=== PATIENT | male | born 1955 | race Caucasian/White ===

== ENCOUNTER 2019-07-27 12:36 | Inpatient (IN) | payer OTHER ==
[2019-07-27 13:16] LABS: Absolute Lymphocytes (CBC) 1.5 K/uL (0.7-4.9); Basophils % 0.6 % (0-1.3); Hematocrit 42.9 % (39.6-49.0); Lymphocytes % 11.2 % (15.3-44.8); MPV 8.4 fL (7.6-11.3); RBC Red Blood Cell Count 4.68 M/uL (4.33-5.43)
[2019-07-27 13:23] LABS: Protime INR 0.95
[2019-07-27 13:42] LABS: ALT/SGPT 15 U/L (12-78); AST/SGOT 19 U/L (15-37); Albumin 2.9 g/dL (3.4-5.0); Alkaline Phosphatase 89 U/L (45-117); BUN Blood Urea Nitrogen 14 mg/dL (7-18); Bicarbonate 30 mmol/L (21-32); Bilirubin Direct 0.2 mg/dL (0-0.2); Bilirubin Total 0.5 mg/dL (0.2-1.0); Glucose Level 102 mg/dL (74-106); Magnesium 2.3 mg/dL (1.8-2.4); NT PRO-BNP 192 pg/mL (<125); Potassium 3.9 mmol/L (3.5-5.1); Protein, Total 8.1 g/dL (6.4-8.2); Sodium Level 138 mmol/L (136-145); Troponin (Emerg Dept Use Only) < 0.02 ng/mL (0.0-0.045)
[2019-07-27] MEDS ORDERED: ENOXAPARIN 100 MG/ML SYR SQ ONE (14:08)
--- NOTE | 2019-07-27 14:22 | RAD REPORT ---
EXAM DESCRIPTION: CT - Chest For Pe Angio - 07/27/2019 2:12 pm CLINICAL HISTORY: Chest pain. dvt COMPARISON: No comparisons TECHNIQUE: CT angiogram of the pulmonary arteries was performed with MIP. All CT scans are performed using dose optimization technique as appropriate and may include automated exposure control or mA/KV adjustment according to patient size. FINDINGS: Small filling defects are seen within the pulmonary arterial branch to the posterior left lower lobe and medial right lower lobe suspected represent small distal pulmonary emboli. No more pro ximal significant pulmonary embolism seen. No acute aortic finding demonstrated. The lungs are clear. No significant pericardial or pleural fluid. No concerning bony finding. IMPRESSION: Small, distal subsegmental branch pulmonary emboli suspected in both posterior lower lob es. No acute lung findings.
--- NOTE | 2019-07-27 15:11 | ER ---
Nurse's Notes [facility] Name: Madeleine Ordoñez Age: 64 yrs Sex: Male : 1955 Arrival Date: 07/27/2019 Time: 12:40 Bed 18 Private MD: Diagnosis: Pulmonary embolism without acute cor pulmonale Presentation: 07/27 12:47 Presenting complaint: Patient states: Dr. Vazquez sent me here for US and they found a tw2 clot in my LEFT leg, my LEFT has been swollen for 1 month. Transition of care: patient was not received from another setting of care. Onset of symptoms was July 27, 2019. Risk Assessment: Do you want to hurt yourself or someone else? Patient reports no desire to harm self or others. Initial Sepsis Screen: Does the patient meet any 2 criteria? No. Patient's initial sepsis screen is negative. Does the patient have a suspected source of infection? No. Patient's initial sepsis screen is negative. Care prior to arrival: US. 12:47 Method Of Arrival: Wheelchair tw2 12:47 Acuity: SARA 3 tw2 Triage Assessment: 12:48 General: Appears in no apparent distress. unkempt, Behavior is cooperative. Pain: tw2 Denies pain. Derm:. Musculoskeletal: Swelling present in left leg. Historical: - Allergies: 12:49 No Known Allergies; tw2 - Home Meds: 12:49 None [Active]; tw2 - PMHx: 12:49 None; tw2 - PSHx: 12:49 None; tw2 - Immunization history:: Adult Immunizations. - Social history:: Smoking status: Patient uses tobacco products, smokes one pack cigarettes per day. x30 yrs, Patient uses alcohol, "4 beers daily, every day of week". street drugs, marijuana, "couple times a week". - Ebola Screening: : Patient denies travel to an Ebola-affected area in the 21 days before illness onset. Screenin:36 Abuse screen: Denies threats or abuse. Denies injuries from another. Nutritional aj1 screening: No deficits noted. Tuberculosis screening: No symptoms or risk factors identified. 16:12 Fall Risk Secondary diagnosis (15 points) impaired mobility. tw2 Assessment: 13:00 General: Appears in no apparent distress. comfortable, Behavior is calm, cooperative, aj1 appropriate for age. Pain: Denies pain. Neuro: Level of Consciousness is awake, alert, obeys commands, Oriented to person, place, time, situation. Cardiovascular: Heart tones S1 S2 present Patient's skin is warm and dry. Cardiovascular: Edema is 3+ to left leg. Respiratory: Airway is patent Respiratory effort is even, unlabored, Respiratory pattern is regular, symmetrical, Breath sounds are clear bilaterally. GI: No signs and/or symptoms were reported involving the gastrointestinal system. : No signs and/or symptoms were reported regarding the genitourinary system. EENT: No signs and/or symptoms were reported regarding the EENT system. Derm: No signs and/or symptoms reported regarding the dermatologic system. Skin is pale. Musculoskeletal: No signs and/or symptoms reported regarding the musculoskeletal system. Circulation, motion, and sensation intact. 14:00 Reassessment: Patient appears in no apparent distress at this time. No changes from aj1 previously documented assessment. Patient and/or family updated on plan of care and expected duration. Pain level reassessed. Patient is alert, oriented x 3, equal unlabored respirations, skin warm/dry/pink. 15:00 Reassessment: Patient appears in no apparent distress at this time. No changes from aj1 previously documented assessment. Patient and/or family updated on plan of care and expected duration. Pain level reassessed. Patient is alert, oriented x 3, equal unlabored respirations, skin warm/dry/pink. 15:00 Reassessment: Patient and/or family updated on plan of care and expected duration. Pain aj1 level reassessed. General: Appears in no apparent distress. comfortable, Behavior is calm, cooperative, appropriate for age. Neuro: Level of Consciousness is awake, alert, obeys commands, Oriented to person, place, time, situation. Cardiovascular: Heart tones S1 S2 present Patient's skin is warm and dry. Rhythm is sinus tachycardia. Respiratory: Airway is patent Respiratory effort is even, unlabored, Respiratory pattern is regular, symmetrical. GI: No signs and/or symptoms were reported involving the gastrointestinal system. : No signs and/or symptoms were reported regarding the genitourinary system. EENT: No signs and/or symptoms were reported regarding the EENT system. Derm: No signs and/or symptoms reported regarding the dermatologic system. Skin is pink, warm \\T\\ dry. normal. Musculoskeletal: Circulation, motion, and sensation intact. 15:30 Reassessment: Dr. Correa at bedside. aj1 16:00 Reassessment: Patient appears in no apparent distress at this time. No changes from aj1 previously documented assessment. Patient and/or family updated on plan of care and expected duration. Pain level reassessed. Patient is alert, oriented x 3, equal unlabored respirations, skin warm/dry/pink. 17:00 Reassessment: Patient and/or family updated on plan of care and expected duration. Pain aj1 level reassessed. General: Appears in no apparent distress. comfortable, Behavior is calm, cooperative, appropriate for age. Pain: Denies pain. Neuro: Level of Consciousness is awake, alert, obeys commands, Oriented to person, place, time, situation. Cardiovascular: Heart tones S1 S2 present Patient's skin is warm and dry. Rhythm is sinus tachycardia. Respiratory: Airway is patent Respiratory effort is even, unlabored, Respiratory pattern is regular, symmetrical. GI: No signs and/or symptoms were reported involving the gastrointestinal system. Derm: No signs and/or symptoms reported regarding the dermatologic system. Skin is pink, warm \\T\\ dry. normal. Musculoskeletal: No signs and/or symptoms reported regarding the musculoskeletal system. Circulation, motion, and sensation intact. 18:00 Reassessment: Patient appears in no apparent distress at this time. No changes from aj1 previously documented assessment. Patient and/or family updated on plan of care and expected duration. Pain level reassessed. Patient is alert, oriented x 3, equal unlabored respirations, skin warm/dry/pink. 18:27 Reassessment: Attempted to call report to floor, room not assigned to nurse at this hb time. 19:30 Reassessment: Patient appears in no apparent distress at this time. No changes from previously documented assessment. Patient and/or family updated on plan of care and expected duration. Pain level reassessed. Patient is alert, oriented x 3, equal unlabored respirations, skin warm/dry/pink. Vital Signs: 12:48 BP 137 / 112; Pulse 118; Resp 18; Temp 98.2(TE); Pulse Ox 100% on R/A; Weight 104.33 kg tw2 (R); Height 5 ft. 11 in. (180.34 cm); Pain 0/10; 13:36 BP 135 / 95; Pulse 108; Resp 19; Pulse Ox 96% on R/A; aj1 14:30 BP 131 / 85; Pulse 106; Resp 20; Pulse Ox 97% on R/A; aj1 15:30 BP 143 / 95; Pulse 103; Resp 20; Pulse Ox 95% on R/A; aj1 16:30 BP 148 / 84; Pulse 100; Resp 14; Pulse Ox 97% on R/A; aj1 17:30 BP 128 / 85; Pulse 106; Resp 18; Pulse Ox 95% on R/A; aj1 18:26 BP 126 / 79; Pulse 101; Resp 23; Pulse Ox 94% on R/A; aj1 19:31 BP 138 / 85; Pulse 92; Resp 15; Pulse Ox 92% on R/A; wh 12:48 Body Mass Index 32.08 (104.33 kg, 180.34 cm) tw2 ED Course: 12:40 Patient arrived in ED. as 12:46 Arm band placed on. tw2 12:48 Triage completed. tw2 12:54 Kash Glass MD is Attending Physician. tw4 12:57 Radiology exam delayed due to lab results not completed at this time. (BUN/Creatinine). vm2 13:00 Isabel Urbano RN is Primary Nurse. aj1 13:05 EKG done, by electronic test technician. reviewed by Kash Glass MD. sm3 13:08 Initial lab(s) drawn, by il, sent to lab. Inserted saline lock: 22 gauge in right kj1 antecubital area, using aseptic technique. Blood collected. 13:26 Radiology exam delayed due to lab results not completed at this time. (BUN/Creatinine). vm2 13:36 Patient has correct armband on for positive identification. aj1 13:36 No provider procedures requiring assistance completed. aj1 14:12 CT Chest For PE Angio In Process Unspecified. EDMS 15:09 Carmen Correa MD is Hospitalizing Provider. tw4 18:28 Patient admitted, IV remains in place. aj1 18:48 Report given to JOHN Tee on 2nd floor. aj1 Administered Medications: 14:23 Drug: Lovenox 1 mg/kg Route: Sub-Q; Site: right lower abdomen; aj1 18:27 Follow up: Response: No adverse reaction aj1 Outcome: 15:10 Decision to Hospitalize by Provider. tw4 19:50 Admitted to Tele accompanied by tech, via wheelchair, with chart. aj1 19:50 Condition: stable 19:50 Discharge instructions given to patient, Instructed on the need for admit, Demonstrated understanding of instructions. 19:56 Patient left the ED. Signatures: Dispatcher [employer] EDMS Isabel Urbano RN RN aj1 Cande Dobson Heather, RN RN Liane Luna RN RN tw2 Abigail Lopez 2 Charissa Leon Kash Glass MD MD tw4 Sarah Ellsworth sm3 Jasmyn Alcocer kj1
--- NOTE | 2019-07-27 15:11 | EDPHYS ---
Physician Documentation [facility] Name: Madeleine Ordoñez Age: 64 yrs Sex: Male : 1955 Arrival Date: 07/27/2019 Time: 12:40 Bed 18 Private MD: ED Physician Kash Glass HPI: 07/27 15:57 This 64 yrs old Male presents to ER via Wheelchair with complaints of Leg tw4 Swelling - blood clot. 15:57 The patient presents with swelling. The complaints affect the left quadriceps, left tw4 knee and left lovett. Context: The problem was sustained at home, resulted from. Onset: The symptoms/episode began/occurred today. Modifying factors: The symptoms are alleviated by nothing. the symptoms are aggravated by nothing. Severity of symptoms: At their worst the symptoms were moderate, in the emergency department the symptoms are unchanged. Historical: - Allergies: 12:49 No Known Allergies; tw2 - Home Meds: 12:49 None [Active]; tw2 - PMHx: 12:49 None; tw2 - PSHx: 12:49 None; tw2 - Immunization history:: Adult Immunizations. - Social history:: Smoking status: Patient uses tobacco products, smokes one pack cigarettes per day. x30 yrs, Patient uses alcohol, "4 beers daily, every day of week". street drugs, marijuana, "couple times a week". - Ebola Screening: : Patient denies travel to an Ebola-affected area in the 21 days before illness onset. ROS: 15:57 Constitutional: Negative for fever, chills, and weight loss, Eyes: Negative for injury, tw4 pain, redness, and discharge, Cardiovascular: Negative for chest pain, palpitations, and edema, Respiratory: Negative for shortness of breath, cough, wheezing, and pleuritic chest pain, Abdomen/GI: Negative for abdominal pain, nausea, vomiting, diarrhea, and constipation. 15:57 Skin: Negative for injury, rash, and discoloration, Neuro: Negative for headache, weakness, numbness, tingling, and seizure. 15:57 MS/extremity: Positive for swelling, tenderness. Exam: 15:57 Constitutional: This is a well developed, well nourished patient who is awake, alert, tw4 and in no acute distress. Head/Face: Normocephalic, atraumatic. Chest/axilla: Normal chest wall appearance and motion. Nontender with no deformity. No lesions are appreciated. Cardiovascular: Regular rate and rhythm with a normal S1 and S2. No gallops, murmurs, or rubs. Normal PMI, no JVD. No pulse deficits. Respiratory: Lungs have equal breath sounds bilaterally, clear to auscultation and percussion. No rales, rhonchi or wheezes noted. No increased work of breathing, no retractions or nasal flaring. Abdomen/GI: Soft, non-tender, with normal bowel sounds. No distension or tympany. No guarding or rebound. No evidence of tenderness throughout. Back: No spinal tenderness. No costovertebral tenderness. Full range of motion. 15:57 Neuro: Awake and alert, GCS 15, oriented to person, place, time, and situation. Cranial nerves II-XII grossly intact. Motor strength 5/5 in all extremities. Sensory grossly intact. Cerebellar exam normal. Normal gait. 15:57 Musculoskeletal/extremity: Extremities: noted in the left quadriceps, left knee and left lovett: swelling. Vital Signs: 12:48 BP 137 / 112; Pulse 118; Resp 18; Temp 98.2(TE); Pulse Ox 100% on R/A; Weight 104.33 kg tw2 (R); Height 5 ft. 11 in. (180.34 cm); Pain 0/10; 13:36 BP 135 / 95; Pulse 108; Resp 19; Pulse Ox 96% on R/A; aj1 14:30 BP 131 / 85; Pulse 106; Resp 20; Pulse Ox 97% on R/A; aj1 15:30 BP 143 / 95; Pulse 103; Resp 20; Pulse Ox 95% on R/A; aj1 16:30 BP 148 / 84; Pulse 100; Resp 14; Pulse Ox 97% on R/A; aj1 17:30 BP 128 / 85; Pulse 106; Resp 18; Pulse Ox 95% on R/A; aj1 18:26 BP 126 / 79; Pulse 101; Resp 23; Pulse Ox 94% on R/A; aj1 19:31 BP 138 / 85; Pulse 92; Resp 15; Pulse Ox 92% on R/A; wh 12:48 Body Mass Index 32.08 (104.33 kg, 180.34 cm) tw2 MDM: 12:54 Patient medically screened. tw4 15:57 Data reviewed: vital signs, nurses notes. Counseling: I had a detailed discussion with tw4 the patient and/or guardian regarding: the historical points, exam findings, and any diagnostic results supporting the discharge/admit diagnosis. Special discussion: I discussed with the patient/guardian in detail that at this point there is no indication for admission to the hospital. It is understood, however, that if the symptoms persist or worsen the patient needs to return immediately for re-evaluation. 16:00 Differential diagnosis: dislocation, open fracture, closed fracture, contusion, tw4 abrasion. Data interpreted: Pulse oximetry: Interpretation: normal. Physician consultation: Carmen Correa MD regarding admission, to the telemetry unit. and will see patient in ED. 07/27 12:55 Order name: Basic Metabolic Panel; Complete Time: 13:53 [facility] 07/27 13:53 Interpretation: Normal except: GFR 75. 07/27 12:55 Order name: CBC with Diff; Complete Time: 13:53 [facility] 07/27 13:53 Interpretation: Normal except: WBC 13.8; MAUREEN% 81.7; LYM% 11.2; NEUT A 11.3. 07/27 12:55 Order name: LFT's; Complete Time: 13:53 [facility] 07/27 13:53 Interpretation: Normal except: ALB 2.9; GLOB 5.2; A/G 0.6. 07/27 12:55 Order name: Magnesium; Complete Time: 13:53 [facility] 07/27 13:53 Interpretation: Within normal limits: MG 2.3. 07/27 12:55 Order name: NT PRO-BNP; Complete Time: 13:53 07/27 13:53 Interpretation: Normal except: NT PRO-BNP 192. 07/27 12:55 Order name: PT-INR; Complete Time: 13:53 07/27 13:54 Interpretation: Within normal limits: PT 11.2. 07/27 12:55 Order name: Troponin (emerg Dept Use Only); Complete Time: 13:53 07/27 13:54 Interpretation: Within normal limits: TROPED < 0.02. 07/27 12:55 Order name: EKG; Complete Time: 12:56 tw4 07/27 12:55 Order name: Cardiac monitoring; Complete Time: 13:04 4 07/27 12:55 Order name: EKG - Nurse/Tech; Complete Time: 13:04 4 07/27 12:55 Order name: CT Chest For PE Angio; Complete Time: 14:26 4 07/27 14:28 Interpretation: Abnormal. 07/27 15:07 Order name: Diet Regular; Complete Time: 15:08 kj1 07/27 12:55 Order name: IV Saline Lock; Complete Time: 13:16 4 07/27 12:55 Order name: Labs collected and sent; Complete Time: 13:16 4 07/27 12:55 Order name: O2 Per Protocol; Complete Time: 13:04 4 07/27 12:55 Order name: O2 Sat Monitoring; Complete Time: 13:04 4 Administered Medications: 14:23 Drug: Lovenox 1 mg/kg Route: Sub-Q; Site: right lower abdomen; aj1 18:27 Follow up: Response: No adverse reaction aj Disposition: 07/27/19 15:10 Hospitalization ordered by Carmen Correa for Inpatient Admission. Preliminary diagnosis is Pulmonary embolism without acute cor pulmonale. - Bed requested for Telemetry/MedSurg (Inpatient). - Status is Inpatient Admission. - Condition is Stable. - Problem is new. - Symptoms have improved. UTI on Admission? No Signatures: Dispatcher [employer] EDPA Darshana Kauffman Isabel Urbano RN RN aj1 Ananya Hanson RN RN dw Liane Luna RN RN tw2 Charissa Leon Kash Glass MD MD tw4 Corrections: (The following items were deleted from the chart) 13:24 12:56 Chest Single View+RAD.RAD.BRZ ordered. [facility] EDPA 16:21 15:10 Hospitalization Ordered by Carmen Correa MD for Inpatient Admission. Preliminary diagnosis is Pulmonary embolism without acute cor pulmonale. Bed requested for Telemetry/MedSurg (Inpatient). Status is Inpatient Admission. Condition is Stable. Problem is new. Symptoms have improved. UTI on Admission? No. tw4 17:49 16:21 07/27/2019 15:10 Hospitalization Ordered by Carmen Correa MD for Inpatient bd Admission. Preliminary diagnosis is Pulmonary embolism without acute cor pulmonale. Bed requested for Telemetry/MedSurg (Inpatient). Status is Inpatient Admission. Condition is Stable. Problem is new. Symptoms have improved. UTI on Admission? No. dw 19:56 17:49 07/27/2019 15:10 Hospitalization Ordered by Carmen Correa MD for Inpatient Admission. Preliminary diagnosis is Pulmonary embolism without acute cor pulmonale. Bed requested for Telemetry/MedSurg (Inpatient). Status is Inpatient Admission. Condition is Stable. Problem is new. Symptoms have improved. UTI on Admission? No. bd
--- NOTE | 2019-07-27 15:51 | EKG ---
Test Date: 2019-07-27 Test Time: 12:58:44 Forecast Analyst: CHIDI MEASUREMENT RESULTS: Intervals: Rate: 108 NM: 210 QRSD: 102 QT: 332 QTc: 444 [place]: P: 32 NM: 210 QRS: 12 T: 37 INTERPRETIVE STATEMENTS: Sinus tachycardia with 1st degree AV block with premature supraventricular complexes Possible Inferior infarct, age undetermined Cannot rule out Anteroseptal infarct, age undetermined Abnormal ECG No previous ECG available for comparison Electronically Signed On 07-27-19 15:50:58 CDT by Chung Bal
[2019-07-27] MEDS ORDERED: HYDROCODONE/APAP 7.5/325 MG TAB PO PRN (19:26)
[2019-07-27] MEDS ORDERED: LORazepam 2 MG/ML VIAL IV PRN (19:26)
[2019-07-27] MEDS ORDERED: FLUMAZENIL 0.1 MG/ML (5 mL VIAL) IV PRN (19:26)
[2019-07-27] MEDS ORDERED: ACETAMINOPHEN 500 MG TAB PO PRN (19:26)
[2019-07-27] MEDS ORDERED: ONDANSETRON 4 MG/2 ML VIAL IV PRN (19:26)
[2019-07-27] MEDS: IPRATROPIUM BROM 0.5MG/2.5ML NEB SCH (20:21)
[2019-07-27] MEDS: ALBUTEROL 2.5 MG/3 ML NEB SOL NEB SCH (20:21)
[2019-07-28] MEDS: ALBUTEROL 2.5 MG/3 ML NEB SOL NEB SCH ×4 (01:24→20:00)
[2019-07-28] MEDS: IPRATROPIUM BROM 0.5MG/2.5ML NEB SCH ×4 (01:24→20:00)
[2019-07-28] MEDS ORDERED: ENOXAPARIN 100 MG/ML SYR SQ SCH (02:00)
--- NOTE | 2019-07-28 02:36 | HP ---
Date of Admission: 07/27/2019 Primary Care Physician: Dony Vazquez MD. Consultants: Dr. Bob with Pulmonology. Code Status: Full. Chief Complaint: Left lower extremity swelling. History Of Present Illness: The patient is a 64-year-old male with no significant past medical histo ry other than undiagnosed COPD, who drinks alcohol on almost daily basis and smokes 3 packs of cigare ttes for over 30 years, has not seen a physician for a long period of time, saw Dr. Vazquez today, was f ound to have lower extremity swelling, had a Doppler venous study done as an outpatient basis, which was positive for left lower extremity DVT. Patient was transferred directly to the ER from the [facility] department. Patient states that he has been having swelling of his legs for the past several d ays his largely immobile at home. Lives with his sister and other brother. CT scan was also done, w hich showed bilateral PE. Patient was not found to be hypoxic. His symptoms are constant, moderate, progressively worsening. His workup revealed a white count of 13,000. Electrolytes were within nor mal limits. Troponin was negative. Patient was then referred for admission. When seen in the ER, salud bartlett was awake, alert, oriented x3, in some mild distress. The patient received a dose of Lovenox x1. Past Medical History: Patient has not been to a physician in a very long period of time, however, is a daily smoker for the past 30 years likely has undiagnosed COPD, certainly has a symptoms. Patient also has apparent history of essential tremors. Past Surgical History: None. Allergies: NO KNOWN DRUG ALLERGIES. Medications: The patient does not take any medications at home. Social History: Patient smokes approximately 1-1/2 to 3 packs per day for over 30 years. Drinks abo ut 4 beers daily and does use marijuana couple of times a week. No IV drug use. Patient lives at [facility] with his sister and brother, largely immobile, and leads a sedentary lifestyle. Family History: Both mother and brother had history of blood clots. Mother also had emphysema and l lindsay cancer, status post resection. Review of Systems: Ten-point system reviewed, negative except as per HPI. Physical Examination: Vital Signs: Blood pressure 137/112, pulse 118, respirations 18, temperature 98.2, O2 100% on room a ir. General: Awake, alert, oriented x3, obese male, ill-appearing, appears older than stated age. HEENT: Normocephalic, atraumatic. PERRLA. EOMI. Moist mucous membranes. Poor oral dentition. Co njunctivae anicteric. Neck: Supple. No JVD. Trachea midline. CV: S1 and S2. Sinus tachycardia. Peripheral pulses weak. RESPIRATORY: Clear to auscultation bilaterally. No wheezing or stridor. No use of accessory muscle s. Gastrointestinal: Abdomen is soft, nontender, nondistended. Positive bowel sounds. No guarding or rigidity. Extremities: No clubbing or cyanosis. Patient has significant edema of the left lower extremity ext ending all the way up to the thigh with calf tenderness. NEURO: Cranial nerves 2 through 12 intact grossly. No focal neurological deficit. Speech is normal . No focal neurological deficit. Skin: Left lower extremity erythema with streaking from the leg all the way up to the anterior media l thigh. Warm to touch. Minimal tenderness to palpation. PSYCH: Mood is okay. Affect is flat. Insight and judgment are fair. Laboratory Data: Sodium 138, potassium 3.9, chloride 103, CO2 of 30, BUN 14, creatinine 1, glucose 1 02, calcium 8.8, magnesium 2.3. Troponin less than 0.02. Albumin 2.9. INR 0.95. WBC 13.8, H and H 14.6 and 42.9, platelets 337, neutrophils 81%. Imaging Studies: CT scan for PE protocol shows small distal subsegmental branch pulmonary emboli alo pected in both posterior lower lobes. No acute lung findings. Extremity venous with compression of bilateral shows positive for left lower extremity DVT from the level of the common femoral vein to th e popliteal vein. No right lower extremity DVT seen. EKG shows sinus tachycardia with first-degree AV block with premature supraventricular complexes, possible inferior infarct, age undetermined. No previous EKG for comparison. Assessment And Plan: A 64-year-old male with: 1.Acute bilateral pulmonary embolism. Patient is not hypoxic. Patient will need to be on blood thi nners. We will start on Lovenox 1 mg/kg q.12 hours and transition to oral blood thinners. This is l ikely provoked due to immobility and sedentary lifestyle. May have genetic component due to family h istory of blood clots. We will likely benefit from hypercoagulable workup as an outpatient. We will consult Pulmonology. Obtain echocardiogram to rule out right ventricular strain. 2.Acute deep venous thrombosis of the common femoral vein all the way to the popliteal vein of the l eft lower extremity initial encounter. We will continue on Lovenox, likely provoked as mentioned abo ve. 3.Alcohol dependence. Patient is a chronic alcoholic with daily drinking. We will start on banana bag with multivitamins, IV fluids. We will place on Ativan p.r.n. We will need to monitor using CIW A protocol for withdrawal. 4.Likely chronic obstructive pulmonary disease. Patient has never been officially diagnosed; felipe lipscomb, has been smoker for over 30 years. Does report some shortness of breath with exertion. We will p lace on nebulizer treatments and no wheezing at this time. We will avoid steroids. 5.Essential tremor. 6.First-degree AV block. 7.Deep venous thrombosis prophylaxis addressed with Lovenox. Plan: Admit the patient to Med-Surg, place as inpatient. Length of stay, greater than 2 midnights. BETHANY Voice ID: [id number]
[2019-07-28 06:04] LABS: Absolute Lymphocytes (CBC) 2.5 K/uL (0.7-4.9); Basophils % 0.9 % (0-1.3); Hematocrit 36.8 % (39.6-49.0); Lymphocytes % 28.7 % (15.3-44.8); MPV 8.5 fL (7.6-11.3); RBC Red Blood Cell Count 4.03 M/uL (4.33-5.43)
[2019-07-28 06:20] LABS: ALT/SGPT 11 U/L (12-78); AST/SGOT 16 U/L (15-37); Albumin 2.4 g/dL (3.4-5.0); Alkaline Phosphatase 75 U/L (45-117); BUN Blood Urea Nitrogen 16 mg/dL (7-18); Bicarbonate 32 mmol/L (21-32); Bilirubin Total 0.4 mg/dL (0.2-1.0); Glucose Level 87 mg/dL (74-106); Magnesium 2.3 mg/dL (1.8-2.4); Phosphorus 3.3 mg/dL (2.5-4.9); Potassium 3.7 mmol/L (3.5-5.1); Protein, Total 6.7 g/dL (6.4-8.2); Sodium Level 140 mmol/L (136-145)
[2019-07-28] MEDS ORDERED: PNEUMOCOCCAL VACCINE 0.5 ML IMVAC ONE (08:00)
[2019-07-28] MEDS ORDERED: INFLUENZA VACCINE (for 3y+) 0.5 ML DOSE IMVAC ONE (08:00)
--- NOTE | 2019-07-28 08:36 | P.CNS ---
Date of Consult: 07/28/19 Reason for Consult: Massive DVT Chief Complaint: Swelling of her lower extremity for the past month History of Present Illness: Patient is 64 years of age admitted with progressive lower extremity edema for the past month he had a massive DVT in he involving his entire left leg denies any pain patient can ambulate no prior history of thromboembolic disease he does not have any medical problems does not take any other medications or anticoagulants no prior history of DVT no recent surgeries Allergies No Known Allergies Allergy (Verified 07/27/19 20:03) Home Medications: NK [No Home Meds] 07/27/19 - Past Medical/Surgical History Diabetic: No Past Medical History: Patient denies medical history Past Surgical History: Patient denies surgical history - Family History Father Medical History: Hypertension, Cancer Mother Medical History: Hypertension - Social History Smoking Status: Current every day smoker Alcohol use: Yes Caffeine use: Yes Place of Residence: Home Review of Systems 10-point ROS is otherwise unremarkable Cardiovascular: Edema (Edema of his left leg) Physical Examination Temp Pulse Resp BP Pulse Ox 98.2 F 94 H 18 132/82 98 07/28/19 04:00 07/28/19 04:00 07/28/19 04:00 07/28/19 04:00 07/28/19 04:00 General: Alert, In no apparent distress, Oriented x3 Neck: Supple Respiratory: Clear to auscultation bilaterally Cardiovascular: Edema (Massive edema of the left leg) Capillary refill: <2 Seconds Gastrointestinal: Normal bowel sounds, Soft and benign Laboratory Data (last 24 hrs) 07/27/19 13:08: PT 11.2, INR 0.95 07/27/19 13:08: WBC 13.8 H, Hgb 14.6, Hct 42.9, Plt Count 337 07/27/19 13:08: Sodium 138, Potassium 3.9, BUN 14, Creatinine 1.00, Glucose 102 , Magnesium 2.3, Total Bilirubin 0.5, AST 19, ALT 15, Alkaline Phosphatase 89 - Problems (1) DVT (deep venous thrombosis) Current Visit: Yes Status: Acute Plan: Patient is 64 years of age admitted with progressive edema of the left leg his left leg is significantly larger than the right leg he denies any pain patient is ambulating this has been progressive over the past month no prior history of thromboembolism no prior history of any medical problems he does not take any blood thinners including nonsteroidals or aspirin at home. No recent surgery. He does not take any of the medication the of the extent of his thrombosis will plan to administer thrombolytics therapy 100 mg over 2 hr of discuss with the patient in the presence of his son regarding the risks which include bleeding GI intracranial debriding the risk is less than 5% and increased to IV treatment versus transferring to [place] for him back to ri or catheter directed thrombolysis his hemodynamically stable as a small PE vital signs are stable patient receive Lovenox at 2:00 a.m. will proceed to giving him thrombolytics therapy 100 mg over 2 hr at around 2:00 p.m. transferred him to the ICU laboratory data all reviewed including radiology scans Qualifiers: DVT location: lower extremity Affected thrombotic vein of extremity: other lower extremity vein
[2019-07-28] MEDS ORDERED: POTASSIUM CL SA 10 MEQ TAB PO ONE (09:00)
[2019-07-28] MEDS ORDERED: FOLIC ACID 1 MG, MULTIVITAMINS INJ 10 ML, THIAMINE HCL 100 MG in NA CHLORIDE 0.9% 1,000 ML IV SCH (09:00)
[2019-07-28] MEDS: NICOTINE 21 MG/PAT TD SCH (09:00)
[2019-07-28 11:59] LABS: Protime INR 0.95
--- NOTE | 2019-07-28 12:42 | PN ---
Patient seen and examined. Chart reviewed and case discussed with RN and Dr. Bob. Patient mitchel es any significant pain. Continues to have significant swelling of his left lower extremity with hea vy clot burden. Medications: List reviewed. Physical Examination: Vital Signs: Temperature 98.2, heart rate 94, blood pressure 141/86, respirations 16, O2 at 99% on r oom air. General: Awake, alert, oriented x3. Some mild distress. Obese male, appears older than stated age. CV: S1, S2. Regular rate and rhythm. Peripheral pulses present. Respiratory: Moving air well bilaterally. No wheezing or stridor. No use of accessory muscles Jaki rointestinal: Abdomen is soft, nontender, nondistended. Positive bowel sounds. No guarding, no rig idity. Extremities: No clubbing or cyanosis. Patient has significant edema of the left lower extremity. Skin: Erythema, streaking of the left lower extremity with tenderness to palpation. Warm to touch. Neurologic: Nonfocal. Laboratory Data: Sodium 140, potassium 3.7, chloride 105, CO2 of 32, BUN 16, creatinine 0.81, glucos e 87, calcium 8.4, phosphorus 3.3, magnesium 2.3, albumin 2.4. WBC 8.8, H and H 12.6 and 36.8. Plat elets 325, neutrophils 59%. Assessment And Plan: 64-year-old male with: 1.Acute bilateral PE, stable. Continue with blood thinners. Patient is not hypoxic. Echocardiogra m is pending. Appreciate Pulmonology input. 2.Acute deep vein thrombosis of the left common femoral vein to the popliteal vein. Initial encount er, we will continue with Lovenox. However, patient will receive thrombolytics this afternoon due to heavy clot burden. Patient understands risks, wishes to proceed. He understands the alternatives w [facility] would be thrombectomy in [place], is agreeable to thrombolytics. We will transfer to ICU and gonzalez espinoza closely. 3.Alcohol dependence. We will continue with multivitamins and IV fluids. Ativan p.r.n. Watch for signs of withdrawal using CIWA protocol. 4.Chronic obstructive pulmonary disease. The patient has no official diagnosis however, has been a smoker for over 30 years. Continue with nebulizer treatments and supplemental oxygen as needed. 5.Essential tremor. 6.First-degree AV block. 7.Deep vein thrombosis prophylaxis. The patient is on Lovenox. Plan: Transfer to ICU. Thrombolytics this afternoon. Patient will need to be transitioned to oral anticoagulants before discharge, may benefit from hypercoagulable workup as outpatient once acute caryl atment has taken place. /SAMIA Voice ID: [id number] Report ID: [id number]
[2019-07-28] MEDS ORDERED: ALTEPLASE 100 ML IV ONE (14:00)
--- NOTE | 2019-07-28 14:13 | ECHO ---
HEIGHT: 5 ft 11 in WEIGHT: 230 lb 0 oz DATE OF STUDY: 07/28/[address]: Carmen Correa MD 2-DIMENSIONAL: YES M.MODE: YES DOPPLER: YES COLOR FLOW: YES TDS: YES PORTABLE: DEFINITY: BUBBLE STUDY: DIAGNOSIS: PULMONARY EMBOLISM, RULE OUT RIGHT VENTRICULAR STRAIN CARDIAC HISTORY: CATHERIZATION: NO SURGERY: NO PROSTHETIC VALVE: NO PACEMAKER: NO MEASUREMENTS (cm) DIASTOLIC (NORMALS) SYSTOLIC (NORMALS) IVSd 1.1 (0.6-1.2) LA Diam 3.5 (1.9-4.0) LVEF 55% LVIDd 4.6 (3.5-5.7) LVIDs 3.3 (2.0-3.5) %FS 29% LVPWd 1.1 (0.6-1.2) Ao Diam 3.1 (2.0-3.7) 2 DIMENSIONAL ASSESSMENT: RIGHT ATRIUM: NORMAL LEFT ATRIUM: NORMAL RIGHT VENTRICLE: NORMAL LEFT VENTRICLE: NORMAL TRICUSPID VALVE: NORMAL MITRAL VALVE: NORMAL PULMONIC VALVE: NORMAL AORTIC VALVE: NORMAL PERICARDIAL EFFUSION: NONE AORTIC ROOT: NORMAL LEFT VENTRICULAR WALL MOTION: NORMAL DOPPLER/COLOR FLOW: IMPAIRED LEFT VENTRICULAR RELAXATION. PHYSIOLOGIC TRICUSPID REGURGITATION. COMMENTS: NORMAL 2-DIMENSIONAL ECHOCARDIOGRAM. IMPAIRED LEFT VENTRICULAR RELAXATION. NORMAL RIGHT VENTRICULAR SYSTOLIC PRESSURE. NORMAL APPEARING RIGHT VENTRICLE. TECHNOLOGIST: LOREN CAMPOS
[2019-07-28] MEDS ORDERED: NA CHLORIDE 0.9% 50 ML ONE (15:00)
[2019-07-28 18:30] VITALS: BMI 32.2
[2019-07-28] MEDS: ENOXAPARIN 100 MG/ML SYR SQ SCH (23:32)
[2019-07-29] MEDS: IPRATROPIUM BROM 0.5MG/2.5ML NEB SCH ×2 (02:00→07:44)
[2019-07-29] MEDS: ALBUTEROL 2.5 MG/3 ML NEB SOL NEB SCH ×2 (02:00→07:44)
[2019-07-29 05:06] LABS: Absolute Lymphocytes (CBC) 1.9 K/uL (0.7-4.9); Basophils % 0.9 % (0-1.3); Hematocrit 35.9 % (39.6-49.0); Lymphocytes % 20.8 % (15.3-44.8); MPV 8.6 fL (7.6-11.3); RBC Red Blood Cell Count 3.93 M/uL (4.33-5.43)
[2019-07-29 05:24] LABS: ALT/SGPT 10 U/L (12-78); AST/SGOT 21 U/L (15-37); Albumin 2.3 g/dL (3.4-5.0); Alkaline Phosphatase 70 U/L (45-117); BUN Blood Urea Nitrogen 17 mg/dL (7-18); Bicarbonate 30 mmol/L (21-32); Bilirubin Total 0.4 mg/dL (0.2-1.0); Glucose Level 96 mg/dL (74-106); Potassium 3.6 mmol/L (3.5-5.1); Protein, Total 6.2 g/dL (6.4-8.2); Sodium Level 142 mmol/L (136-145)
[2019-07-29 06:46] LABS: Magnesium 2.1 mg/dL (1.8-2.4)
[2019-07-29] MEDS ORDERED: ALBUTEROL 2.5 MG/3 ML NEB SOL NEB PRN (08:01)
--- NOTE | 2019-07-29 08:03 | P.PN ---
Subjective Date of Service: 07/29/19 Chief Complaint: Massive DVT of the left leg Subjective: Improving (No change in patient's condition denies any pain in his left leg status post t-PA) Review of Systems Unremarkable Physical Examination - Vital Signs Temperature: 98.7 F Blood Pressure: 129/80 Pulse: 79 Respirations: 19 Pulse Ox (%): 99 - Physical Exam General: Alert, Oriented x3 Neck: Supple Respiratory: Clear to auscultation bilaterally Cardiovascular: Edema (Still has significant edema of the left leg. No cyanosis ) Assessment & Plan - Problems (Diagnosis) (1) DVT (deep venous thrombosis) Current Visit: Yes Status: Acute Plan: Patient is status post t-PA will monitor mid thigh a admit calf diameters resume Lovenox patient can ambulate vital signs satisfactory chemistries unremarkable patient can be transferred to the floor in this worsening of her edema are no change may consider a thrombectomy at a tertiary care hospital Qualifiers: DVT location: lower extremity Affected thrombotic vein of extremity: other lower extremity vein
[2019-07-29] MEDS: ENOXAPARIN 100 MG/ML SYR SQ SCH ×2 (08:57→20:49)
[2019-07-29] MEDS ORDERED: POTASSIUM 25 MEQ EFFERV TAB PO ONE (09:00)
[2019-07-29] MEDS: NICOTINE 21 MG/PAT TD SCH (09:00)
--- NOTE | 2019-07-29 12:24 | PN ---
Date of Progress Note: 07/29/2019 Subjective: Patient seen and examined. Chart reviewed and case discussed with RN and Dr. Bob. The patient was transferred to the ICU yesterday for tPA. He states he is doing better, tolerated the tPA well. Does not complain of any pain. Shortness of breath has improved. Medications: List reviewed. Physical Examination: Vital Signs: Temperature 98.7, heart rate 79, blood pressure 129/80, respirations 19, O2 99% on 2 L via nasal cannula. General: Awake, alert, oriented x3, obese male, in some mild distress, improving. CV: S1, S2. Regular rate and rhythm. Peripheral pulses present. Respiratory: Moving air well bilaterally. No wheezing or stridor. No use of accessory muscles. Gastrointestinal: Abdomen is soft, nontender, nondistended. Positive bowel sounds. No guarding or rigidity. Extremities: No clubbing or cyanosis. The patient has 3+ edema of the left lower extremity. Skin: Erythema of the left lower extremity. No rashes. Neuro: Cranial nerves 2 through 12 intact grossly. No focal neurological deficits. Sensation intact to light touch. Speech is normal. Laboratory Data: Sodium 142, potassium 3.6, chloride 109, CO2 30, BUN 17, creatinine 0.65, glucose 96, calcium 7.9, magnesium 2.1, albumin 2.3. WBC 9.1, H and H 12.3 and 35.9, platelets 282, neutrophils 67%. Assessment And Plan: This 64-year-old male with. 1. Acute bilateral PE. Patient is on room air, saturating well. We will continue with Lovenox. Echocardiogram revealed EF of 55%, impaired left ventricular relaxation, normal right ventricular systolic pressure, normal- appearing right ventricle. 2. Acute deep vein thrombosis of the left common femoral vein to the popliteal vein on initial encounter. The patient is status post tPA, now back on Lovenox. The patient has significant amount of swelling, slightly improved. We will continue to measure thigh and calf. May need thrombectomy if not improving. No signs of compartment syndrome at this time. 3. Alcohol dependence. Continue with multivitamins. Ativan p.r.n. We will continue to monitor for withdrawal symptoms using CIWA protocol. 4. Chronic obstructive pulmonary disease. Continue with nebulizer treatments and supplemental oxygen as needed. 5. Essential tremor. 6. First-degree AV block. 7. Deep venous thrombosis prophylaxis with Lovenox. Plan: Step down from ICU. We will continue Lovenox. Monitor for signs of improvement, likely discharge in the next 48 to 72 hours depending on clinical response. If worsening will need transfer for thrombectomy. Will ambulate, PT eval. SA/MODL Voice ID: [id number] Report ID: [id number] [facility]
[2019-07-29] MEDS ORDERED: ENOXAPARIN 100 MG/ML SYR SQ SCH (23:00)
[2019-07-30 05:07] LABS: ALT/SGPT 10 U/L (12-78); AST/SGOT 17 U/L (15-37); Albumin 2.4 g/dL (3.4-5.0); Alkaline Phosphatase 74 U/L (45-117); BUN Blood Urea Nitrogen 19 mg/dL (7-18); Bicarbonate 30 mmol/L (21-32); Bilirubin Total 0.3 mg/dL (0.2-1.0); Glucose Level 95 mg/dL (74-106); HDL Cholesterol 36 mg/dL (40-60); LDL Cholesterol, Calculated 124 (<130); Potassium 3.8 mmol/L (3.5-5.1); Protein, Total 6.5 g/dL (6.4-8.2); Sodium Level 142 mmol/L (136-145)
[2019-07-30] MEDS ORDERED: POTASSIUM 25 MEQ EFFERV TAB PO ONE (09:00)
[2019-07-30] MEDS: NICOTINE 21 MG/PAT TD SCH (09:00)
[2019-07-30] MEDS: ENOXAPARIN 100 MG/ML SYR SQ SCH (09:24)
--- NOTE | 2019-07-30 12:36 | P.PN ---
Subjective Date of Service: 07/30/19 Chief Complaint: Massive DVT of the left leg Subjective: Improving (Patient is improving he still complains of swelling in his leg up on measurements is thigh circumference is increased leg is still very swollen and warm patient still denies any pain) Review of Systems Unremarkable Physical Examination - Vital Signs Temperature: 98.0 F Blood Pressure: 138/80 Pulse: 95 Respirations: 16 Pulse Ox (%): 94 - Physical Exam General: Alert, In no apparent distress, Oriented x3 Respiratory: Clear to auscultation bilaterally Cardiovascular: Edema (Significant edema of the left leg ) Assessment & Plan - Problems (Diagnosis) (1) DVT (deep venous thrombosis) Current Visit: Yes Status: Acute Plan: Status post t-PA for extensive DVT involving the left leg no significant change this left leg is still very swollen patient denies any pain he is able to bear weight as left leg is swollen and warm recommend transfer to a tertiary care facility small pulmonary emboli denies any shortness of breath echocardiogram normal no evidence of right ventricular strain vital signs stable Qualifiers: DVT location: lower extremity Affected thrombotic vein of extremity: other lower extremity vein
[2019-07-30 13:09] VITALS: O2SAT 94
--- NOTE | 2019-07-30 15:06 | RAD REPORT ---
[facility] 2:59 pm CLINICAL HISTORY: Left leg swelling COMPARISON: leg ultrasound July 27, 2019 FINDINGS: Echogenic material consistent with acute thrombus is visualized within the left common naida ac and left external iliac veins. The IMPRESSION: Acute thrombus the left common iliac and left external iliac veins
[2019-07-30 17:55] VITALS: BP 136/81; TEMP 98.5
--- NOTE | 2019-07-30 18:26 | PN ---
Date of Progress Note: 07/30/2019 Subjective: Patient seen and examined. Chart reviewed and case discussed with RN and Dr. Bob. Patient still having significant amount of swelling. Family at the bedside. Treatment plan explained. All questions answered. Denies any significant pain. Medication List: Reviewed. Physical Examination: Vital Signs: Temperature 98, heart rate 95, blood pressure 138/80, respirations 16, O2 94% on room air. General: Awake, alert, oriented x3. Elderly male, appears older than his stated age, obese, not in any acute distress. CV: S1, S2. Regular rate and rhythm. Peripheral pulses present. RESPIRATORY: Moving air well bilaterally. No wheezing or stridor. No use of accessory muscles. Gastrointestinal: Abdomen is soft, nontender, nondistended. Positive bowel sounds. Extremities: No clubbing or cyanosis. Patient has 3+ edema of the left lower extremity. Skin: Significant erythema of the left lower extremity, slightly improved from previous. Warm to touch. Tender to palpation. Neuro: Cranial nerves intact. Nonfocal. Neurovascularly intact. Laboratory Data: Sodium 142, potassium 3.8, chloride 108, CO2 of 30, BUN 19, creatinine 0.7, glucose 95, calcium 7.7. Assessment: A 64-year-old male with. 1. Acute bilateral pulmonary embolism, improved. We will continue with Lovenox. Patient is on room air. Echo reviewed. 2. Acute deep vein thrombosis of the left common femoral vein to popliteal vein, status post tPA, now on Lovenox. Patient still has significant amount of swelling, erythema, and some pain. Patient will require thrombectomy. We will continue to measure thigh and calf daily. Patient has increased diameter of 1 cm from yesterday. 3. Alcohol dependence. We will continue multivitamin. Continue to monitor for signs of withdrawal using CIWA protocol. Patient has not required Ativan significantly. 4. Chronic obstructive pulmonary disease. Continue with nebulizer treatments. Patient not requiring oxygen at this time. 5. Essential tremor. 6. First-degree atrioventricular block. 7. Deep venous thrombosis prophylaxis, currently on Lovenox. Plan: Case discussed with Dr. Bob. He recommends transfer to higher level of care for thrombectomy. I agree with his assessment. Calf has not shown significant decrease in swelling, in fact measurements show 1 cm worsening from yesterday. We will initiate transfer process. Family updated. SA/MODL Voice ID: [id number] Report ID: [id number] MTDSarah
--- NOTE | 2019-07-31 06:06 | DS ---
Date of Discharge: 07/30/2019 Consultants: Dr. Bob with pulmonology. Procedures: TPA for excessive DVT. Admitting Diagnoses: 1.Acute bilateral pulmonary embolus. 2.Acute deep vein thrombosis of the common femoral vein to popliteal vein. 3.Alcohol dependence. 4.Chronic obstructive pulmonary disease. 5.Essential tremor. 6.First-degree atrioventricular block. 7.Nicotine dependence with cigarette smoking, continuous. Discharge Diagnoses: 1.Acute bilateral pulmonary embolus. 2.Acute deep vein thrombosis of the left iliac, femoral, and popliteal vein. 3.Alcohol dependence. 4.Chronic obstructive pulmonary disease, chronic bronchitis. 5.Essential tremor. 6.First-degree atrioventricular block. 7.Nicotine dependence with cigarette smoking, counseled. Hospital Course: Patient is a 64-year-old male who was transferred from the ultrasound department ge tting outpatient Doppler study to the ER for extensive DVT. Patient was found to have extensive clot burden on the left lower extremity. CT angio was done, which was positive for small bilateral PEs. Echocardiogram was also done to rule out right ventricular strain. EF was 50% to 55%. There was no right ventricular strain found. Patient was seen by Pulmonology. He was started on Lovenox. Patie nt did have elevated white count, which improved. Troponin was negative. He was able to be weaned o ff oxygen due to his heavy clot burden and significant swelling, which has been ongoing for 1 month. The patient was taken to the ICU for tPA. Patient did tolerate the procedure well, however, still h ad significant swelling, which was worsening. Ultrasound was then repeated at this time to visualize the iliac veins and clot was found in the left common iliac and left external iliac veins, therefore transfer was initiated to [facility] for thrombectomy procedure. I spoke with vascular tyler geon, Dr. Mayes, who agreed with transfer due to the extensive clot burden and the location of the cl ot. Patient was accepted by Dr. Rutherford, hospitalist and was transferred in a stable condition. Physical Examination: For physical exam findings, please see progress note dictated on the day of discharge. Total time spent discharging patient was 47 minutes. /SAMIA Voice ID: [id number] Report ID: [id number]
== END 2019-07-30 18:33 | disposition short-term general hospital (02) | DRG 176 ==
LOC: ER 12:36 → ERHOLD 15:47 → 2ND 18:48 → 3RD-ICU 07-28 12:11 → 2ND 07-29 12:50
PROVIDERS: ADMIT Family Medicine; ATTEND Family Medicine
DX: I26.99 Other pulmonary embolism without acute cor pulmonale (principal); I82.422 Acute embolism and thrombosis of left iliac vein; I82.412 Acute embolism and thrombosis of left femoral vein; I82.432 Acute embolism and thrombosis of left popliteal vein; F10.20 Alcohol dependence, uncomplicated; J44.9 Chronic obstructive pulmonary disease, unspecified; G25.0 Essential tremor; I44.0 Atrioventricular block, first degree; E66.9 Obesity, unspecified; Z68.32 Body mass index [BMI] 32.0-32.9, adult; Z23 Encounter for immunization; F17.210 Nicotine dependence, cigarettes, uncomplicated
CPT/HCPCS: 36415; 71046; 71275; 80048; 80053; 80061; 80076; 83735; 83880; 84100; 84484; 85025; 85610; 85730; 90471; 90670; 93005; 93306; 93970; 93971; 94640; 94760; 96372; 97116; 97161; 97530; 99285; J1650; J2997; J3411; J7030; Q2035; Q9967

== ENCOUNTER 2024-01-03 22:40 | Inpatient (IN) | payer OTHER ==
[2024-01-03] MEDS ORDERED: NA CHLORIDE 0.9% 1,000 ML ONE (23:00)
[2024-01-03 23:34] LABS: Absolute Basophils 0.1 K/uL (0-0.5); Absolute Monocytes 1.2 K/uL (0.1-1.3); Absolute Neutrophil 6.3 K/uL (1.8-8.0); Basophils % 0.9 % (0-1.3); Eosinophils % 0.4 % (0-4.4); Hematocrit 22.2 % (39.6-49.0); Hemoglobin 7.6 g/dL (13.6-17.9); Lymphocytes % 21.1 % (15.3-44.8); MCHC 34.3 g/dL (32.0-36.0); MCV 93.2 fL (80-100); MPV 8.7 fL (7.6-11.3); Neutrophils % 65.6 % (41.7-73.7); Nucleated Red Blood Cells % 0.1 % (0-0); Platelets 283 thou/uL (152-406); RBC Red Blood Cell Count 2.38 M/uL (4.33-5.43); Red Cell Distribution Width 14.7 % (12.1-15.2)
[2024-01-04 00:06] LABS: PT Prothrombin Time 239.1 SECONDS (9.5-12.5); PTT, Activated Partial Thromb 75.4 SECONDS (24.3-36.9)
[2024-01-04 00:09] LABS: Protime INR 23.84
[2024-01-04 00:10] LABS: Albumin 2.8 g/dL (3.4-5.0); Albumin/Globulin Ratio 0.7 (1.1-1.8); Anion Gap 16.3 mEq/L (5.0-15.0); Bilirubin Total 0.3 mg/dL (0.2-1.0); Potassium 5.3 mEq/L (3.5-5.1); Protein, Total 6.8 g/dL (6.4-8.2)
[2024-01-04 00:20] LABS: Troponin High Sensitivity 67.2 pg/mL (<58.9)
--- NOTE | 2024-01-04 00:55 | EDPHYS ---
Physician Documentation [facility] Name: Madeleine Ordoñez Age: 68 yrs Sex: Male : 1955 Arrival Date: 01/03/2024 Time: 22:40 Bed 3 Private MD: ED Physician Lio Castañeda HPI: 01/02 23:09 This 68 yrs old Male presents to ER via Unassigned with complaints of confusion. rt 23:09 Patient presents to the ED with reported confusion. He had finished a treatment for UTI rt with antibiotics. Reports being thirsty, but denies acute complaints at this time to include abdominal pain. The patient denies any other acute complaints. Patient's sister reported that the patient was "spacing out." States that he was confused. He denies this. Symptoms are moderate in severity, no other aggravating relieving factors.. Historical: - Allergies: 23:15 No Known Allergies; tm6 - PSHx: 23:15 Stented artery; tm6 - Immunization history:: Adult Immunizations up to date, Client reports having NOT received the Covid vaccine. Flu vaccine is not up to date. - Social history:: Smoking status: Patient reports the use of cigarette tobacco products, smokes one-half pack cigarettes per day. ROS: 23:09 Constitutional: Negative for fever, chills, and weight loss, Cardiovascular: Negative rt for chest pain, palpitations, and edema, Respiratory: Negative for shortness of breath, cough, wheezing, and pleuritic chest pain, Abdomen/GI: Negative for abdominal pain, nausea, vomiting, diarrhea, and constipation, Skin: Negative for injury, rash, and discoloration, Psych: Negative for depression, anxiety, suicide ideation, homicidal ideation, and hallucinations, 23:09 Neuro: Positive for altered mental status, Negative for speech changes, Exam: 23:09 Constitutional: This is a well developed, well nourished patient who is awake, alert, rt and in no acute distress. Head/Face: Normocephalic, atraumatic. Chest/axilla: Normal chest wall appearance and motion. Nontender with no deformity. No lesions are appreciated. Cardiovascular: Regular rate and rhythm with a normal S1 and S2. No gallops, murmurs, or rubs. Normal PMI, no JVD. No pulse deficits. Respiratory: Lungs have equal breath sounds bilaterally, clear to auscultation and percussion. No rales, rhonchi or wheezes noted. No increased work of breathing, no retractions or nasal flaring. Abdomen/GI: Soft, non-tender, with normal bowel sounds. No distension or tympany. No guarding or rebound. No evidence of tenderness throughout. Skin: Warm, dry with normal turgor. Normal color with no rashes, no lesions, and no evidence of cellulitis. MS/ Extremity: Pulses equal, no cyanosis. Neurovascular intact. Full, normal range of motion. Neuro: Awake and alert, GCS 15, oriented to person, place, time, and situation. Cranial nerves II-XII grossly intact. Motor strength 5/5 in all extremities. Sensory grossly intact. Cerebellar exam normal. Normal gait. 23:09 ENT: Dry mucous membranes. 23:09 ECG was reviewed by the Attending Physician. Vital Signs: 23:11 BP 112 / 63; Pulse 98; Resp 18; Temp 97.3(TE); Pulse Ox 99% on R/A; Weight 81.65 kg; tm6 Height 5 ft. 11 in. ; Pain 0/10; 01/03 00:26 BP 118 / 64; Pulse 92; Resp 14; Pulse Ox 100% on R/A; Pain 0/10; tm6 03:10 BP 132 / 79; Pulse 98; Resp 14; Pulse Ox 100% on R/A; Pain 0/10; tm6 01/02 23:11 Body Mass Index 25.10 (81.65 kg, 180.34 cm) 6 01/02 23:11 Pain Scale: Adult tm6 01/03 00:26 Pain Scale: Adult tm6 03:10 Pain Scale: Adult tm6 MDM: 01/02 22:42 Patient medically screened. rt 01/03 01:24 Differential Diagnosis Renal failure, intracranial hemorrhage, supratherapeutic. Data rt reviewed: vital signs, nurses notes. Consideration of Admission/Observation Patient was admitted/placed on observation. Management of patient was discussed with the following: Hospitalist: Agrees to admit. I considered the following discharge prescriptions or medication management in the emergency department Medications were administered in the Emergency Department. See MAR. Independent interpretation of the following test(s) in the Emergency Department CT Scan: My interpretation is No intracranial hemorrhage seen interpretation of CT scan images. Care significantly affected by the following chronic conditions: Anticoagulation for DVT, PE. Counseling: I had a detailed discussion with the patient and/or guardian regarding the historical points, exam findings, and any diagnostic results supporting the discharge/admit diagnosis, lab results, radiology results, the need for further work-up and treatment in the hospital. 01/02 22:44 Order name: Blood Culture Adult (2) rt 01/02 22:44 Order name: CBC with Diff rt 01/02 22:44 Order name: CMP; Complete Time: 00:22 rt 01/02 22:44 Order name: Lactate w/ 2H reflex if indic.; Complete Time: 00:22 rt 01/02 22:44 Order name: Protime (+inr); Complete Time: 00:22 rt 01/02 22:44 Order name: Ptt, Activated; Complete Time: 00:22 rt 01/02 22:44 Order name: Urinalysis w/ reflexes rt 01/02 22:44 Order name: Troponin HS; Complete Time: 00:22 rt 01/03 00:09 Order name: Manual Differential EDMS 01/03 00:48 Order name: CMP; Complete Time: 01:32 rt 01/03 00:48 Order name: CBC with Diff; Complete Time: 01:32 rt 01/03 00:48 Order name: PT-INR rt 01/03 00:48 Order name: Troponin High Sensitivity; Complete Time: 01:32 rt 01/03 01:32 Order name: Type And Screen rt 01/03 01:40 Order name: Fresh Frozen Plasma EDMS 01/03 01:40 Order name: Packed RBC Leukored EDMS 01/03 01:47 Order name: CBC with Automated Diff EDMS 01/03 01:47 Order name: CBC with Automated Diff EDMS 01/03 01:47 Order name: CBC with Automated Diff EDMS 01/03 01:47 Order name: Comprehensive Metabolic Panel EDMS 01/03 01:47 Order name: Comprehensive Metabolic Panel EDMS 01/03 01:47 Order name: Comprehensive Metabolic Panel EDMS 01/03 01:47 Order name: Magnesium EDMS 01/03 01:47 Order name: Magnesium EDMS 01/03 01:47 Order name: Phosphorus EDMS 01/03 01:47 Order name: Phosphorus EDMS 01/03 01:47 Order name: Protime (+INR) EDMS 01/03 01:47 Order name: Protime (+INR) EDMS 01/03 01:47 Order name: Protime (+INR) EDMS 01/03 01:47 Order name: Protime (+INR) EDMS 01/03 01:51 Order name: Hematocrit EDMS 01/03 01:51 Order name: Hematocrit EDMS 01/03 01:51 Order name: Hematocrit EDMS 01/03 01:51 Order name: Hematocrit EDMS 01/03 01:51 Order name: Hemoglobin EDMS 01/03 01:51 Order name: Hemoglobin EDMS 01/03 01:51 Order name: Hemoglobin EDMS 01/03 01:51 Order name: Hemoglobin EDMS 01/03 01:51 Order name: Hemoglobin EDSC 01/03 02:20 Order name: ABO/RH no charge EDSC 01/02 22:44 Order name: Chest Single View XRAY rt 01/02 22:44 Order name: CT Head Brain wo Cont rt 01/02 22:44 Order name: EKG; Complete Time: 22:44 rt 01/02 22:44 Order name: Accucheck; Complete Time: 23:23 rt 01/02 22:44 Order name: Cardiac monitoring; Complete Time: 23:10 rt 01/02 22:44 Order name: EKG - Nurse/Tech; Complete Time: 23:10 rt 01/02 22:44 Order name: IV Saline Lock - Large Bore; Complete Time: 23:22 rt 01/02 22:44 Order name: Labs collected and sent; Complete Time: 23:22 rt 01/02 22:44 Order name: O2 Per Protocol; Complete Time: 23:11 rt 01/02 22:44 Order name: O2 Sat Monitoring; Complete Time: 23:11 rt 01/02 22:44 Order name: Vital Signs; Complete Time: 23:11 rt 01/02 22:44 Order name: IV Saline Lock; Complete Time: 23:22 rt EC/23 23:09 Rate is 98 beats/min. Rhythm is regular, Normal Sinus Rhythm with No ectopy. QRS [place] rt is Normal. OR interval is normal. QRS interval is normal. QT interval is normal. No Q waves. Clinical impression: NSR w/ Non-specific ST/T Changes. Administered Medications: 23: Drug: NS 0.9% IV 1000 ml IV at 1 bolus Per protocol; 1000 mL bolus Route: IV; Rate: 1 tm6 bolus; Site: left antecubital; 01/03 03:54 Follow up: IV Status: Completed infusion; IV Intake: 1000ml km8 01:29 Drug: Phytonadione IM 10 mg IM once Route: IM; Site: left deltoid; tm6 03:54 Follow up: Response: No adverse reaction km8 Disposition Summary: 01/04/24 00:54 Hospitalization Ordered Notes: Hospitalization Status: Inpatient Admission rt Provider: Dinh Self rt Location: Telemetry/[facility] (Inpatient) rt Condition: Guarded rt Problem: new rt Symptoms: are unchanged rt Bed/Room Type: Standard rt Room Assignment: 409(01/04/24 01:48) rv1 Diagnosis - Supratherapeutic INR rt - Acute renal failure rt Forms: - Medication Reconciliation Form rt - SBAR form rt - Leadership Thank You Letter rt Critical care time excluding procedures: 01:24 Critical care time: Bedside Care: 30 minutes, Consultation: 10 minutes. Total time: 40 rt minutes Signatures: Dispatcher [employer] Lio Ibanez MD MD rt Marivel Wu rv1 Romulo Arce RN RN tm6 Marcella Redmond RN km8 Corrections: (The following items were deleted from the chart) 01:48 00:54 rt rv1
--- NOTE | 2024-01-04 00:55 | ER ---
Nurse's Notes [facility] Name: Madeleine Ordoñez Age: 68 yrs Sex: Male : 1955 Arrival Date: 01/03/2024 Time: 22:40 Bed 3 Private MD: Diagnosis: Supratherapeutic INR;Acute renal failure Presentation: 01/02 23:11 Chief complaint: EMS states: family called, stating patient was disoriented and having tm6 diarrhea. Has had a UTI since Friday. Patient A\T\Ox4 for EMS. Coronavirus screen: Vaccine status: Patient reports being unvaccinated. Ebola Screen: Patient negative for fever greater than or equal to 101.5 degrees Fahrenheit, and additional compatible Ebola Virus Disease symptoms Patient denies exposure to infectious person. Patient denies travel to an Ebola-affected area in the 21 days before illness onset. No symptoms or risks identified at this time. Initial Sepsis Screen: Does the patient meet any 2 criteria? HR > 90 bpm. Does the patient have a suspected source of infection? No. Patient's initial sepsis screen is negative. Risk Assessment: Do you want to hurt yourself or someone else? Patient reports no desire to harm self or others. Onset of symptoms was January 03, 2024. Care prior to arrival: Medication(s) given: Normal saline infusion, 1000 mL. 23:11 Method Of Arrival: EMS: [facility] tm6 23:11 Acuity: SARA 3 tm6 Triage Assessment: 23:15 General: Appears in no apparent distress. unkempt, Behavior is calm, cooperative. Pain: tm6 Denies pain. EENT: No signs and/or symptoms were reported regarding the EENT system. Neuro: Level of Consciousness is awake, alert, obeys commands, Oriented to person, place, time, situation. Cardiovascular: Capillary refill < 3 seconds Patient's skin is warm and dry. Respiratory: Airway is patent Respiratory effort is even, unlabored, Respiratory pattern is regular, symmetrical. GI: Abdomen is flat, non-distended, Bowel sounds present X 4 quads. Abd is soft and non tender Reports diarrhea. : No signs and/or symptoms were reported regarding the genitourinary system. : No signs and/or symptoms were reported regarding the genitourinary system. Reports recent UTI. Derm: No signs and/or symptoms reported regarding the dermatologic system. Musculoskeletal: No signs and/or symptoms reported regarding the musculoskeletal system. Historical: - Allergies: 23:15 No Known Allergies; tm6 - PSHx: 23:15 Stented artery; tm6 - Immunization history:: Adult Immunizations up to date, Client reports having NOT received the Covid vaccine. Flu vaccine is not up to date. - Social history:: Smoking status: Patient reports the use of cigarette tobacco products, smokes one-half pack cigarettes per day. Screenin:20 [facility] ED Fall Risk Assessment (Adult) History of falling in the last 3 months, tm6 including since admission No falls in past 3 months (0 pts) Confusion or Disorientation No (0 pts) Intoxicated or Sedated No (0 pts) Impaired Gait No (0 pts) Mobility Assist Device Used No (0 pt) Altered Elimination Yes (1 pt) Score/Fall Risk Level 0 - 2 = Low Risk Oriented to surroundings, Maintained a safe environment. Abuse screen: Denies threats or abuse. Denies injuries from another. Nutritional screening: No deficits noted. Tuberculosis screening: No symptoms or risk factors identified. Assessment: 23:20 Reassessment: see triage assessment. tm6 01/03 00:26 Reassessment: Patient and/or family updated on plan of care and expected duration. Pain tm6 level reassessed. Patient is alert, oriented x 3, equal unlabored respirations, skin warm/dry/pink. 01:02 Reassessment: Roz (sister) updated [phone]. tm6 03:11 Reassessment: Patient and/or family updated on plan of care and expected duration. Pain tm6 level reassessed. Patient is alert, oriented x 3, equal unlabored respirations, skin warm/dry/pink. 04:05 Reassessment: Patient and/or family updated on plan of care and expected duration. Pain tm6 level reassessed. Patient is alert, oriented x 3, equal unlabored respirations, skin warm/dry/pink. Vital Signs: 01/02 23:11 BP 112 / 63; Pulse 98; Resp 18; Temp 97.3(TE); Pulse Ox 99% on R/A; Weight 81.65 kg; tm6 Height 5 ft. 11 in. ; Pain 0/10; 01/03 00:26 BP 118 / 64; Pulse 92; Resp 14; Pulse Ox 100% on R/A; Pain 0/10; tm6 03:10 BP 132 / 79; Pulse 98; Resp 14; Pulse Ox 100% on R/A; Pain 0/10; tm6 01/02 23:11 Body Mass Index 25.10 (81.65 kg, 180.34 cm) tm6 01/02 23:11 Pain Scale: Adult tm6 01/03 00:26 Pain Scale: Adult tm6 03:10 Pain Scale: Adult tm6 Vitals: 01/02 23:20 Cardiac Rhythm Assessment Regular Sinus rhythm. tm6 ED Course: 22:42 Patient arrived in ED. lg3 22:42 Lio Castañeda MD is Attending Physician. rt 22:57 Romulo Arce, RN is Primary Nurse. tm6 23:11 EKG done, by ED staff, reviewed by Lio Castañeda MD. tm6 23:15 Triage completed. tm6 23:15 Arm band placed on right wrist. EKG completed in triage. Results shown to MD. EKG tm6 completed in triage. Results shown to MD. 23:20 Patient has correct armband on for positive identification. Placed in gown. Bed in low tm6 position. Call light in reach. Side rails up X2. Provided Education on: plan of care. Client placed on continuous cardiac and pulse oximetry monitoring. NIBP monitoring applied. front desk monitor on. Pulse ox on. NIBP on. 23:[address] via stretcher. tm6 23:21 Inserted saline lock: 24 gauge in left wrist, using aseptic technique. Blood collected. ty 23:22 Troponin HS Sent. tm6 23:22 Blood Culture Adult (2) Sent. tm6 23:22 CBC with Diff Sent. tm6 23:22 CMP Sent. tm6 23:22 Lactate w/ 2H reflex if indic. Sent. tm6 23:22 Protime (+inr) Sent. tm6 23:22 Ptt, Activated Sent. tm6 23:22 Urinalysis w/ reflexes Sent. tm6 23:22 Noise minimized. Warm blanket given. Repositioned patient. Cleaned of incontinence. tm6 23:29 Chest Single View XRAY In Process Unspecified. EDMS 23:31 CT Head Brain wo Cont In Process Unspecified. EDMS 01/03 00:54 Dinh Self is Hospitalizing Provider. rt 01:00 Troponin High Sensitivity Sent. tm6 01:00 PT-INR Sent. tm6 01:00 CBC with Diff Sent. tm6 01:00 CMP Sent. tm6 03:53 Patient admitted, IV remains in place. km8 03:53 No provider procedures requiring assistance completed. km8 Administered Medications: 01/02 23:22 Drug: NS 0.9% IV 1000 ml IV at 1 bolus Per protocol; 1000 mL bolus Route: IV; Rate: 1 tm6 bolus; Site: left antecubital; 01/03 03:54 Follow up: IV Status: Completed infusion; IV Intake: 1000ml km8 01:29 Drug: Phytonadione IM 10 mg IM once Route: IM; Site: left deltoid; tm6 03:54 Follow up: Response: No adverse reaction km8 Medication: 01/02 23:20 VIS not applicable for this client. tm6 Intake: 01/03 03:54 IV: 1000ml; Total: 1000ml. km8 Outcome: 00:54 Decision to Hospitalize by Provider. rt 04:05 Admitted to Med/surg accompanied by nurse, via stretcher, room 409, with chart, Report tm6 called to faxed report to Mannie LOPEZ 04:05 Condition: stable 04:05 Instructed on the need for admit, 04:06 Patient left the ED. tm6 Signatures: Dispatcher [employer] EDMS Sharita Zamudio, RN RN lg3 Lio Castañeda MD MD rt Marcella Redmond RN RN km8 Romulo Arce RN RN tm6 Glenroy Bernal
[2024-01-04 01:13] LABS: Absolute Basophils 0.1 K/uL (0-0.5); Absolute Monocytes 1.1 K/uL (0.1-1.3); Absolute Neutrophil 5.9 K/uL (1.8-8.0); Basophils % 0.8 % (0-1.3); Eosinophils % 0.5 % (0-4.4); Hematocrit 17.7 % (39.6-49.0); Hemoglobin 6.1 g/dL (13.6-17.9); Lymphocytes % 22.1 % (15.3-44.8); MCH 32.4 pg (27.0-35.0); MCHC 34.3 g/dL (32.0-36.0); MCV 94.4 fL (80-100); MPV 8.2 fL (7.6-11.3); Monocytes % 11.6 % (3.3-12.3); Nucleated Red Blood Cells % 0.1 % (0-0); Platelets 232 thou/uL (152-406); RBC Red Blood Cell Count 1.88 M/uL (4.33-5.43); Red Cell Distribution Width 14.7 % (12.1-15.2)
[2024-01-04] MEDS ORDERED: VITAMIN K (ADULT) 10 MG/ML ONE (01:23)
[2024-01-04 01:30] LABS: ALT/SGPT < 10 U/L (16-61); AST/SGOT 16 U/L (15-37); Albumin 2.1 g/dL (3.4-5.0); Albumin/Globulin Ratio 0.7 (1.1-1.8); Alkaline Phosphatase 65 U/L (45-117); Anion Gap 16.6 mEq/L (5.0-15.0); BUN Blood Urea Nitrogen 125 mg/dL (7-18); Bicarbonate 21 mEq/L (21-32); Bilirubin Total 0.2 mg/dL (0.2-1.0); Globulin 3.1 g/dL (2.3-3.5); Glomerular Filtration Rate 4 ml/min (=/>90); Glucose Level 100 mg/dL (74-106); PT Prothrombin Time 268.5 SECONDS (9.5-12.5); Potassium 4.6 mEq/L (3.5-5.1); Protein, Total 5.2 g/dL (6.4-8.2); Sodium Level 148 mEq/L (136-145); Troponin High Sensitivity 58.8 pg/mL (<58.9)
[2024-01-04] MEDS ORDERED: ONDANSETRON 4 MG/2 ML VIAL IV PRN (01:33)
[2024-01-04] MEDS ORDERED: ALBUTEROL 2.5 MG/3 ML NEB SOL NEB PRN (01:33)
[2024-01-04 01:34] LABS: Protime INR 26.86
[2024-01-04 01:41] LABS: Band Neutrophils 5 % (0-1); Differential Total Cells Count 100; Eosinophils 1 % (0-3); Lymphocytes 22 % (15-42); Metamyelocytes 1 % (0-0); Monocytes 3 % (0-10); Myelocytes 1 % (0-0); Reactive Lymphocytes 6 %; Segmented Neutrophils 60 % (40-80)
[2024-01-04 01:42] LABS: Blood Morphology Comment NOT SEEN (NOT SEEN); Platelet Estimate ADEQ
--- NOTE | 2024-01-04 02:00 | P.HP ---
Certification for Inpatient Patient admitted to: Inpatient With expected LOS: >2 Midnights Practitioner: I am a practitioner with admitting privileges, knowledge of patient current condition, hospital course, and medical plan of care. Services: Services provided to patient in accordance with Admission requirements found in Title 42 Section 412.3 of the Code of Federal Regulations Patient History Date of Service: 01/04/24 Reason for admission: Bloody stools History of Present Illness: 68-year-old gentleman was brought to the emergency department by EMS due to diarrhea with bloody stools. Family also reported patient has had poor oral intake, not eating or drinking much. Patient is on Coumadin anticoagulation for DVT ad endovascular stent. No reported hematemesis. Blood work done in the emergency department demonstrated severely elevated INR, and severely elevated BUN and creatinine. Patient had a bout of bloody bowel movements in the ER. Head CT shows no acute intracranial bleed. Patient is hospitalized for further management. Allergies No Known Allergies Allergy (Verified 07/27/19 20:03) Home Medications: NK [No Home Meds] 07/27/19 - Past Medical/Surgical History Diabetic: No -: Essential tremor -: Hypertension - Family History Father -: Hypertension, Cancer Mother -: Hypertension - Social History Alcohol use: Yes Caffeine use: Yes Review of Systems Other: Patient denies any nausea or vomiting. He endorsed decreased oral intake. He denied any fever. He denied any shortness of breath or chest pain. Except as documented, all other systems reviewed and negative. Physical Examination - Studies Laboratory Data (last 24 hrs) 01/04/24 01/04/24 01/04/24 00:57 00:57 00:57 WBC 9.10 Hgb 6.1 L D Hct 17.7 L Plt Count 232 PT 268.5 H INR 26.86 H* APTT Sodium 148 H D Potassium 4.6 D BUN 125 H Creatinine 13.30 H Glucose 100 Total Bilirubin 0.2 AST 16 ALT < 10 L Alkaline Phosphatase 65 D 01/03/24 01/03/24 01/03/24 23:16 23:16 23:16 WBC 9.60 Hgb 7.6 L Hct 22.2 L Plt Count 283 PT 239.1 H INR 23.84 H* APTT 75.4 H Sodium 140 Potassium 5.3 H BUN 142 H Creatinine 16.00 H Glucose 116 H Total Bilirubin 0.3 AST 21 ALT 11 L Alkaline Phosphatase 84 Assessment and Plan - Problems (Diagnosis) (1) GI bleed Current Visit: Yes Status: Acute (2) Acute blood loss anemia Current Visit: Yes Status: Acute (3) Coagulopathy Current Visit: Yes Status: Acute (4) History of DVT (deep vein thrombosis) Current Visit: Yes Status: Acute (5) KRISTAL (acute kidney injury) Current Visit: Yes Status: Acute - Plan GI bleed Acute blood loss anemia Raised INR GI bleed likely secondary to raiseed INR 2 unit PRBC and 2 units FFP transfusion ordered by ED provider. Recheck INR in 12 to 24 hours. Transfuse as needed for any ongoing GI bleed until INR is corrected. Vitamin K administered in the ED. Monitor H&H every 6 hours. KRISTAL hypernatremia Hyperkalemia Likely prerenal Hyperkalemia corrected with IV hydration. Aggressively hydrate with IV fluid Monitor renal function Nephrology consult. History of DVT Hold Coumadin, hold all antiplatelet. DVT prophylaxis: Patient has supratherapeutic INR. - Advance Directives Does patient have a Living Will: No Does patient have a Durable POA for Healthcare: No
[2024-01-04] MEDS ORDERED: D5 0.45 NS 1,000 ML IV ONE (02:18)
[2024-01-04] MEDS ORDERED: NA CHLORIDE 0.9% 100 ML ONE (02:18)
[2024-01-04] MEDS ORDERED: CEFTRIAXONE 1000 MG/VIAL ONE (02:18)
[2024-01-04] MEDS: CEFTRIAXONE 1,000 MG in NA CHLORIDE 0.9% 50 ML IVPB SCH (02:47)
[2024-01-04] MEDS: NA CHLORIDE 0.9% 250 ML ONE ×3 (03:48→14:07)
[2024-01-04] MEDS: D5 0.45 NS 1,000 ML IV SCH (04:03)
[2024-01-04 06:51] VITALS: BMI 25.1
[2024-01-04 06:55] LABS: Hematocrit 16.8 % (39.6-49.0)
[2024-01-04 06:57] LABS: Hemoglobin 5.7 g/dL (13.6-17.9)
[2024-01-04] MEDS: IPRATROPIUM BROM 0.5MG/2.5ML NEB SCH (07:46)
[2024-01-04 09:49] LABS: Albumin 2.6 g/dL (3.4-5.0); Albumin/Globulin Ratio 0.8 (1.1-1.8); Anion Gap 13.3 mEq/L (5.0-15.0); Bilirubin Total 0.2 mg/dL (0.2-1.0); Globulin 3.3 g/dL (2.3-3.5); Potassium 5.3 mEq/L (3.5-5.1); Protein, Total 5.9 g/dL (6.4-8.2)
[2024-01-04 09:54] LABS: Absolute Basophils 0.1 K/uL (0-0.5); Absolute Eosinophils 0.1 K/uL (0-0.5); Absolute Lymphocytes (CBC) 2.5 K/uL (0.7-4.9); Absolute Monocytes 0.9 K/uL (0.1-1.3); Absolute Neutrophil 5.6 K/uL (1.8-8.0); Basophils % 0.8 % (0-1.3); Lymphocytes % 27.7 % (15.3-44.8); MCH 31.9 pg (27.0-35.0); MCHC 33.7 g/dL (32.0-36.0); MCV 94.5 fL (80-100); MPV 9.1 fL (7.6-11.3); Monocytes % 9.8 % (3.3-12.3); Neutrophils % 60.7 % (41.7-73.7); Platelets 211 thou/uL (152-406); RBC Red Blood Cell Count 1.77 M/uL (4.33-5.43); Red Cell Distribution Width 14.5 % (12.1-15.2)
[2024-01-04] MEDS: INFLUENZA VACCINE (for 6+ mo) 0.5 ML DOSE IMVAC ONE (14:48)
[2024-01-04] MEDS: PNEUMOCOCCAL VACCINE 0.5 ML IMVAC ONE (14:49)
[2024-01-04 15:04] LABS: Absolute Basophils 0.1 K/uL (0-0.5); Absolute Eosinophils 0.1 K/uL (0-0.5); Absolute Monocytes 1.2 K/uL (0.1-1.3); Absolute Neutrophil 5.5 K/uL (1.8-8.0); Basophils % 0.9 % (0-1.3); Eosinophils % 0.9 % (0-4.4); Hematocrit 16.9 % (39.6-49.0); Lymphocytes % 22.5 % (15.3-44.8); MCH 32.4 pg (27.0-35.0); MCHC 34.4 g/dL (32.0-36.0); MCV 94.1 fL (80-100); MPV 8.7 fL (7.6-11.3); Monocytes % 13.2 % (3.3-12.3); Neutrophils % 62.5 % (41.7-73.7); Platelets 199 thou/uL (152-406); RBC Red Blood Cell Count 1.79 M/uL (4.33-5.43); Red Cell Distribution Width 14.5 % (12.1-15.2)
[2024-01-04 15:09] LABS: PT Prothrombin Time 55.8 SECONDS (9.5-12.5); Protime INR 5.33
[2024-01-04 15:11] LABS: Hemoglobin 5.8 g/dL (13.6-17.9)
[2024-01-04 15:19] LABS: Anion Gap 12.4 mEq/L (5.0-15.0); Potassium 5.4 mEq/L (3.5-5.1)
[2024-01-04 19:52] LABS: Hematocrit 18.5 % (39.6-49.0); Hemoglobin 6.3 g/dL (13.6-17.9)
[2024-01-05] MEDS: NA CHLORIDE 0.9% 250 ML ONE ×3 (04:24→17:59)
[2024-01-05 06:44] LABS: Absolute Basophils 0.1 K/uL (0-0.5); Absolute Eosinophils 0.2 K/uL (0-0.5); Absolute Lymphocytes (CBC) 2.6 K/uL (0.7-4.9); Absolute Neutrophil 5.1 K/uL (1.8-8.0); Basophils % 0.8 % (0-1.3); Eosinophils % 2.5 % (0-4.4); Hemoglobin 6.2 g/dL (13.6-17.9); Lymphocytes % 28.5 % (15.3-44.8); MCH 31.8 pg (27.0-35.0); MCHC 34.6 g/dL (32.0-36.0); MCV 91.9 fL (80-100); MPV 8.5 fL (7.6-11.3); Monocytes % 11.1 % (3.3-12.3); Neutrophils % 57.1 % (41.7-73.7); Nucleated Red Blood Cells % 0.2 % (0-0); Platelets 178 thou/uL (152-406); RBC Red Blood Cell Count 1.96 M/uL (4.33-5.43); Red Cell Distribution Width 14.8 % (12.1-15.2)
[2024-01-05 06:49] LABS: PT Prothrombin Time 51.5 SECONDS (9.5-12.5); Protime INR 4.9
[2024-01-05 07:24] LABS: ALT/SGPT < 10 U/L (16-61); AST/SGOT 17 U/L (15-37); Albumin 2.4 g/dL (3.4-5.0); Albumin/Globulin Ratio 0.8 (1.1-1.8); Alkaline Phosphatase 60 U/L (45-117); Anion Gap 15.9 mEq/L (5.0-15.0); BUN Blood Urea Nitrogen 154 mg/dL (7-18); Bicarbonate 23 mEq/L (21-32); Bilirubin Total 0.2 mg/dL (0.2-1.0); Globulin 3.2 g/dL (2.3-3.5); Glomerular Filtration Rate 3 ml/min (=/>90); Glucose Level 96 mg/dL (74-106); Magnesium 2.4 mg/dL (1.6-2.4); Phosphorus 5.2 mg/dL (2.5-4.9); Potassium 4.9 mEq/L (3.5-5.1); Protein, Total 5.6 g/dL (6.4-8.2); Sodium Level 139 mEq/L (136-145)
[2024-01-05 09:44] LABS: Hematocrit 18.6 % (39.6-49.0); Hemoglobin 6.4 g/dL (13.6-17.9)
--- NOTE | 2024-01-05 12:31 | RAD REPORT ---
EXAM DESCRIPTION: CT of the head without contrast CLINICAL HISTORY: Ams COMPARISON: None available TECHNIQUE: Axial CT of the head obtained from the skull apex to the skull base without contrast. Thi s exam was performed according to our departmental dose-optimization program, which includes automate d exposure control, adjustment of the mA and/or kV according to patient size and/or use of iterative reconstruction technique. FINDINGS: No acute intracranial hemorrhage identified. No mass, mass effect, shift of the midline, a bnormal extra-axial fluid collection or CT evidence of acute ischemic change identified. The ventricu lar system and sulcal spaces are mildly enlarged compatible with mild cerebral atrophy. Scattered a reas of hypodensity throughout the supratentorial white matter are nonspecific and may be related to chronic small vessel ischemic change. The visualized paranasal sinuses and the mastoids are clear. No skull fracture identified. Visualiz ed orbits and globes are unremarkable. Atherosclerotic calcification of the intracranial internal car otid arteries. IMPRESSION: 1. No acute intracranial abnormality by CT criteria. Electronically signed by: Wolf Stack DO 01/03/2024 11:55 PM CDT M Due to temporary technical issues with the PACS/Fluency reporting system, reports are being signed by the in house radiologist without review as a courtesy to ensure prompt reporting. The interpreting r adiologist is fully responsible for the content of the report.
--- NOTE | 2024-01-05 12:34 | RAD REPORT ---
EXAM DESCRIPTION: Chest Single View CLINICAL HISTORY: Ams COMPARISON: None. FINDINGS: Single frontal radiograph view of the chest. Cardiomediastinal silhouette: Atherosclerotic calcification of thoracic aorta. Heart is not enlarged. Lungs: No consolidation, pneumothorax, or pleural effusion. Leads overlie the chest. Bones: No acute osseous abnormality. Degenerative change of the spine and shoulders. Upper abdomen: No abnormality identified. IMPRESSION: 1. No acute pulmonary process identified. Electronically signed by: Wolf Stack DO 01/03/2024 11:53 PM CDT M Due to temporary technical issues with the PACS/Fluency reporting system, reports are being signed by the in house radiologist without review as a courtesy to ensure prompt reporting. The interpreting r adiologist is fully responsible for the content of the report.
--- NOTE | 2024-01-05 14:18 | EKG ---
Test Date: 2024-01-03 Test Time: 22:52:48 Supervisor Tubing: [employer] MEASUREMENT RESULTS: Intervals: Rate: 98 CA: 196 QRSD: 104 QT: 362 QTc: 462 [place]: P: 56 CA: 196 QRS: 52 T: 68 INTERPRETIVE STATEMENTS: Normal sinus rhythm Possible Lateral infarct, age undetermined Cannot rule out Inferior infarct, age undetermined Abnormal ECG Compared to ECG 07/27/2019 12:58:44 Sinus tachycardia no longer present Atrial premature complex(es) no longer present First degree AV block no longer present Myocardial infarct finding still present Electronically Signed On 01-05-24 14:14:25 CDT by Horacio Harden
--- NOTE | 2024-01-05 18:17 | P.CNS ---
Date of Consult: 01/05/24 Reason for Consult: KRISTAL Requesting Physician: Serge Guerrero Chief Complaint: Bloody stools History of Present Illness: 68-year-old gentleman was brought to the emergency department by EMS due to diarrhea with bloody stools. Family also reported patient has had poor oral intake, not eating or drinking much. Patient is on Coumadin anticoagulation for DVT ad endovascular stent. No reported hematemesis. Blood work done in the emergency department demonstrated severely elevated INR, and severely elevated BUN and creatinine. Patient had a bout of bloody bowel movements in the ER. Head CT shows no acute intracranial bleed. Patient is hospitalized for further management. [id number] 23:09 This 68 yrs old Male presents to ER via Unassigned with complaints of confusion. rt 23:09 Patient presents to the ED with reported confusion. He had finished a treatment for UTI rt with antibiotics. Reports being thirsty, but denies acute complaints at this time to include abdominal pain. The patient denies any other acute complaints. Patient's sister reported that the patient was "spacing out." States that he was confused. He denies this. Symptoms are moderate in severity, no other aggravating relieving factors. The patient denies CKD and NSAIDs. The case was reviewed with his sister Roz [phone] Allergies No Known Allergies Allergy (Verified 07/27/19 20:03) Home medications list reviewed: Yes Home Medications: Warfarin Sodium [Coumadin] 3 mg PO DAILY 01/05/24 Warfarin Sodium [Coumadin] 5 mg PO DAILY 01/05/24 - Past Medical/Surgical History Diabetic: No -: Essential tremor -: Hypertension - Family History Father Medical History: Hypertension, Cancer Mother Medical History: Hypertension - Social History Smoking Status: Current every day smoker Alcohol use: Yes CD- Drugs: No Caffeine use: Yes Place of Residence: Home Review of Systems 10-point ROS is otherwise unremarkable General: Weakness Physical Examination Temp Pulse Resp BP Pulse Ox 97.8 F 84 14 127/61 100 01/05/24 16:00 01/05/24 16:00 01/05/24 16:00 01/05/24 16:00 01/05/24 16:00 General: In no apparent distress, Cooperative HEENT: Atraumatic Neck: Supple Respiratory: Normal air movement Cardiovascular: No edema, Regular rate/rhythm Gastrointestinal: Soft and benign, Non-distended Musculoskeletal: No clubbing, No contractures Integumentary: No cyanosis Neurological: Normal speech Blood work reviewed in the chart. Imagings Data: [id number] EXAM DESCRIPTION: Chest Single View CLINICAL HISTORY: Ams COMPARISON: None. FINDINGS: Single frontal radiograph view of the chest. Cardiomediastinal silhouette: Atherosclerotic calcification of thoracic aorta. Heart is not enlarged. Lungs: No consolidation, pneumothorax, or pleural effusion. Leads overlie the chest. Bones: No acute osseous abnormality. Degenerative change of the spine and shoulders. Upper abdomen: No abnormality identified. IMPRESSION: 1. No acute pulmonary process identified. [id number] EXAM DESCRIPTION: CT of the head without contrast CLINICAL HISTORY: Ams COMPARISON: None available TECHNIQUE: Axial CT of the head obtained from the skull apex to the skull base without contrast. This exam was performed according to our departmental dose- optimization program, which includes automated exposure control, adjustment of the mA and/or kV according to patient size and/or use of iterative reconstruction technique. FINDINGS: No acute intracranial hemorrhage identified. No mass, mass effect, shift of the midline, abnormal extra-axial fluid collection or CT evidence of ac itz ischemic change identified. The ventricular system and sulcal spaces are mildly enlarged compatible with mild cerebral atrophy. Scattered areas of hypodensity throughout the supratentorial white matter are nonspecific and may be related to chronic small vessel ischemic change. The visualized paranasal sinuses and the mastoids are clear. No skull fracture identified. Visualized orbits and globes are unremarkable. Atherosclerotic calcification of the intracranial internal carotid arteries. IMPRESSION: 1. No acute intracranial abnormality by CT criteria. Conclusions/Impression: Stage III KRISTAL likely ATN Underlying CKD unclear -No NSAIDs -Continue IVF -Will contact surgery regarding a tempory HD CVC if no improvement in the kidney function -Check hepatitis panel -Renal and Bladder US ordered -Consider moses if urinary retention Hypernatremia, improved Hyperkalemia, improved Hyperphosphatemia -NPO at this time HTN -Hold antihypertensives Hypoalbuminemia -Consider protein supplementation Anemia due to blood loss in the setting of an elevated INR -Transfuse PRBC prn -Hold coumadin Cigarette Smoker -Recommend cessation Hospitalist and ER notes reviewed Case reviewed with sister Roz by phone [phone] Thank you kindly for the consultation
--- NOTE | 2024-01-05 21:04 | RAD REPORT ---
EXAM DESCRIPTION: US - Renal Ultrasound-Complete - 01/05/2024 8:50 pm CLINICAL HISTORY: Acute renal insufficiency COMPARISON: None FINDINGS: The right kidney measures 10 cm with a normal echotexture. A 3.2 centimeter right renal cyst The left kidney measures 13 cm with a normal echotexture. Hydronephrosis is not seen. IMPRESSION: 3.2 centimeter right renal cyst
--- NOTE | 2024-01-05 21:06 | RAD REPORT ---
EXAM DESCRIPTION: US - Urinary Bladder - 01/05/2024 8:50 pm CLINICAL HISTORY: Acute renal insufficiency FINDINGS: Bladder volume 252 cc. Bladder wall normal thickness. The prostate gland is mildly enlarged and indents the base of the blad herrera. A bladder mass is not seen No ascites IMPRESSION: Mild prostatic enlargement. No bladder abnormality noted
[2024-01-06 00:40] LABS: Hematocrit 23.8 % (39.6-49.0)
[2024-01-06 03:40] LABS: UR PROTEIN 220.6 mg/dL (<11.9); Urine Protein/Creatinine Ratio 3.24 ratio (<0.15)
--- NOTE | 2024-01-06 04:37 | P.PN ---
Subjective Date of Service: 01/05/24 Spoke with sister at bedside. Patient had DVT of the lower extremity for which patient was taking Coumadin. Patient had been taking Coumadin for the last month, but patient had blood levels checked about a week ago. Patient was not told of abnormal labs. Patient had been feeling weak and was going to the restroom and apparently have bowel movement with blood everywhere. Patient was not able to make it to the restroom. The sister found patient lethargic with blood everywhere around the bathroom. EMS was called and patient was brought into the emergency room. Patient has never had any kidney problems that she is aware of. Patient lives with his sister and his brother in a house together. He is able to do most of his own activities of daily living. Patient's creatinine has not really improved. Initial thought was the patient was volume depleted with large amount of blood loss which cause the renal failure. However there has been no significant improvement at this time. Continue monitoring renal function and appreciate Nephrology input. Review of Systems 10-point ROS is otherwise unremarkable Physical Examination - Vital Signs Temperature: 97.2 F Blood Pressure: 117/59 Pulse: 71 Respirations: 19 Pulse Ox (%): 98 - Physical Exam General: Alert, In no apparent distress, Oriented x1, Confused HEENT: Atraumatic, PERRLA, EOMI Neck: Supple, JVD not distended Respiratory: Clear to auscultation bilaterally, Normal air movement Cardiovascular: Regular rate/rhythm, Normal S1 S2, No murmurs Gastrointestinal: Normal bowel sounds, Soft and benign, Non-distended, No tenderness Musculoskeletal: No clubbing, No tenderness, Swelling (left leg>right leg) Integumentary: No rashes Neurological: Sensation intact, Cranial nerves 3-12 intact - Studies Medications List Reviewed: Yes Assessment & Plan - Problems (Diagnosis) (1) KRISTAL (acute kidney injury) Current Visit: Yes Status: Acute (2) Acute blood loss anemia Current Visit: Yes Status: Acute (3) Coagulopathy Current Visit: Yes Status: Acute (4) GI bleed Current Visit: Yes Status: Acute (5) History of DVT (deep vein thrombosis) Current Visit: Yes Status: Acute - Plan 1. Patient with coagulopathy secondary to Coumadin toxicity. This has been reversed. Patient with GI bleeding. Patient on Protonix. GI consulted. No signs of active bleeding at this time. Most likely related to significant coagulopathy. 2. GI bleeding; patient's hemoglobin dropped substantially. Patient given 3 units of packed red blood cells. Repeat hemoglobin pending. No active bleeding at this time per nursing staff. H&H has been fairly stable. GI has been cons ulted but at this time monitoring patient's labs closely 3. Acute renal insufficiency; felt to be related to volume depletion from GI bleeding. Patient may have acute tubular necrosis and his renal function may still recover. Continue monitoring renal function closely and appreciate nephrology consultation. 4. history of DVT; venous Doppler is pending. 5. history of hypertension; continue with antihypertensives. Discharge Plan: Home Plan to discharge in: Greater than 2 days - Advance Directives Does patient have a Living Will: No Does patient have a Durable POA for Healthcare: No - Code Status/Comfort Care Code Status Assessed: Yes Code Status: Full Code Critical Care: No Time Spent Managing PTS Care (In Minutes): 35
[2024-01-06 05:15] LABS: MA/CREAT RATIO 242.9 (< 30.0)
[2024-01-06 05:44] LABS: Specific Gravity 1.012 (1.005-1.030); Sqamous Epithelial <5 /HPF (None Seen); Urine Bacteria <20 /HPF (<20); Urine Bilirubin NEGATIVE (Negative); Urine Blood 2+ (Negative); Urine Clarity Clear (Clear); Urine Color Colorless (Yellow); Urine Culture Reflex Order NOT NEEDED; Urine Glucose NEGATIVE (Negative); Urine Ketones NEGATIVE (Negative); Urine Micro Reflex YN NO BILL MICROSCOPIC; Urine Mucus Slight /HPF (None Seen); Urine Nitrite NEGATIVE (Negative); Urine Protein 1+ (Negative); Urine RBC 21-50 /HPF (None Seen); Urine Urobilinogen Normal (Normal); Urine pH 6.5 (5.0-7.0)
[2024-01-06 06:44] LABS: Absolute Basophils 0.1 K/uL (0-0.5); Absolute Eosinophils 0.2 K/uL (0-0.5); Absolute Monocytes 0.9 K/uL (0.1-1.3); Absolute Neutrophil 5.4 K/uL (1.8-8.0); Basophils % 0.8 % (0-1.3); Eosinophils % 2.2 % (0-4.4); Hematocrit 22.1 % (39.6-49.0); Hemoglobin 7.4 g/dL (13.6-17.9); Lymphocytes % 23.1 % (15.3-44.8); MCH 30.2 pg (27.0-35.0); MCHC 33.7 g/dL (32.0-36.0); MCV 89.6 fL (80-100); MPV 8.8 fL (7.6-11.3); Monocytes % 10.1 % (3.3-12.3); Neutrophils % 63.8 % (41.7-73.7); Platelets 153 thou/uL (152-406); RBC Red Blood Cell Count 2.46 M/uL (4.33-5.43); Red Cell Distribution Width 16.5 % (12.1-15.2)
[2024-01-06 06:45] LABS: PT Prothrombin Time 33.6 SECONDS (9.5-12.5); Protime INR 3.16
[2024-01-06] MEDS ORDERED: MANNITOL 25% 12.5 GM/50 ML VIAL IV PRN (07:27)
[2024-01-06] MEDS ORDERED: NA CHLORIDE 0.9% 1,000 ML IV PRN (07:27)
[2024-01-06 07:28] LABS: Albumin 2.4 g/dL (3.4-5.0); Albumin/Globulin Ratio 0.8 (1.1-1.8); Anion Gap 15.4 mEq/L (5.0-15.0); Bilirubin Total 0.3 mg/dL (0.2-1.0); Globulin 3.2 g/dL (2.3-3.5); Potassium 4.4 mEq/L (3.5-5.1); Protein, Total 5.6 g/dL (6.4-8.2); Uric Acid 10.8 mg/dL (3.5-7.2)
[2024-01-06] MEDS ORDERED: ALBUMIN HUMAN 25% 50 ML IV SCH (08:00)
--- NOTE | 2024-01-06 08:15 | RAD REPORT ---
EXAM DESCRIPTION: USExtrem Venous W Compress Bil01/06/2024 5:20 am CLINICAL HISTORY: Leg pain COMPARISON: none FINDINGS: The right common femoral, superficial femoral, greater saphenous, popliteal and posterior tibial veins are compressible and demonstrate augmentation. Doppler demonstrates good flow. Left common femoral and left posterior tibial veins are patent. Echogenic material is present within the left superficial femoral and left popliteal veins. Diminishe d blood flow present. Veins are diminished in compressibility. Grayscale, color and spectral analysis performed on all vessels IMPRESSION: Acute thrombus left superficial femoral and left popliteal veins
[2024-01-06 08:47] LABS: Hepatitis B Core Ab, Total Nonreactive (Nonreactive); Hepatitis B surface AG Interp. Nonreactive (Nonreactive); Hepatitis C Virus Ab Nonreactive (Nonreactive)
[2024-01-06 08:49] LABS: Hepatitis B Surface Ab - Quant < 3.10 mIU/mL (<8.0)
[2024-01-06 08:50] LABS: HBsAG Nonreactive Report Report
[2024-01-06] MEDS: NS 0.9% VIAL 0 ML ONE (09:07)
[2024-01-06] MEDS: BUPIVACAINE 0.5% PF 10 ML VIAL ONE (09:08)
[2024-01-06] MEDS: HEPARIN 5000 UNIT/ML 1 ML VIAL ONE (09:08)
[2024-01-06] MEDS: NA CHLORIDE 0.9% 0 ML ONE (09:09)
--- NOTE | 2024-01-06 09:53 | P.PN ---
Date of Service: 01/06/24 Subjective: No acute events overnight Denies blood per rectum/signs of GI bleeding ROS: 10 point ROS as noted above, otherwise negative Physical exam GEN: Alert, oriented, NAD HEENT: Normal conjunctiva, sclera anicteric CV: Regular rate and rhythm, no edema Pulm: Nonlabored respirations on room air ABD: Soft, nontender, nondistended MSK: No joint tenderness Integumentary: No rashes Neuro: Normal speech, normal affect Vitals reviewed Problem List Acute kidney injury Acute blood loss anemia secondary to lower GI bleed Supratherapeutic INR 3.16 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 History of hypertension History of COPD Plan Acute kidney injury No significant proved in renal function Nephrology planning for renal replacement therapy General surgery has been consulted for temporary dialysis catheter placement INR still elevated but downtrending, await further recommendations from general surgery/nephrology Acute blood loss anemia secondary to lower GI bleed Supratherapeutic INR Bleeding seems to have resolved INR 3.6 on 01/05 On Protonix Has received 5 units PRBC and 2 unit FFP GI consulted Repeat H/H around noon 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 Patient with history of extensive left lower extremity DVT and PE in [address] [facility] for evaluation for thrombectomy Reports he does have a stent placed to that leg, likely had thrombectomy and stent placement Venous ultrasound performed here shows DVT of left superficial femoral and left popliteal veins History of hypertension History of COPD Continue home meds VTE: Supratherapeutic INR still hold anticoagulation Code: Full Dispo: Greater than 3 days Time Spent Managing Pts Care (In Minutes): 35 <Chuy Sidhu - Last Filed: 01/06/24 09:53> Patient seen and examined on rounds this morning with DUMPSTER DRIVER Thea. I performed a substantial part of the MDM during this patient's care today as noted above in the plan of care. I agree with plan of care as noted above with the following additions / corrections: improving reports only had 1 bloody BM; but does seem to have some slight confusion multiple ecchymosis noted in extremities INR improving s/p FFP and PRBcs / vitamin k no improvement of renal function Dr. Vasquez recommends to start dialysis Dr. Dobson consulted for temporary HD catheter insertion - will hold off until tomorrow / once INR better will check this evening, goal for INR closer to [address] Dobson may require further FFP repeat H/H later today NPO after midnight <Pollo Pena - Last Filed: 01/06/24 21:41>
[2024-01-06 12:09] LABS: Hematocrit 22.8 % (39.6-49.0); Hemoglobin 7.6 g/dL (13.6-17.9)
[2024-01-06] MEDS: D5 0.45 NS 1,000 ML IV SCH (14:31)
[2024-01-06] MEDS ORDERED: ALBUTEROL 2.5 MG/3 ML NEB SOL NEB PRN (14:35)
[2024-01-06 20:38] LABS: PT Prothrombin Time 28.4 SECONDS (9.5-12.5); Protime INR 2.66
--- NOTE | 2024-01-06 21:56 | P.PN ---
Date of Service: 01/06/24 Vital Signs Temp Pulse Resp BP Pulse Ox 97.8 F 74 20 135/66 98 01/06/24 20:00 01/06/24 20:00 01/06/24 20:00 01/06/24 20:00 01/06/24 20:00 Medications Albuterol Sulfate (Albuterol 2.5 Mg/3 Ml Neb Cris) 2.5 mg NEB [id number] PRN PRN Reason: SHORTNESS OF BREATH Epoetin Octavio (Epoetin Octavio 10,000 Unit/Ml Vial) 10,000 unit IV EVERY HD [facility] Heparin Sodium (Porcine) (Heparin 1,000 Unit/Ml Vial) 6,000 unit IV EVERY HD PRN PRN Reason: AFTER EACH Sodium Chloride (Ns 1000 Ml Ivbag) 1,000 mls @ 0 mls/hr IV .Q0M PRN; Protocol PRN Reason: Priming and BP support at HD Stop: 01/06/24 23:59 Albumin Human (Albumin 25%) 50 mls @ 100 mls/hr IV EVERY HD [facility] Dextrose/Sodium Chloride (Dextrose 5% 0.45% Saline) 1,000 mls @ 55 mls/hr IV .[id number] [facility] Last Admin: 01/06/24 14:31 Dose: Not Given Ipratropium Shields (Ipratropium Brom 0.5mg/2.5ml) 0.5 mg NEB [id number] [facility] Last Admin: 01/06/24 19:55 Dose: 0.5 mg Mannitol (Mannitol 25% 12.5 Gm/50 Ml Vial) 12.5 gm IV EVERY HD PRN PRN Reason: Titrate to SBP (MUST DEFINE) Ondansetron HCl (Ondansetron 4 Mg/2 Ml Vial) 4 mg IV Q6HP PRN PRN Reason: NAUSEA / VOMITING Lab Results (last 24 hrs) 01/03/24 22:44: Urine Color Cancelled, Urine Clarity Cancelled, Urine pH Cancelled, Ur Specific [place] Cancelled, Glucose (UA)(Auto) Cancelled, Urine Ketones Cancelled, Urine Blood Cancelled, Urine Nitrite Cancelled, Urine Bilirubin Cancelled, Urine Urobilinogen Cancelled, Ur Leukocyte Esterase Canc elled, Urine RBC Cancelled, Urine Red Cell Clumps Cancelled, Urine WBC Cancelled, Urine WBC Clumps Cancelled, Ur Squamous Epith Cells Cancelled, U Non- Squamous Epi Cells Cancelled, Ur Transition Epith Cell Cancelled, Ur Renal Epithelial Cell Cancelled, Calcium Carbonate Cryst Cancelled, Calcium Oxalate Crystal Cancelled, Leucine Crystals Cancelled, Cystine Crystals Cancelled, Uric Acid Crystals Cancelled, Triple Phos Crystals Cancelled, Tyrosine Crystals Cancelled, Unidentified Crystals Cancelled, Amorphous Crystals Cancelled, Urine Bacteria Cancelled, Hyaline Casts Cancelled, Granular Casts Cancelled, Waxy Casts Cancelled, RBC Casts Cancelled, WBC Casts Cancelled, Urine Mucus Cancelled, Urine Trichomonas Cancelled, Ur Yeast w Hyphae Cancelled, Urine Yeast (Budding) Cancelled, Urine Sperm Cancelled, Ur Oval Fat Bodies Cancelled, Ur Microscopic Review Cancelled, Urine Culture Reflexed Cancelled, Urine Total Protein Cancelled, Urine Ascorbic Acid Cancelled, Urine Fat Cancelled Microbiology Results 01/03/24 23:32 Blood - Blood Aerobic Blood Culture - Preliminary No growth in 24 hours. 01/03/24 23:32 Blood - Blood Anaerobic Blood Culture - Preliminary No growth in 24 hours. 01/03/24 23:16 Blood - Blood Aerobic Blood Culture - Preliminary No growth in 24 hours. 01/03/24 23:16 Blood - Blood Anaerobic Blood Culture - Preliminary No growth in 24 hours. Assessment/ Plan: Nephrology No dyspnea No chest pain No acute events overnight Vitals, medications, blood work and imaging reviewed in the chart General: In no apparent distress, Cooperative HEENT: Atraumatic Neck: Supple Respiratory: Normal air movement Cardiovascular: No edema, Regular rate/rhythm Gastrointestinal: Soft and benign, Non-distended Musculoskeletal: No clubbing, No contractures Integumentary: No cyanosis Neurological: Normal speech Blood work reviewed in the chart. Imagings Data: [id number] EXAM DESCRIPTION: Chest Single View CLINICAL HISTORY: Ams COMPARISON: None. FINDINGS: Single frontal radiograph view of the chest. Cardiomediastinal silhouette: Atherosclerotic calcification of thoracic aorta. Heart is not enlarged. Lungs: No consolidation, pneumothorax, or pleural effusion. Leads overlie the chest. Bones: No acute osseous abnormality. Degenerative change of the spine and shoulders. Upper abdomen: No abnormality identified. IMPRESSION: 1. No acute pulmonary process identified. [id number] EXAM DESCRIPTION: CT of the head without contrast CLINICAL HISTORY: Ams COMPARISON: None available TECHNIQUE: Axial CT of the head obtained from the skull apex to the skull base without contrast. This exam was performed according to our departmental dose- optimization program, which includes automated exposure control, adjustment of the mA and/or kV according to patient size and/or use of iterative reconstruction technique. FINDINGS: No acute intracranial hemorrhage identified. No mass, mass effect, shift of the midline, abnormal extra-axial fluid collection or CT evidence of acute ischemic change identified. The ventricular system and sulcal spaces are mildly enlarged compatible with mild cerebral atrophy. Scattered areas of hypodensity throughout the supratentorial white matter are nonspecific and may be related to chronic small vessel ischemic change. The visualized paranasal sinuses and the mastoids are clear. No skull fracture identified. Visualized orbits and globes are unremarkable. Atherosclerotic calcification of the intracranial internal carotid arteries. IMPRESSION: 1. No acute intracranial abnormality by CT criteria. Conclusions/Impression: Stage III KRISTAL likely ATN CKD (Stage unclear) with Proteinuria -No NSAIDs -Continue IVF -Dr. Dobson to placed temporary HD CVC; HD ordered -Hepatitis panel negative -Renal and Bladder US reviewed -Consider moses if urinary retention Hypernatremia, improved Hyperkalemia, improved Hyperphosphatemia -NPO at this time HTN -Hold antihypertensives Hypoalbuminemia -Consider protein supplementation Anemia due to blood loss in the setting of an elevated INR -Transfuse PRBC prn -Hold coumadin Cigarette Smoker -Recommend cessation Case reviewed with Dr. Pena and Dr. Dobson Sister Roz [phone]
[2024-01-06] MEDS: NA CHLORIDE 0.9% 250 ML ONE (23:12)
[2024-01-07 03:03] LABS: PT Prothrombin Time 21.6 SECONDS (9.5-12.5)
--- NOTE | 2024-01-07 04:57 | P.PN ---
Date of Service: 01/07/24 No new changes. Patient's INR is at 2.0. Will have 1 unit of FFP fiscal economist to the OR.
[2024-01-07 06:21] LABS: Hematocrit 22.7 % (39.6-49.0); Hemoglobin 7.7 g/dL (13.6-17.9); MCH 30.4 pg (27.0-35.0); MCHC 34.1 g/dL (32.0-36.0); MCV 89.3 fL (80-100); MPV 8.4 fL (7.6-11.3); Platelets 185 thou/uL (152-406); RBC Red Blood Cell Count 2.55 M/uL (4.33-5.43); Red Cell Distribution Width 16.6 % (12.1-15.2)
[2024-01-07 06:36] LABS: Albumin 2.6 g/dL (3.4-5.0); Anion Gap 14.3 mEq/L (5.0-15.0); Phosphorus 6.2 mg/dL (2.5-4.9); Potassium 4.3 mEq/L (3.5-5.1)
[2024-01-07] MEDS: NA CHLORIDE 0.9% 100 ML ONE (07:02)
[2024-01-07] MEDS: BUPIVACAINE 0.5% PF 10 ML VIAL ONE (07:02)
[2024-01-07] MEDS ORDERED: Phenylephrine HCl 10 MG/ML 1 ML VIAL ONE (07:04)
[2024-01-07] MEDS ORDERED: propofoL 200 MG/20 ML VIAL IV ONE ×2 (07:04→08:17)
[2024-01-07] MEDS ORDERED: NS 0.9% VIAL 10 ML ONE ×2 (07:04→07:41)
[2024-01-07] MEDS ORDERED: EPHEDRINE SULF 50 MG/ML VIAL ONE (07:04)
[2024-01-07] MEDS ORDERED: LIDOCAINE 2% MPF 5 ML VIAL ONE (07:04)
--- NOTE | 2024-01-07 07:05 | ECHO ---
HEIGHT: 5 ft 11 in WEIGHT: 190 lb 9.6 oz DATE OF STUDY: 01/06/[address]: Serge Guerrero MD 2-DIMENSIONAL: YES M.MODE: YES DOPPLER: YES COLOR FLOW: YES TDS: PORTABLE: YES DEFINITY: BUBBLE STUDY: DIAGNOSIS: HYPOKINESIS/ ACUTE KINDEY INJURY CARDIAC HISTORY: CATHERIZATION: NO SURGERY: NO PROSTHETIC VALVE: NO PACEMAKER: NO MEASUREMENTS (cm) DIASTOLIC (NORMALS) SYSTOLIC (NORMALS) IVSd 1.5 (0.6-1.2) LA Diam 2.8 (1.9-4.0) LVEF 57% LVIDd 4.2 (3.5-5.7) LVIDs 2.9 (2.0-3.5) %FS 30% LVPWd 1.4 (0.6-1.2) Ao Diam 3.2 (2.0-3.7) 2 DIMENSIONAL ASSESSMENT: RIGHT ATRIUM: NORMAL LEFT ATRIUM: NORMAL RIGHT VENTRICLE: NORMAL LEFT VENTRICLE: LEFT VENTRICULAR HYPERTROPHY TRICUSPID VALVE: NORMAL MITRAL VALVE: MILD MITRAL REGURGITATION PULMONIC VALVE: NORMAL AORTIC VALVE: THICKENED, NO AORTIC STENOSIS PERICARDIAL EFFUSION: NONE AORTIC ROOT: NORMAL LEFT VENTRICULAR WALL MOTION: NORMAL DOPPLER/COLOR FLOW: SEE BELOW COMMENTS: 1. NORMAL LEFT VENTRICULAR EJECTION FRACTION 60-65% WITH NORMAL WALL MOTION 2. MODERATE CONCENTRIC LEFT VENTRICULAR HYPERTROPHY 3. MILD MITRAL REGURGITATION TECHNOLOGIST: LOREN MUÑOZ
[2024-01-07] MEDS: NA CHLORIDE 0.9% 500 ML ONE (07:30)
[2024-01-07] MEDS: DEXMEDETOMIDINE HCL 200 MCG/2 ML VIAL ONE (07:35)
[2024-01-07] MEDS: CEFAZOLIN SODIUM 1 GM/VIAL ONE (07:38)
[2024-01-07] MEDS: HEPARIN 5000 UNIT/ML 1 ML VIAL ONE (08:29)
--- NOTE | 2024-01-07 08:34 | P.BOP ---
Preoperative diagnosis: REnal failure, coagulopathy Postoperative diagnosis: same Primary procedure: 1. Placement of hemosplit hemodialysis catheter Secondary procedure: 2. Interpretation of fluoroscopy Other procedure(s): 3. Right neck ultrasound Estimated blood loss: <2cc Specimen: none Findings: compressible IJV Anesthesia: MAC Complications: None Implants: hemosplit R IJV Transferred to: Recovery Room Condition: Good
--- NOTE | 2024-01-07 08:54 | RAD REPORT ---
EXAM DESCRIPTION: RAD - Fluoroscopy <1 Hour - 01/07/2024 8:36 am CLINICAL HISTORY: DIALYSIS CATH COMPARISON: None available. FINDINGS: Six Images were sent to PACS, documenting fluoroscopy use during dialysis catheter inserti on. No radiologist was available for the procedure, nor will any image interpretation he provided. Pl ease refer to the procedural report for additional details. Fluoroscopy time: 0.3 Minutes. IMPRESSION: Documentation of fluoroscopy utilization as above.
--- NOTE | 2024-01-07 09:15 | RAD REPORT ---
EXAM DESCRIPTION: RADChest Single View01/07/2024 8:58 am CLINICAL HISTORY: s/p hemosplit cath COMPARISON: Chest Single View dated 01/03/2024; Chest Pa And Lat (2 Views) dated 07/27/2019 TECHNIQUE: Portable AP view of the chest. FINDINGS: Staggered right IJ hemodialysis catheter has been placed, with catheter tip projecting at the mid to distal SVC. Mild diffuse interstitial prominence. No focal consolidation. No pneumothorax or effusion. The cardiomediastinal contours are unremarkable. IMPRESSION: Satisfactory positioning of the right IJ hemodialysis catheter. Mild diffuse interstitial prominence, may reflect mild central congestion.
--- NOTE | 2024-01-07 11:50 | CON ---
Date of Consultation: 01/06/2024 Reason For Service: Placement of hemodialysis catheter. History Of Present Illness: This is a case of a 68-year-old patient admitted to the hospital with GI bleed. He was found to be hypotensive from there as he is being few days of trying to correct not o nly the anemia, but also the INR of 14. Apparently, this patient is being on Coumadin as an outpatie nt, but obviously something is not right when the INR is supposed to be 2 and is 14. Now unfortunate ly, the reason he was taking Coumadin is because he has history of DVTs and also endovascular stents, which means that have to be continue, but added to that is the person is developing renal insufficie ncy and they want a hemodialysis catheter to put as soon as possible, today if possible. So, I saw t he patient right away. I discussed this case this morning with Dr. Vasquez, who kindly gave me a alex ne call to discuss with him the findings. I cannot get much information from the patient even though he is not combative, he is not cooperative. He is taking his mass off. He seems to follow my comma nds, but immediately forgets, so he just do whatever he wants to means. It is difficult to do a hard long catheter on the neck of somebody with that condition, so that triggers may have to have some ki nd of sedation, so we look at discharge completely and notified the OR. Allergies: NONE. Medications: Coumadin. Surgical History: Hypertension. Once again, DVTs on Coumadin, but that is part of the story is not clear to me at this moment I cannot get from the patient. Social History: Unknown. Review of Systems: Mostly unable to be obtained. Physical Examination: General: Patient is awake, alert. HEENT: Pupils are equal, reactive. Anicteric. Neck: Supple, large mora. Chest: Bilateral breath sounds. Abdomen: Soft and depressible. Extremities: Good capillary refill. No Homans signs. Bruises all everywhere. Neuro: As above. He follow commands partially, but then forget and start to remove things. He adri ot stay still for this procedure to be done at bedside. Laboratory Data: Blood work shows a hemoglobin come with 6.6, now is 7.4; platelets of 153. INR as high as 23.8, today still over 3. Chemistry shows potassium 4.4. His creatinine has been climbing u p in the last 3 days, it has been 16 creatinine with a BUN 148 to 150. Potassium is 4.4. Venous Dop pler interpreted by Dr. Montgomery 01/06/2024 that says earliest this morning shows acute thrombosis in the left superficial femoral and left popliteal veins. The right common femoral, right superficial f emoral are compressible. Assessment: A 68-year-old patient with multiple problems. He has a GI bleed, multiple ecchymosis, I NR of 14, is still over 3 today. He need to be anticoagulated, but at the same time, he need the cat heter. First of all at bedside it is almost impossible he can move. He does not follow a ll the commands and I believe it is unsafe, so we have to bring the patient then to gave him some sed ation and will be safer to be done in a controlled setting like the operating room. At that moment, we also have to deal with the patient to have to be anticoagulated for his DVTs. Apparently he has h istory of DVTs before, so I am not sure exactly how much of those that leg DVTs all new, but at the s mansoor time, a Abilio or Mahurkar catheter with an INR over 3 and sometimes 14 like we see before, may be not the best choice because at least a non-tunneled catheter may lead more into exsanguination and tunneled catheter since it is more flexible and you can accommodate that in the upper chest, even th ough I inserted in neck, so I discussed the HemoSplit versus Mahurkar and discussed that with the cortez al service either way we believe it could be safer may be better because of his anticoagul ation and because of his inability to to put a more flexible catheter in that region since we going to go under anesthesia anyway that is a possibility that opened. I need INR to be a little bit more control, so we have a plan with me and Dr. Pena morning how we going to trying to bring this INR down, but at the same time be able to reverse that as soon as we finished the proce dure because he has acute DVTs. today. He has a renal diet, but we asked him to be n.p.o . since the plan changed at this moment. So, we have this booked for 7:30 tomorrow morning and we abdullahi ve a plan about the next few hours how to do reverse of that INR slowly and we have some parameters t hat we believe we are , even though they are not normal and in that case, at least below 2 give us a better idea may be limited at this moment, although at least we have the right fe moral open, we are going to trying to see if we can go on the neck or the chest. Once again, INR is important in those case since pressure on those regions are little bit more limit. Understanding all this, we are going to proceed forward. The benefits, alternatives, and risks of HemoSplit hemodialy sis catheter fully explained, which include, but not limited to infection, bleeding, damage to adjace nt structures, anesthesia complication, hemothorax, pneumothorax, pericardiac tamponade, PE, DVTs, br eaking of the catheters, endocarditis, pericarditis, [place] even . HM/MODL Voice ID: [id number] Report ID: [id number]
--- NOTE | 2024-01-07 12:09 | P.PN ---
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 History of hypertension History of COPD Plan Acute kidney injury No significant proved in renal function Temporary dialysis catheter placed right IJ 01/06 Plan to initiate hemodialysis 01/06-nephrology planning 3 days back to back Avoid NSAIDs, IV contrast Monitor renal function daily Acute blood loss anemia secondary to lower GI bleed Supratherapeutic INR Bleeding seems to have resolved INR 2.0 01/06 Has received 5 units PRBC and 2 unit FFP GI consulted Monitor H&H Patient with DVT-will need to initiate anticoagulation Plan on starting heparin drip tonight 01/06 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
[2024-01-07] MEDS: EPOETIN ALFA 10,000 UNIT/ML VIAL IV SCH (15:00)
[2024-01-07] MEDS: HEPARIN/D5W 25,000 UNIT/500 ML BAG IV SCH (20:52)
--- NOTE | 2024-01-07 21:55 | P.PN ---
Date of Service: 01/07/24 Vital Signs Temp Pulse Resp BP Pulse Ox 98.3 F 97 H 19 150/69 H 96 01/07/24 20:00 01/07/24 20:00 01/07/24 20:00 01/07/24 20:00 01/07/24 20:00 Medications Albuterol Sulfate (Albuterol 2.5 Mg/3 Ml Neb Cris) 2.5 mg NEB [id number] PRN PRN Reason: SHORTNESS OF BREATH Epoetin Octavio (Epoetin Octavio 10,000 Unit/Ml Vial) 10,000 unit IV EVERY HD [facility], [facility] Last Admin: 01/07/24 15:00 Dose: 10,000 unit Heparin Sodium (Porcine) (Heparin 1,000 Unit/Ml Vial) 6,000 unit IV EVERY HD PRN PRN Reason: AFTER EACH Last Admin: 01/07/24 15:46 Dose: 6,000 unit Heparin Sodium (Porcine) (Heparin 1,000 Unit/Ml Vial) 0 unit IV PRN PRN PRN Reason: Heparin Re-Bolus Per Protocol Albumin Human (Albumin 25%) 50 mls @ 100 mls/hr IV EVERY HD CHIQUIS Dextrose/Sodium Chloride (Dextrose 5% 0.45% Saline) 1,000 mls @ 55 mls/hr IV .[id number] [facility] Last Admin: 01/07/24 00:02 Dose: 1,000 mls Heparin Sodium/Dextrose (Heparin Drip 25,000 Units/5oo Ml Premix) 25,000 unit in 500 mls @ 0 mls/hr IV UD [facility]; Protocol Last Admin: 01/07/24 20:52 Dose: 500 mls Ipratropium [place] (Ipratropium Brom 0.5mg/2.5ml) 0.5 mg NEB [id number] [facility] Last Admin: 01/07/24 20:50 Dose: 0.5 mg Mannitol (Mannitol 25% 12.5 Gm/50 Ml Vial) 12.5 gm IV EVERY HD PRN PRN Reason: Titrate to SBP (MUST DEFINE) Ondansetron HCl (Ondansetron 4 Mg/2 Ml Vial) 4 mg IV Q6HP PRN PRN Reason: NAUSEA / VOMITING Microbiology Results 01/03/24 23:32 Blood - Blood Aerobic Blood Culture - Preliminary No growth in 24 hours. 01/03/24 23:32 Blood - Blood Anaerobic Blood Culture - Preliminary No growth in 24 hours. 01/03/24 23:16 Blood - Blood Aerobic Blood Culture - Preliminary No growth in 24 hours. 01/03/24 23:16 Blood - Blood Anaerobic Blood Culture - Preliminary No growth in 24 hours. Assessment/ Plan: Nephrology No dyspnea No chest pain No acute events overnight Sister Roz [phone] Vitals, medications, blood work and imaging reviewed in the chart General: In no apparent distress, Cooperative HEENT: Atraumatic Neck: Supple Respiratory: Normal air movement Cardiovascular: No edema, Regular rate/rhythm Gastrointestinal: Soft and benign, Non-distended Musculoskeletal: No clubbing, No contractures Integumentary: No cyanosis. Multiple ecchymoses Neurological: Normal speech Blood work reviewed in the chart. Imagings Data: [id number] EXAM DESCRIPTION: Chest Single View CLINICAL HISTORY: Ams COMPARISON: None. FINDINGS: Single frontal radiograph view of the chest. Cardiomediastinal silhouette: Atherosclerotic calcification of thoracic aorta. Heart is not enlarged. Lungs: No consolidation, pneumothorax, or pleural effusion. Leads overlie the chest. Bones: No acute osseous abnormality. Degenerative change of the spine and shoulders. Upper abdomen: No abnormality identified. IMPRESSION: 1. No acute pulmonary process identified. [id number] EXAM DESCRIPTION: CT of the head without contrast CLINICAL HISTORY: Ams COMPARISON: None available TECHNIQUE: Axial CT of the head obtained from the skull apex to the skull base without contrast. This exam was performed according to our departmental dose- optimization program, which includes automated exposure control, adjustment of t he mA and/or kV according to patient size and/or use of iterative reconstruction technique. FINDINGS: No acute intracranial hemorrhage identified. No mass, mass effect, shift of the midline, abnormal extra-axial fluid collection or CT evidence of acute ischemic change identified. The ventricular system and sulcal spaces are mildly enlarged compatible with mild cerebral atrophy. Scattered areas of hypodensity throughout the supratentorial white matter are nonspecific and may be related to chronic small vessel ischemic change. The visualized paranasal sinuses and the mastoids are clear. No skull fracture identified. Visualized orbits and globes are unremarkable. Atherosclerotic calcification of the intracranial internal carotid arteries. IMPRESSION: 1. No acute intracranial abnormality by CT criteria. Conclusions/Impression: Stage III KRISTAL likely ATN CKD (Stage unclear) with Proteinuria -No NSAIDs -Continue IVF -Dr. Dobson placed temporary HD CVC; HD daily -Hepatitis panel negative -Renal and Bladder US reviewed -Consider moses if urinary retention Hypernatremia, improved Hyperkalemia, improved Hyperphosphatemia -NPO at this time HTN -Hold antihypertensives Hypoalbuminemia -Consider protein supplementation Anemia due to blood loss in the setting of an elevated INR -Transfuse PRBC prn -Retacrit qHD Cigarette Smoker -Recommend cessation Case reviewed with Dr. Pena
--- NOTE | 2024-01-08 03:06 | OP ---
Date of Procedure: 01/07/2024 Surgeon: Tyrone Dobson MD Preoperative Diagnosis: Renal failure, coagulopathy. Postoperative Diagnosis: Renal failure, coagulopathy. Procedures: 1.Placement of a HemoSplit hemodialysis catheter. 2.Interpretation of fluoroscopy. 3.Right neck ultrasound. Estimated Blood Loss: Less than 2 mL. Specimens: None. Findings: Compressible internal jugular vein. Anesthesia: MAC plus local. Implant: HemoSplit tunneled hemodialysis catheter. Indication: This is the case of a 68-year-old patient, who came with multiple problems. As part of the process, I discussed the case with Dr. Vasquez we have to give dialysis, so they asked me for a c atheter. We discussed the tunnel versus non-tunnel pros and cons. At the end, we decided that a Hem oSplit tunneled hemodialysis catheter was the best for his condition with benefits, alternatives, and risks fully explained to the patient and the family, which include, but not limited to infection, bl eeding, damage to adjacent structures, anesthesia complication, DVTs, PEs, endocarditis, pericardiac tamponade, TN and even . He also understands this may not relieve symptoms, he might need more than one surgical intervention. He also understands this is a temporary catheter, as soon as it is n ot in use we should remove it and if he is going to continue a hemodialysis in the future, he should be sent to [place] for placement of a peripheral access and then remove the catheter, which was place d in. He understood also the chance of pneumothorax. He signed a consent. With particular attentio n, this patient who was on Coumadin comes with an INR of 14, we were able to bring that INR to 2, but at the same time he has acute DVT on the left side, so we did the case with anticoagulation, althoug h not as severe as 14, just to make sure that we also keep him protected from his DVTs. As an altern ative, we have fresh-frozen plasma in case this morning we could not bring the INR down, but we did n ot have to use it. Description Of Procedure: The patient was brought to the operating room, placed in supine position. Anesthesia was without complication. Right neck and chest was prepped and draped in usual sterile f ashion. A time-out was called. After that, we did a right neck ultrasound, we identified internal j ugular vein that looked compressible and with the help of Trendelenburg position and an 18-gauge need le, we cannulate the right internal jugular vein at the first attempt and passed a guidewire through it and guided into the superior vena cava using fluoroscopy. Needle was removed. Catheter was intro duced through the right upper chest, a tunnel underneath the skin to meet that new incision in the [facility] neck region. Serial dilators were placed under the help of fluoroscopy including an introducer s heet. Then, the guidewire was removed. Catheter was placed through the introducer sheath and the in troducer sheath was peeled off. This was done under fluoroscopy. Excellent backflow and inflow. 3- 0 chromic was used to close the subcutaneous tissue and the 3-0 nylon to fix the catheter to the skin . No bleeding. No hematomas. The patient was brought back to normal position from Trendelenburg, c overed with sterile dressings. The patient was sent to the recovery in stable condition and chest x- ray, which will be ordered STAT, and he will be going back to the floor. FAY/SAMIA Voice ID: [id number] Report ID: [id number]
[2024-01-08 05:09] LABS: Hematocrit 21.4 % (39.6-49.0); Hemoglobin 7.4 g/dL (13.6-17.9); MCH 30.7 pg (27.0-35.0); MCHC 34.6 g/dL (32.0-36.0); MCV 88.9 fL (80-100); MPV 8.4 fL (7.6-11.3); Platelets 197 thou/uL (152-406); RBC Red Blood Cell Count 2.41 M/uL (4.33-5.43); Red Cell Distribution Width 16.4 % (12.1-15.2)
[2024-01-08 05:14] LABS: PT Prothrombin Time 18.5 SECONDS (9.5-12.5); Protime INR 1.71
[2024-01-08 05:35] LABS: Albumin 2.6 g/dL (3.4-5.0); Anion Gap 11.1 mEq/L (5.0-15.0); Phosphorus 4.8 mg/dL (2.5-4.9); Potassium 4.1 mEq/L (3.5-5.1)
--- NOTE | 2024-01-08 13:06 | P.PN ---
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 History of hypertension History of COPD Plan Acute kidney injury No significant proved in renal function Temporary dialysis catheter placed right IJ 01/06 Had first session of dialysis 01/06-plan for 3 total consecutive days of dialysis Avoid NSAIDs, IV contrast Monitor renal function daily PT consulted Acute blood loss anemia secondary to lower GI bleed Supratherapeutic INR Bleeding seems to have resolved Has received 5 units PRBC and 2 unit FFP GI consulted Monitor H&H Was started on heparin drip 01/06 which is ongoing Discussed with GI, likely will transition to oral anticoagulant in the next day or so 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 Patient with history of extensive left lower extremity DVT and PE in 2018 Was transferred to [facility] for evaluation for thrombectomy Reports he does have a stent placed to that leg, likely had thrombectomy and stent placement Venous ultrasound performed here shows DVT of left superficial femoral and left popliteal veins Heparin drip started 01/06 evening History of hypertension History of COPD Continue home meds VTE: Heparin drip Code: Full Dispo: Greater than 3 days Time Spent Managing Pts Care (In Minutes): 35
--- NOTE | 2024-01-08 17:21 | PN ---
Date of Progress Note: 01/08/2024 Diagnosis: Status post hemodialysis catheter. Subjective: Patient is doing well. No complaint. Objective: Neck: Supple. Intact catheter. No active bleeding. Chest: Bilateral breath sounds. Plan: Follow up p.r.n., when ready to remove the catheter. FAY/SAMIA Voice ID: [id number] Report ID: [id number]
--- NOTE | 2024-01-08 21:02 | P.PN ---
Date of Service: 01/08/24 Vital Signs Temp Pulse Resp BP Pulse Ox 97.8 F 99 H 20 131/68 97 01/08/24 16:00 01/08/24 16:00 01/08/24 16:00 01/08/24 16:00 01/08/24 16:00 Medications Albuterol Sulfate (Albuterol 2.5 Mg/3 Ml Neb Cris) 2.5 mg NEB [id number] PRN PRN Reason: SHORTNESS OF BREATH Epoetin Octavio (Epoetin Octavio 10,000 Unit/Ml Vial) 10,000 unit IV EVERY HD [facility] Last Admin: 01/08/24 13:00 Dose: 10,000 unit Heparin Sodium (Porcine) (Heparin 1,000 Unit/Ml Vial) 6,000 unit IV EVERY HD PRN PRN Reason: AFTER EACH Last Admin: 01/08/24 13:17 Dose: 6,000 unit Heparin Sodium (Porcine) (Heparin 1,000 Unit/Ml Vial) 0 unit IV PRN PRN PRN Reason: Heparin Re-Bolus Per Protocol Albumin Human (Albumin 25%) 50 mls @ 100 mls/hr IV EVERY HD CHIQUIS Dextrose/Sodium Chloride (Dextrose 5% 0.45% Saline) 1,000 mls @ 55 mls/hr IV .[id number] [facility] Last Admin: 01/08/24 07:59 Dose: 1,000 mls Heparin Sodium/Dextrose (Heparin Drip 25,000 Units/5oo Ml Premix) 25,000 unit in 500 mls @ 0 mls/hr IV UD [facility]; Protocol Last Admin: 01/08/24 13:45 Dose: 500 mls Ipratropium [place] (Ipratropium Brom 0.5mg/2.5ml) 0.5 mg NEB [id number] [facility] Last Admin: 01/08/24 20:36 Dose: 0.5 mg Mannitol (Mannitol 25% 12.5 Gm/50 Ml Vial) 12.5 gm IV EVERY HD PRN PRN Reason: Titrate to SBP (MUST DEFINE) Ondansetron HCl (Ondansetron 4 Mg/2 Ml Vial) 4 mg IV Q6HP PRN PRN Reason: NAUSEA / VOMITING Microbiology Results 01/03/24 23:32 Blood - Blood Aerobic Blood Culture - Preliminary No growth in 24 hours. 01/03/24 23:32 Blood - Blood Anaerobic Blood Culture - Preliminary No growth in 24 hours. 01/03/24 23:16 Blood - Blood Aerobic Blood Culture - Preliminary No growth in 24 hours. 01/03/24 23:16 Blood - Blood Anaerobic Blood Culture - Preliminary No growth in 24 hours. Assessment/ Plan: Nephrology No dyspnea No chest pain Feeling better No acute events overnight Sister Roz [phone] Vitals, medications, blood work and imaging reviewed in the chart General: In no apparent distress, Cooperative HEENT: Atraumatic Neck: Supple Respiratory: Normal air movement Cardiovascular: No edema, Regular rate/rhythm Gastrointestinal: Soft and benign, Non-distended Musculoskeletal: No clubbing, No contractures Integumentary: No cyanosis. Multiple ecchymoses Neurological: Normal speech Blood work reviewed in the chart. Imagings Data: EXAM DESCRIPTION: Chest Single View CLINICAL HISTORY: Ams COMPARISON: None. FINDINGS: Single frontal radiograph view of the chest. Cardiomediastinal silhouette: Atherosclerotic calcification of thoracic aorta. Heart is not enlarged. Lungs: No consolidation, pneumothorax, or pleural effusion. Leads overlie the chest. Bones: No acute osseous abnormality. Degenerative change of the spine and shoulders. Upper abdomen: No abnormality identified. IMPRESSION: 1. No acute pulmonary process identified. EXAM DESCRIPTION: CT of the head without contrast CLINICAL HISTORY: Ams COMPARISON: None available TECHNIQUE: Axial CT of the head obtained from the skull apex to the skull base without contrast. This exam was performed according to our departmental dose- optimization program, which includes automated exposure control, adjustment of the mA and/or kV according to patient size and/or use of iterative reconstruction technique. FINDINGS: No acute intracranial hemorrhage identified. No mass, mass effect, shift of the midline, abnormal extra-axial fluid collection or CT evidence of acute ischemic change identified. The ventricular system and sulcal spaces are mildly enlarged compatible with mild cerebral atrophy. Scattered areas of hypodensity throughout the supratentorial white matter are nonspecific and may be related to chronic small vessel ischemic change. The visualized paranasal sinuses and the mastoids are clear. No skull fracture identified. Visualized orbits and globes are unremarkable. Atherosclerotic calcification of the intracranial internal carotid arteries. IMPRESSION: 1. No acute intracranial abnormality by CT criteria. Conclusions/Impression: Stage III KRISTAL likely ATN CKD (Stage unclear) with Proteinuria -No NSAIDs -Continue IVF -Dr. Dobson placed temporary HD CVC; Daily HD initiated 01-07-24 -Hepatitis panel negative -Renal and Bladder US reviewed -Consider moses if urinary retention -Consult social work for possible HD placement Hypernatremia, improved Hyperkalemia, improved Hyperphosphatemia, improved HTN Tachycardia -Start Metoprolol BID Hypoalbuminemia -Consider protein supplementation Anemia due to blood loss in the setting of an elevated INR -Transfuse PRBC prn -Retacrit qHD Cigarette Smoker -Recommend cessation Case reviewed with Dr. Pena
[2024-01-08] MEDS: METOPROLOL TAR 25 MG TAB PO SCH (22:09)
[2024-01-09 06:39] LABS: Hematocrit 19.1 % (39.6-49.0); Hemoglobin 6.6 g/dL (13.6-17.9); MCH 30.7 pg (27.0-35.0); MCHC 34.4 g/dL (32.0-36.0); MCV 89.4 fL (80-100); MPV 8.8 fL (7.6-11.3); Platelets 182 thou/uL (152-406); RBC Red Blood Cell Count 2.14 M/uL (4.33-5.43); Red Cell Distribution Width 16.3 % (12.1-15.2)
[2024-01-09 06:42] LABS: PT Prothrombin Time 13.7 SECONDS (9.5-12.5); PTT, Activated Partial Thromb 54.8 SECONDS (24.3-36.9); Protime INR 1.25
[2024-01-09 06:56] LABS: Albumin 2.4 g/dL (3.4-5.0); Phosphorus 3.8 mg/dL (2.5-4.9)
[2024-01-09] MEDS ORDERED: NA CHLORIDE 0.9% 250 ML IV SCH (08:00)
--- NOTE | 2024-01-09 11:00 | P.PN ---
Nephrology (S) Pt seen lying in bed, remains on IVF and heparin drip. No acute complaints, eating, no N/V. Tolerated HD sessions. Making some urine Vitals, medications, blood work and imaging reviewed in the chart General: In no apparent distress, Cooperative HEENT: Atraumatic, sclera anicteric Neck: Rt sided hemosplit dialysis catheter Respiratory: Normal air movement, non tachypnec, no rales Cardiovascular: Mild distal edema, Regular rate/rhythm mostly Gastrointestinal: Soft and benign, Non-distended Musculoskeletal: No clubbing, No contractures Integumentary: No cyanosis. Multiple ecchymoses Neurological: Normal speech Blood work reviewed in the chart. Conclusions/Impression: Sub-acute Stage III renal failure most likely 2nd to ATN (with relative hypotension and severe anemia noted on admission). Renal function tests normal in 2019. -S/p placement of a hemosplit dialysis catheter. Daily HD initiated 01-07-24 -Renal and Bladder US reviewed, no obstructive uropathy -Non anuric -Severe azotemia slowly improving -Repeat HD today for metab clearance -Will likely need to cont iHD as OP while monitoring for signs of renal recovery over the next few weeks HTN, underlying -BP no longer low, taking in PO intake. D/c maintenance IVF. Cautious UF on dialysis given positive fluid balance Anemia multifactorial but with post hemorrhagic loss in the setting of suprathrapeutic INR -Transfuse additional 1 unit PRBC on HD today for drop in H/H. -Anticoagulation management per primary team
--- NOTE | 2024-01-09 13:07 | P.PN ---
Date of Service: 01/09/24 Subjective: Doing well today has been ambulating with PT HGB 6.6 this morning ROS: 10 point ROS as noted above, otherwise negative Physical exam GEN: Alert, oriented, NAD HEENT: Normal conjunctiva, sclera anicteric CV: Regular rate and rhythm, no edema, Right IJ central line in place-oozing some blood Pulm: Nonlabored respirations on room air ABD: Soft, nontender, nondistended MSK: No joint tenderness Integumentary: No rashes Neuro: Normal speech, normal affect Vitals reviewed Problem List Acute kidney injury Acute blood loss anemia secondary to lower GI bleed Supratherapeutic INR-resolved 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 History of hypertension History of COPD Plan Acute kidney injury No significant proved in renal function Temporary dialysis catheter placed right IJ 01/06 Had first session of dialysis 01/06-plan for 3 total consecutive days of dialysis Avoid NSAIDs, IV contrast Monitor renal function daily PT consulted working on setting up outpatient dialysis Acute blood loss anemia secondary to lower GI bleed Supratherapeutic INR-resolved Bleeding seems to have resolved Has received 6 units PRBC and 2 unit FFP GI consulted Monitor H&H-6.6 01/08 am, will give one unit with dialysis Was started on heparin drip 01/06 which is ongoing Likely transition to [facility] monitor for sings of GI bleeding, reports soft brown stools 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
[2024-01-09] MEDS: LORazepam 2 MG/ML VIAL IV ONE (14:17)
[2024-01-09 20:12] LABS: Hematocrit 25.7 % (39.6-49.0); Hemoglobin 8.8 g/dL (13.6-17.9)
[2024-01-10 03:53] LABS: PTT, Activated Partial Thromb 48.3 SECONDS (24.3-36.9); Protime INR 1.09
[2024-01-10 04:02] LABS: Albumin 2.3 g/dL (3.4-5.0); Anion Gap 9.9 mEq/L (5.0-15.0); Potassium 3.9 mEq/L (3.5-5.1)
[2024-01-10 04:09] LABS: Hemoglobin 7.8 g/dL (13.6-17.9)
[2024-01-10 04:13] LABS: Absolute Basophils 0.1 K/uL (0-0.5); Absolute Eosinophils 0.3 K/uL (0-0.5); Absolute Monocytes 1.3 K/uL (0.1-1.3); Basophils % 0.9 % (0-1.3); Eosinophils % 2.5 % (0-4.4); Hematocrit 22.5 % (39.6-49.0); Lymphocytes % 18.5 % (15.3-44.8); MCH 30.8 pg (27.0-35.0); MCHC 34.9 g/dL (32.0-36.0); MCV 88.2 fL (80-100); MPV 8.8 fL (7.6-11.3); Monocytes % 11.9 % (3.3-12.3); Neutrophils % 66.2 % (41.7-73.7); Nucleated Red Blood Cells % 0.3 % (0-0); Platelets 196 thou/uL (152-406); RBC Red Blood Cell Count 2.55 M/uL (4.33-5.43); Red Cell Distribution Width 16.2 % (12.1-15.2)
--- NOTE | 2024-01-10 10:38 | CON ---
Date of Consultation: 01/10/2024 Reason For Consultation: Consideration for IVC filter. Patient's chief complaint was bloody stool. History Of Present Illness: A 68-year-old male presented with bloody stool. He has history of DVT, on Coumadin. Upon arrival, INR was 22. He was found to be in full-blown acute renal failure, has be en having diarrhea for a few days prior. At the present time, there is no active bleed. Past Medical History: DVT, hypertension. Medications: Refer reconciliation sheet for detailed list. Allergies: NO KNOWN DRUG ALLERGIES. Family History: No premature coronary disease or cancer. Social History: Does not smoke or drink. Does not use any drugs. Review of Systems: All systems reviewed, and they were negative except mentioned in HPI. Physical Examination: Vital Signs: Reviewed. Head and Neck: Pupils are equal, reactive to light. Intact eye movements. No JVD. No cervical lym phadenopathy. Neck is supple. Thyroid is not enlarged. Lungs: Clear to auscultation bilaterally. No rhonchi, rales, or crackles. No accessory muscle use. Heart: Regular. No extra sounds. Abdomen: Soft, nontender. Bowel sounds positive. No organomegaly. No masses or hernia. No rigidi ty or rebound. Extremities: No edema, clubbing, cyanosis. Intact pulses. Skin: No rash. Neurologic: Alert, awake. No acute focal deficits appreciated. Investigations: BUN 37, creatinine 7.56 down from 16.3. Hemoglobin 7.8. Assessment/recommendation: 1.Deep venous thrombosis with massive gastrointestinal bleed, on Coumadin. At this point, IVC filte r probably indicated, but I still recommended to challenge him with a low dose of Eliquis and to stop the Coumadin as regulating has been a challenge where he was admitted with INR of 22. We will plan for IVC filter placement on Friday, but I still will challenge him with a low dose of Eliquis 2.5 mg twice a day. 2.Acute renal failure, probably acute tubular necrosis, on dialysis and being followed by Nephrology . 3.Supratherapeutic INR, resolved with vitamin K and FFPs. He is on heparin drip now for the DVT. Curt bartlett will plan for IVC filter implantation early next week. /MODL Voice ID: [id number] Report ID: [id number]
[2024-01-10 10:54] LABS: Complement C3 100 mg/dL (82-185)
--- NOTE | 2024-01-10 11:25 | P.PN ---
Date of Service: 01/10/24 Subjective: Doing well today has been ambulating with PT ROS: 10 point ROS as noted above, otherwise negative Physical exam GEN: Alert, oriented, NAD HEENT: Normal conjunctiva, sclera anicteric CV: Regular rate and rhythm, no edema, Right IJ central line in place-oozing some blood Pulm: Nonlabored respirations on room air ABD: Soft, nontender, nondistended MSK: No joint tenderness Integumentary: No rashes Neuro: Normal speech, normal affect Vitals reviewed Problem List Acute kidney injury Acute blood loss anemia secondary to lower GI bleed Supratherapeutic INR-resolved 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 History of hypertension History of COPD Plan Acute kidney injury No significant improvement in renal function Temporary dialysis catheter placed right IJ 01/06 Had first session of dialysis 01/06 continue HD per nephrology Avoid NSAIDs, IV contrast Monitor renal function daily PT consulted working on setting up outpatient dialysis Acute blood loss anemia secondary to lower GI bleed Supratherapeutic INR-resolved Bleeding seems to have resolved Has received 6 units PRBC and 2 unit FFP GI consulted Monitor H&H Was started on heparin drip 01/06 which is ongoing Likely transition to eliquis monitor for sings of GI bleeding, reports soft brown stools Plan for possible IVC filter placement, transition to NOAC and potential GI evaluation with endoscopy 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 Patient with history of extensive left lower extremity DVT and PE in 2019 Was transferred to [facility] for evaluation for thrombectomy Reports he does have a stent placed to that leg, likely had thrombectomy and stent placement Venous ultrasound performed here shows DVT of left superficial femoral and left popliteal veins Heparin drip started 01/06 evening History of hypertension History of COPD Continue home meds VTE: Heparin drip Code: Full Dispo: Greater than 3 days Time Spent Managing Pts Care (In Minutes): 35
[2024-01-10 11:34] LABS: C-ANCA Anti-Proteinase 3 <1.0 AI (<1.0); P-ANCA Anti-Myeloperoxidase Ab <1.0 AI (<1.0)
--- NOTE | 2024-01-10 13:53 | PN ---
Date of Progress Note: 01/10/2024 Subjective: The patient was seen and examined at bedside. He is doing okay. Denies any complaints. Objective: Vital signs have been reviewed and are stable. Laboratory Data: Has been reviewed as well. Impression: 1.Acute renal failure, started on dialysis. The patient had 3 dialysis sessions in a row and his la bs seem stable at this time. We will continue to monitor and follow up. 2.Severe azotemia, improving. 3.Hypertension, stable at this time. 4.Anemia secondary to chronic kidney disease. The patient has received some transfusion. We will g o ahead and order some Retacrit with Epogen. Epogen has been ordered with dialysis. We will continu e to monitor. Plan: Overall the patient is clinically stable. Has been started on dialysis for acute kidney injur y. His serologies are still pending at this time. We will continue to follow up. VV/MODL Voice ID: [id number] Report ID: [id number]
[2024-01-11 04:42] LABS: Hemoglobin 8.4 g/dL (13.6-17.9); MCHC 33.6 g/dL (32.0-36.0); MCV 89.3 fL (80-100); MPV 8.6 fL (7.6-11.3); Platelets 251 thou/uL (152-406); Red Cell Distribution Width 16.3 % (12.1-15.2)
[2024-01-11 04:51] LABS: PT Prothrombin Time 10.8 SECONDS (9.5-12.5); PTT, Activated Partial Thromb 52.8 SECONDS (24.3-36.9); Protime INR 0.98
[2024-01-11 05:03] LABS: AST/SGOT 17 U/L (15-37); Albumin 2.5 g/dL (3.4-5.0); Albumin/Globulin Ratio 0.6 (1.1-1.8); Alkaline Phosphatase 79 U/L (45-117); Anion Gap 10.9 mEq/L (5.0-15.0); BUN Blood Urea Nitrogen 40 mg/dL (7-18); Bicarbonate 28 mEq/L (21-32); Bilirubin Total 0.3 mg/dL (0.2-1.0); Globulin 4.2 g/dL (2.3-3.5); Glomerular Filtration Rate 5 ml/min (=/>90); Glucose Level 108 mg/dL (74-106); Potassium 3.9 mEq/L (3.5-5.1); Protein, Total 6.7 g/dL (6.4-8.2); Sodium Level 136 mEq/L (136-145)
[2024-01-11 05:06] LABS: ALT/SGPT < 10 U/L (16-61)
--- NOTE | 2024-01-11 05:40 | P.PN ---
Date of Service: 01/11/24 Patient apparently had a couple of melanotic stools. This was on 2 different occasions. According to the nursing staff patient had a episode yesterday and 1 this morning around 445. Started on Protonix and will repeat H&H. Hemoglobin has improved. Continue monitoring H&H. Consider stopping heparin but will repeat H&H at this time. Hemodynamically stable.
[2024-01-11] MEDS: PANTOPRAZOLE INJ 80 MG in NA CHLORIDE 0.9% 250 ML IV SCH (06:00)
[2024-01-11 12:06] LABS: Abnormal Protein Band 1 0.5 g/dL; Alpha-1-Globulins 0.3 g/dL (0.2-0.3); Alpha-2-Globulins 0.8 g/dL (0.5-0.9); Beta 1 Globulin 0.2 g/dL (0.4-0.6); Gamma Globulins 0.9 g/dL (0.8-1.7); INTERPRETATION REPORT; Total Protein 5.5 g/dL (6.1-8.1)
--- NOTE | 2024-01-11 12:09 | P.PN ---
Date of Service: 01/11/24 Subjective: had 2 episodes of melena overnight H/H stable No complaints today ROS: 10 point ROS as noted above, otherwise negative Physical exam GEN: Alert, oriented, NAD HEENT: Normal conjunctiva, sclera anicteric CV: Regular rate and rhythm, no edema, Right IJ central line in place-no longer oozing blood Pulm: Nonlabored respirations on room air ABD: Soft, nontender, nondistended MSK: No joint tenderness Integumentary: No rashes Neuro: Normal speech, normal affect Vitals reviewed Problem List Acute kidney injury Acute blood loss anemia secondary to lower GI bleed Supratherapeutic INR-resolved 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 History of hypertension History of COPD Plan Acute kidney injury No significant improvement in renal function Temporary dialysis catheter placed right IJ 01/06 Had first session of dialysis 01/06 continue HD per nephrology Avoid NSAIDs, IV contrast Monitor renal function daily PT consulted working on setting up outpatient dialysis Acute blood loss anemia secondary to lower GI bleed Supratherapeutic INR-resolved 2 episodes of melena evening 01/09 Has received 6 units PRBC and 2 unit FFP GI consulted Monitor H&H Was started on heparin drip 01/06 which is ongoing Likely transition to eliquis Plan for possible IVC filter placement 01/11 After IVC filter GI plans on possible scope After scope/once cleared by GI transition heparin drip to NOAC 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 Patient with history of extensive left lower extremity DVT and PE in [address] [facility] for evaluation for thrombectomy Reports he does have a stent placed to that leg, likely had thrombectomy and stent placement Venous ultrasound performed here shows DVT of left superficial femoral and left popliteal veins Heparin drip started 01/06 evening Plan for possible IVC filter placement 01/11 After IVC filter GI plans on possible scope After scope/once cleared by GI transition heparin drip to NOAC History of hypertension History of COPD Continue home meds VTE: Heparin drip Code: Full Dispo: Greater than 3 days Time Spent Managing Pts Care (In Minutes): 35
[2024-01-11 12:10] LABS: Absolute Basophils 0.1 K/uL (0-0.5); Absolute Eosinophils 0.3 K/uL (0-0.5); Absolute Monocytes 1.3 K/uL (0.1-1.3); Absolute Neutrophil 6.9 K/uL (1.8-8.0); Basophils % 1.2 % (0-1.3); Eosinophils % 2.4 % (0-4.4); Hematocrit 22.5 % (39.6-49.0); Hemoglobin 7.5 g/dL (13.6-17.9); Lymphocytes % 18.8 % (15.3-44.8); MCH 29.8 pg (27.0-35.0); MCHC 33.3 g/dL (32.0-36.0); MCV 89.5 fL (80-100); MPV 8.5 fL (7.6-11.3); Monocytes % 12.1 % (3.3-12.3); Neutrophils % 65.5 % (41.7-73.7); Nucleated RBC Absolute Count 0.4 (0-0); Percent Reticulocyte Count 1.87 % (0.4-2.05); Platelets 248 thou/uL (152-406); RBC Red Blood Cell Count 2.51 M/uL (4.33-5.43); Red Cell Distribution Width 15.9 % (12.1-15.2)
[2024-01-11 13:18] LABS: Band Neutrophils 8 % (0-1); Differential Total Cells Count 100; Eosinophils 2 % (0-3); Lymphocytes 17 % (15-42); Metamyelocytes 1 % (0-0); Monocytes 10 % (0-10); Segmented Neutrophils 61 % (40-80)
[2024-01-11 13:19] LABS: Anisocytosis 1+; Blood Morphology Comment NOTED (NOT SEEN); Myelocytes 1 % (0-0); Nucleated Red Blood Cells 7 /100WBC; Platelet Estimate ADEQ; Polychromasia 1+
--- NOTE | 2024-01-11 16:04 | P.PN ---
Subjective Date of Service: 01/11/24 Chief Complaint: Bloody stools, anemia, hgb 6.6, HD catheter site bleeding as well, INR 27 Subjective: New changes (2 melanotic stools reported overnight by RNs, on PPI therapy. IVC filter placement tomorrow planned.), Other (INR 27 on admission, now 0.98) Review of Systems 10-point ROS is otherwise unremarkable General: Weakness (Improved.) Neurological: Confusion (Mild) Physical Examination - Vital Signs Temperature: 97.5 F Blood Pressure: 115/61 Pulse: 80 Respirations: 17 Pulse Ox (%): 98 - Physical Exam General: Alert, In no apparent distress, Cooperative HEENT: Atraumatic, Normocephalic, PERRLA, EOMI Neck: Supple Respiratory: Normal air movement Cardiovascular: Normal pulses Gastrointestinal: Soft and benign, No tenderness, No rebound, No guarding Neurological: Normal speech, Normal strength at 5/5 x4 extr - Studies Medications List Reviewed: Yes Assessment And Plan - Current Problems (Diagnosis) (1) Hematochezia Current Visit: Yes Status: Acute (2) Melena Current Visit: Yes Status: Acute (3) KRISTAL (acute kidney injury) Current Visit: Yes Status: Acute (4) Acute blood loss anemia Current Visit: Yes Status: Acute (5) Coagulopathy Current Visit: Yes Status: Acute - Plan REC: 1) Agree with IVC filter placement 2) probable EGD / colonoscopy on Friday 3) serial H&Hs and transfuse prn 4) continue PPI therapy 5) U/S abdomen
--- NOTE | 2024-01-11 16:33 | PN ---
Date of Progress Note: 01/11/2024 Subjective: The patient was seen and examined at bedside. No issues were noted. Physical Examination: Vital Signs: Reviewed and are stable. General: He appears cachectic, malnourished. HEENT: Atraumatic head. Lungs: Clear to auscultation. Abdomen: Soft and nontender. Extremities: Showed no evidence of edema. 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 Impression: 1.End-stage renal disease, on dialysis. We will plan for next dialysis tomorrow. 2.Anemia secondary to chronic kidney disease. Continue Retacrit with dialysis. 3.History of deep vein thrombosis, pulmonary embolism in the left common iliac and left external vei ns. The patient is currently on heparin. Plan: Overall, patient is clinically stable. Plan for dialysis tomorrow. We will plan to convert t o tunneled dialysis catheter and monitor labs and placement at chronic dialysis facility. VV/MODL Voice ID: [id number] Report ID: [id number]
--- NOTE | 2024-01-11 20:57 | CON ---
Date of Consultation: 01/09/2024 Reason For Consultation: Anemia, GI bleed. Hemoglobin is down to 6.6. History Of Present Illness: The patient is a 68-year-old white male with history of hypertension, es sential tremor, prior alcohol abuse, and DVT. On this admission, acute renal failure. Patient prese nted to the hospital with bloody diarrhea. The patient is somewhat confused, though he states that h e has not had any more bleeding since admission. The patient was found to have a DVT on this admissi on, started on IV heparin. DVT was in the left superficial femoral and left popliteal veins. The kriss rene was also found to have acute renal failure, needing hemodialysis on admission as well. The cedrick iemigdalia is recovering, however, he had not had any further bleeding as per his report. No melena, hemat ochezia, hematemesis, hematuria, or other according to his report. On admission, he did have red sto ols and had INR elevated at 26.86, which has traveled down to approximately 1 now with therapy. Hemo globin 6.6 at the lowest level. Past Medical History: Significant for hypertension, essential tremor, prior alcohol abuse. It appea rs in the chart review, he is unclear whether he has really quit alcohol, but none recently. Positiv e for tobacco, looks like he may live alone. It is not really clear. Patient is unable to answer qu estions appropriately and states no hemodialysis currently. Family History: Father from cancer of unknown type. Also, hypertension. Mother of cancer of unknown type with hypertension. Review of Systems: Patient had melena, bloody stools. Nurses said it could be red, maybe a little black, but mainly red when they saw him on admission. appears. No chest pain, shortness of breath, seizure, syncope, mus kale aches, joint aches, backaches. He stated he did have some black stools and bloody stools. No he matemesis, coffee-ground emesis, hematuria, dysuria, polydipsia, epistaxis, hemoptysis, lower extremi ty muscle and joint aches. The patient did have a DVT in his left superficial femoral and left popli teal veins with acute renal failure. Physical Examination: Vital Signs: The patient is 5 feet 11 inches, 189 pounds, BMI 26.4 kg/sq m. Temperature is 97.9 deg elicia Fahrenheit, pulse 97, respirations 18, blood pressure 122/68, O2 saturation 98%. General: He is a well-nourished, well-developed male, in bed, in no acute distress. Arousable to ph ysical and verbal stimuli. Answers some questions appropriately, others seems to look mildly confuse d. Drowsy. HEENT: Normocephalic, atraumatic. Anicteric. Pupils equal, round, and reactive to light. Extraocu lar movements are intact. Oropharynx clear. Oropharynx is clear. Neck: Supple. No masses. Respirations: Clear to auscultation bilaterally. Cardiac: Regular rate and rhythm. Gastrointestinal: Positive bowel sounds. Soft, nontender, nondistended. No hepatosplenomegaly. Extremities: No clubbing, cyanosis. Trace lower extremity edema. Neuro: Alert and oriented to person, place questionable time. He is somewhat disheveled as well wit h long strangled mora, unkempt hair. Laboratory Data: The patient has a white count of 10.2, down from 10.9 yesterday; hemoglobin 6.6; h ematocrit of 19.1, MCV of 89, platelet count of 182. PT of 13.7, INR of 1.25, PTT of 54.8. Of note, on admission, patient had INR of 23.84, increased next day to 26.86 with a PTT of 75.4 on admission. The patient has a sodium of 136; potassium 4.0; chloride 106; bicarb 25; BUN of 61; creatinine of 9 .96, down from 16.0 on admission. Calcium is 8.9. Phosphorus 3.8. Albumin 3.4, which is low. AST on the is 19, ALT 11, alkaline phosphatase 63, total protein 5.6, albumin 2.4, globulin 3.2. UA: 2+ blood, 21-50 red blood cells. Otherwise negative. Immunology is pending. Serologies: Hepatitis A, B, and C are negative, nonre active. Imaging: The patient's chest x-ray on January 06 revealed mild diffuse interstitial prominence. There is mild central congestion. Impression: 1.Anemia. Hemoglobin down to 3.6, possibly from IV catheter placement for hemodialysis, plus-minus gastrointestinal bleeding. The patient has not seen blood since the day of admission with bloody sto ol exam with an INR of 26.86 IV catheter placement for hemodialysis. He has had no bloody stools since admission. He reports no prior colonoscopy. He denies any bleeding currently. 2.Deep vein thrombosis in the left superficial femoral vein and also in the left popliteal vein on I V heparin. Increased risk for further procedure at this time. 3.Acute renal failure, on hemodialysis with a creatinine of 16.0. Also, history of hyper tension; alcohol abuse previously, and essential tremors, could be alcohol withdrawal. Recommendations: 1.Agree with packed RBCs with serial H and H and transfuse p.r.n. 2.PPI therapy prophylaxis. 3.If clinical GI bleeding recurrence is seen, we will consider high risk colonoscopy. 4.Consider IVC filter placement in this patient prior to GI procedures to protect cardiopulmonary or jennifer from acute DVT from left femoral-popliteal blood clots. 5.Check ammonia level and for the liver testing to assure no cirrhosis. MAREK/SAMIA Voice ID: [id number] Report ID: [id number]
[2024-01-11 21:48] LABS: Hematocrit 22.5 % (39.6-49.0); Hemoglobin 7.7 g/dL (13.6-17.9)
[2024-01-12 06:26] LABS: Hematocrit 21.5 % (39.6-49.0); Hemoglobin 7.4 g/dL (13.6-17.9); MCHC 34.6 g/dL (32.0-36.0); MCV 89.6 fL (80-100); MPV 8.3 fL (7.6-11.3); Platelets 274 thou/uL (152-406); Red Cell Distribution Width 16.3 % (12.1-15.2)
[2024-01-12 06:48] LABS: ALT/SGPT < 10 U/L (16-61); AST/SGOT 15 U/L (15-37); Albumin 2.3 g/dL (3.4-5.0); Albumin/Globulin Ratio 0.6 (1.1-1.8); Alkaline Phosphatase 71 U/L (45-117); Anion Gap 9.6 mEq/L (5.0-15.0); BUN Blood Urea Nitrogen 45 mg/dL (7-18); Bicarbonate 27 mEq/L (21-32); Bilirubin Total 0.4 mg/dL (0.2-1.0); Globulin 3.9 g/dL (2.3-3.5); Glomerular Filtration Rate 4 ml/min (=/>90); Glucose Level 106 mg/dL (74-106); Potassium 3.6 mEq/L (3.5-5.1); Protein, Total 6.2 g/dL (6.4-8.2); Sodium Level 137 mEq/L (136-145)
[2024-01-12 06:53] LABS: PT Prothrombin Time 10.5 SECONDS (9.5-12.5); Protime INR 0.95
--- NOTE | 2024-01-12 09:18 | RAD REPORT ---
EXAM DESCRIPTION: US - Abdomen Exam Complete - 01/12/2024 8:40 am CLINICAL HISTORY: possible cirrhosis COMPARISON: Renal Ultrasound-Complete dated 01/05/2024 FINDINGS: No aortic aneurysm. Coarsened echotexture of the liver suggesting cirrhosis. No focal mass identified. The portal vein is patent. The IVC at the level of the liver is unremarkable. Trace perihepatic ascites. The gallbladder is unremarkable. No pericholecystic fluid, wall thickening, or gallstones identified. No biliary ductal dilatation. Gallbladder is contracted. The pancreas was grossly unremarkable. The right kidney measures 14.9 cm normal echotexture. No hydronephrosis. No suspicious masses. The left kidney measures 13.2 cm with a normal echotexture. No hydronephrosis. No suspicious masses. The spleen is unremarkable. IMPRESSION: Coarsened liver echotexture suggesting cirrhosis. No focal mass appreciated. Trace perihepatic ascites.
--- NOTE | 2024-01-12 11:22 | P.PN ---
Date of Service: 01/12/24 Subjective: Going for IVC filter today No acute events overnight ROS: 10 point ROS as noted above, otherwise negative Physical exam GEN: Alert, oriented, NAD HEENT: Normal conjunctiva, sclera anicteric CV: Regular rate and rhythm, no edema, Right IJ central line in place-no longer oozing blood Pulm: Nonlabored respirations on room air ABD: Soft, nontender, nondistended MSK: No joint tenderness Integumentary: No rashes Neuro: Normal speech, normal affect Vitals reviewed Problem List Acute kidney injury Acute blood loss anemia secondary to lower GI bleed Supratherapeutic INR-resolved 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 History of hypertension History of COPD Plan Acute kidney injury No significant improvement in renal function Temporary dialysis catheter placed right IJ 01/06 Had first session of dialysis 01/06 continue HD per nephrology Avoid NSAIDs, IV contrast Monitor renal function daily PT consulted working on setting up outpatient dialysis Acute blood loss anemia secondary to lower GI bleed Supratherapeutic INR-resolved 2 episodes of melena evening 01/09 Has received 6 units PRBC and 2 unit FFP GI consulted Monitor H&H Was started on heparin drip 01/06 which is ongoing Likely transition to eliquis after EGD/GI eval IVC filter today After IVC filter GI plans on possible scope-likely 01/13 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 Patient with history of extensive left lower extremity DVT and PE in 2018 Was transferred to [facility] for evaluation for thrombectomy Reports he does have a stent placed to that leg, likely had thrombectomy and stent placement Venous ultrasound performed here shows DVT of left superficial femoral and left popliteal veins Heparin drip started 01/06 evening Plan for possible IVC filter placement 01/11 After scope/once cleared by GI transition heparin drip to NOAC History of hypertension History of COPD Continue home meds VTE: Heparin drip Code: Full Dispo: Greater than 3 days Time Spent Managing Pts Care (In Minutes): 35
[2024-01-12] MEDS: CYANOCOBALAMIN 1000MCG/ML INJ SQ SCH (12:34)
[2024-01-12] MEDS: NA CHLORIDE 0.9% 500 ML ONE (13:58)
[2024-01-12] MEDS ORDERED: HEPA 1000U/500MLS 2,000 UNIT/1,000 ML BAG IV ONE (14:11)
[2024-01-12] MEDS ORDERED: LIDOCAINE 1% 20 ML MDV ONE (14:11)
[2024-01-12] MEDS ORDERED: FENTANYL CITR 100 MCG/2 ML ONE (14:11)
[2024-01-12] MEDS ORDERED: HEPARIN 10,000 UNIT/10 ML VIAL IV ONE (14:12)
[2024-01-12] MEDS ORDERED: MIDAZOLAM HCL 2 MG/2 ML INJ ONE (14:12)
--- NOTE | 2024-01-12 14:34 | P.PN ---
Date of Service: 01/12/24 Vital Signs Temp Pulse Resp BP Pulse Ox 97.9 F 90 18 136/69 97 01/12/24 14:20 01/12/24 14:20 01/12/24 14:20 01/12/24 14:20 01/12/24 12:00 Medications Albuterol Sulfate (Albuterol 2.5 Mg/3 Ml Neb Cris) 2.5 mg NEB [id number] PRN PRN Reason: SHORTNESS OF BREATH Cyanocobalamin (Cyanocobalamin 1000mcg/Ml Inj) 1,000 mcg SQ DAILY [facility] Stop: 01/18/24 09:01 Last Admin: 01/12/24 12:34 Dose: 1,000 mcg Epoetin Octavio (Epoetin Octavio 10,000 Unit/Ml Vial) 10,000 unit IV EVERY HD [facility] Last Admin: 01/09/24 15:00 Dose: 10,000 unit Heparin Sodium (Porcine) (Heparin 1,000 Unit/Ml Vial) 6,000 unit IV EVERY HD PRN PRN Reason: AFTER EACH Last Admin: 01/09/24 16:17 Dose: 6,000 unit Heparin Sodium (Porcine) (Heparin 1,000 Unit/Ml Vial) 0 unit IV PRN PRN PRN Reason: Heparin Re-Bolus Per Protocol Last Admin: 01/12/24 08:33 Dose: 3,000 unit Albumin Human (Albumin 25%) 50 mls @ 100 mls/hr IV EVERY HD [facility] Heparin Sodium/Dextrose (Heparin Drip 25,000 Units/5oo Ml Premix) 25,000 unit in 500 mls @ 0 mls/hr IV UD [facility]; Protocol Last Admin: 01/12/24 02:03 Dose: 500 mls Sodium Chloride (Sodium Chloride) 250 mls @ 0 mls/hr IV .Q0M [facility] Pantoprazole Sodium 80 mg/ (Sodium Chloride) 250 mls @ 25 mls/hr IV Q10H [facility]; Protocol Last Admin: 01/12/24 12:34 Dose: 250 mls Ipratropium [place] (Ipratropium Brom 0.5mg/2.5ml) 0.5 mg NEB [id number] [facility] Last Admin: 01/12/24 12:45 Dose: 0.5 mg Metoprolol Tartrate (Metoprolol Tar 25 Mg Tab) 12.5 mg PO BID [id number] Last Admin: 01/12/24 08:05 Dose: Not Given Multivitamins/Minerals (Multivitamin Tab) 1 tab PO DAILY [facility] Ondansetron HCl (Ondansetron 4 Mg/2 Ml Vial) 4 mg IV Q6HP PRN PRN Reason: NAUSEA / VOMITING Microbiology Results 01/03/24 23:32 Blood - Blood Aerobic Blood Culture - Final No growth in 5 days. 01/03/24 23:32 Blood - Blood Anaerobic Blood Culture - Final No growth in 5 days. 01/03/24 23:16 Blood - Blood Aerobic Blood Culture - Final No growth in 5 days. 01/03/24 23:16 Blood - Blood Anaerobic Blood Culture - Final No growth in 5 days. Assessment/ Plan: Nephrology No dyspnea No chest pain Hungry No acute events overnight Sister Roz [phone] Vitals, medications, blood work and imaging reviewed in the chart General: In no apparent distress, Cooperative HEENT: Atraumatic Neck: Supple Respiratory: Normal air movement Cardiovascular: No edema, Regular rate/rhythm Gastrointestinal: Soft and benign, Non-distended Musculoskeletal: No clubbing, No contractures Integumentary: No cyanosis. Multiple ecchymoses Neurological: Normal speech Blood work reviewed in the chart. Imagings Data: EXAM DESCRIPTION: Chest Single View CLINICAL HISTORY: Ams COMPARISON: None. FINDINGS: Single frontal radiograph view of the chest. Cardiomediastinal silhouette: Atherosclerotic calcification of thoracic aorta. Heart is not enlarged. Lungs: No consolidation, pneumothorax, or pleural effusion. Leads overlie the chest. Bones: No acute osseous abnormality. Degenerative change of the spine and shoulders. Upper abdomen: No abnormality identified. IMPRESSION: 1. No acute pulmonary process identified. EXAM DESCRIPTION: CT of the head without contrast CLINICAL HISTORY: Ams COMPARISON: None available TECHNIQUE: Axial CT of the head obtained from the skull apex to the skull base without contrast. This exam was performed according to our departmental dose- optimization program, which includes automated exposure control, adjustment of the mA and/or kV according to patient size and/or use of iterative reconstruction technique. FINDINGS: No acute intracranial hemorrhage identified. No mass, mass effect, shift of the midline, abnormal extra-axial fluid collection or CT evidence of acute ischemic change identified. The ventricular system and sulcal spaces are mildly enlarged compatible with mild cerebral atrophy. Scattered areas of hypodensity throughout the supratentorial white matter are nonspecific and may be related to chronic small vessel ischemic change. The visualized paranasal sinuses and the mastoids are clear. No skull fracture identified. Visualized orbits and globes are unremarkable. Atherosclerotic calcification of the intracranial internal carotid arteries. IMPRESSION: 1. No acute intracranial abnormality by CT criteria. Conclusions/Impression: Stage III KRISTAL likely ATN CKD (Stage unclear) with Proteinuria -No NSAIDs -Dr. Dobson placed temporary HD CVC; Daily HD initiated 01-07-24 -Hepatitis panel negative -Renal and Bladder US reviewed -HD placement pending; will need a tunneled CVC prior to discharge HTN Tachycardia -Continue Metoprolol BID Hypoalbuminemia -Consider protein supplementation Anemia due to blood loss in the setting of an elevated INR Anemia in chronic illness/ CKD B12 Deficiency -Transfuse PRBC prn -Retacrit qHD -Start SC B12 -Start MVI MGUS -Serum and Urine DEN pending Cigarette Smoker -Recommend cessation Case reviewed with Dr. Pena
[2024-01-12 15:12] LABS: Ferritin 462.6 ng/mL (26-388)
--- NOTE | 2024-01-12 18:36 | PN ---
Date of Progress Note: 01/12/2024 Subjective: Seen at bedside. No new complaints. Review of Systems: No chest pain, shortness of breath, orthopnea, cough. No nausea, vomiting, diarrhea. All other syst ems reviewed are negative. Physical Examination: Vital Signs: Reviewed. Head and Neck: Pupils are equal, reactive to light. Intact eye movements. No JVD. No cervical lym phadenopathy. Neck is supple. Thyroid is not enlarged. Lungs: Clear to auscultation bilaterally. No rhonchi, rales, or crackles. No accessory muscle use. Heart: Regular rate and rhythm. No extra sounds. Abdomen: Soft, nontender. Bowel sounds positive. No organomegaly. No masses or hernia. No rigidi ty or rebound. Extremities: No edema, clubbing, cyanosis. Intact pulses. Skin: No rashes. Neurologic: Alert, awake, oriented x3. No acute focal deficits appreciated. Investigations: BUN 44, creatinine 11.3. Hemoglobin 7.4. Assessment/recommendation: 1.GI bleed. The patient is unable to take anticoagulant and he has history of DVT. We will plan fo r an IVC filter. See below. 2.DVT, unable to get anticoagulants due to the fact of massive GI blood loss and anemia due to blood loss. We will plan to place the IVC filter and probably switch him from Coumadin to Eliquis, low dose 2.5 mg twice a day and monitor his DVT very closely. 3.Anemia due to GI blood loss and it has been stable. SR/MODL Voice ID: [id number] Report ID: [id number]
--- NOTE | 2024-01-12 19:51 | OP ---
Date of Procedure: 01/12/2024 Surgeon: GERALD BOND Procedure Performed: IVC filter placement. Indication: Recurrent DVT with GI bleed and inability to take anticoagulant. Access: Right femoral vein, 7-Welsh, closed with manual pressure. Complications: None. Bleeding: None. Anesthesia: Total sedation time was about 30 minutes. Description Of Procedure: After risks, benefits, and alternatives were explained, patient agreed to procedure and signed informed consent. The [facility], prepped and draped in usual sterile fashion. Then, I accessed right femoral vein using a raisa ropuncture kit, ultrasound guidance, placed a 7-Welsh Repton sheath and then took a J-wire through the IVC and delivered the delivery system of the IVC filter into the IVC, right below the renal vein s and then venogram was performed with the help of the landmarks on the delivery catheter, device was deployed successfully and then postdeployment venogram showed successful positioning. I then remove d the delivery system and the sheath and manual pressure was used for closure with good hemostasis. Conclusion: Successful IVC filter deployment. /SAMIA Voice ID: [id number] Report ID: [id number]
[2024-01-13 06:56] LABS: Absolute Basophils 0.1 K/uL (0-0.5); Absolute Eosinophils 0.1 K/uL (0-0.5); Absolute Lymphocytes (CBC) 2.3 K/uL (0.7-4.9); Absolute Monocytes 1.7 K/uL (0.1-1.3); Absolute Neutrophil 6.1 K/uL (1.8-8.0); Basophils % 0.9 % (0-1.3); Eosinophils % 1.3 % (0-4.4); Hematocrit 21.9 % (39.6-49.0); Hemoglobin 7.3 g/dL (13.6-17.9); Lymphocytes % 22.8 % (15.3-44.8); MCHC 33.3 g/dL (32.0-36.0); MCV 89.8 fL (80-100); MPV 8.1 fL (7.6-11.3); Monocytes % 16.1 % (3.3-12.3); Neutrophils % 58.9 % (41.7-73.7); Nucleated RBC Absolute Count 0.3 (0-0); Nucleated Red Blood Cells % 3.2 % (0-0); Platelets 298 thou/uL (152-406); RBC Red Blood Cell Count 2.44 M/uL (4.33-5.43); Red Cell Distribution Width 16.6 % (12.1-15.2)
[2024-01-13 07:33] LABS: AST/SGOT 17 U/L (15-37); Albumin 2.3 g/dL (3.4-5.0); Albumin/Globulin Ratio 0.6 (1.1-1.8); Alkaline Phosphatase 71 U/L (45-117); Anion Gap 8.7 mEq/L (5.0-15.0); BUN Blood Urea Nitrogen 25 mg/dL (7-18); Bicarbonate 29 mEq/L (21-32); Bilirubin Total 0.3 mg/dL (0.2-1.0); Glomerular Filtration Rate 7 ml/min (=/>90); Glucose Level 97 mg/dL (74-106); Potassium 3.7 mEq/L (3.5-5.1); Protein, Total 6.3 g/dL (6.4-8.2); Sodium Level 138 mEq/L (136-145)
[2024-01-13 07:34] LABS: ALT/SGPT < 10 U/L (16-61)
[2024-01-13 08:02] LABS: Band Neutrophils 5 % (0-1); Differential Total Cells Count 100; Eosinophils 1 % (0-3); Lymphocytes 26 % (15-42); Metamyelocytes 1 % (0-0); Monocytes 6 % (0-10); Nucleated Red Blood Cells 2 /100WBC; Segmented Neutrophils 61 % (40-80)
[2024-01-13 08:03] LABS: Anisocytosis 1+; Blood Morphology Comment NOTED (NOT SEEN); Hypochromasia 1+; Platelet Estimate ADEQ; Polychromasia 1+
[2024-01-13] MEDS: MULTIVITAMIN TAB PO SCH (08:50)
[2024-01-13] MEDS: GOLYTELY 4000 ML PO SCH (14:06)
[2024-01-13] MEDS: MAGNESIUM CITRATE 300 ML BOT PO SCH (14:06)
--- NOTE | 2024-01-13 16:27 | PN ---
Date of Progress Note: 01/13/2024 Subjective: Seen by bedside, status post IVC filter placement yesterday. No complication. Review of Systems: No chest pain, shortness of breath, orthopnea, or cough. No nausea, vomiting, or diarrhea. All othe r systems were reviewed, they were negative. Objective: Vital Signs: Reviewed. Head and Neck: Pupils are equal, reactive to light. Intact eye movements. No JVD. No cervical lym phadenopathy. Neck is supple. Thyroid is not enlarged. Lungs: Clear to auscultation bilaterally. No rhonchi, wheezing, or crackles. No accessory muscle u se. Heart: Irregular. No extra sounds. Abdomen: Soft, nontender. Bowel sounds positive. No organomegaly. No masses or hernia. No rigidi ty or rebound. Extremities: No edema, clubbing, or cyanosis. Intact pulses. Skin: No rash. No nodule. Neurologic: Alert, awake, and no acute focal deficits appreciated. Investigations: Labs were reviewed. Assessment And Recommendations: 1.Recurrent DVT with massive GI bleed, status post IVC filter placement. I recommend low dose of El iquis if he can tolerate and if down the road within the next 3 months, he can tolerate Eliquis very well, then IVC filter can be retrieved. 2.GI bleed. GI workup is in progress. 3.Anemia due to GI blood loss, and hemoglobin stable. SR/MODL Voice ID: [id number] Report ID: [id number]
--- NOTE | 2024-01-13 18:51 | P.PN ---
Date of Service: 01/13/24 Subjective: Sleeping but arouses easily no new complaints ROS: 10 point ROS as noted above, otherwise negative Physical exam GEN: AAOx3, NAD, calm HEENT: Normal conjunctiva, sclera anicteric CV: RRR, no edema, Right IJ central line in place Pulm: Nonlabored respirations on room air ABD: Soft and benign on palpation, ND NT, normal active bowel sounds MSK: No joint tenderness Integumentary: No rashes Neuro: Normal speech, normal affect Vitals reviewed Problem List Acute kidney injury Acute blood loss anemia secondary to lower GI bleed Supratherapeutic INR-resolved 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 History of hypertension History of COPD Plan Acute kidney injury No significant improvement in renal function Temporary dialysis catheter placed right IJ 01/06 Had first session of dialysis 01/06 continue HD per nephrology Avoid NSAIDs, IV contrast Monitor renal function daily PT consulted working on setting up outpatient dialysis Acute blood loss anemia secondary to lower GI bleed Supratherapeutic INR-resolved 2 episodes of melena evening 01/09 Has received 6 units PRBC and 2 unit FFP Monitor H&H, 7.3/21.9 heparin drip started 01/06 -stop 01/13 at 0130 Likely transition to eliquis after EGD/GI eval IVC filter placed 01/11 GI plans for EGD 01/13 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 Patient with history of extensive left lower extremity DVT and PE in 2019 Was transferred to [facility] for evaluation for thrombectomy Reports he does have a stent placed to that leg, likely had thrombectomy and stent placement Venous ultrasound performed here shows DVT of left superficial femoral and left popliteal veins Heparin drip started 01/06- will stop 01/13 0130 Plan for possible IVC filter placement 01/11 After scope/once cleared by GI transition heparin drip to NOAC History of hypertension History of COPD Continue home meds VTE: Heparin drip- to stop 01/14/24 at 0130 for EGD procedure Code: Full Dispo: Greater than 3 days
[2024-01-13 19:57] LABS: Anti-Nuclear Antibody Screen Negative (Negative)
--- NOTE | 2024-01-13 21:04 | P.PN ---
Date of Service: 01/13/24 Vital Signs Temp Pulse Resp BP Pulse Ox 98.4 F 84 17 146/73 H 96 01/13/24 16:00 01/13/24 16:00 01/13/24 16:00 01/13/24 16:00 01/13/24 16:00 Medications Albuterol Sulfate (Albuterol 2.5 Mg/3 Ml Neb Cris) 2.5 mg NEB [id number] PRN PRN Reason: SHORTNESS OF BREATH Cyanocobalamin (Cyanocobalamin 1000mcg/Ml Inj) 1,000 mcg SQ DAILY [facility] Stop: 01/18/24 09:01 Last Admin: 01/13/24 08:50 Dose: 1,000 mcg Epoetin Octavio (Epoetin Octavio 10,000 Unit/Ml Vial) 10,000 unit IV EVERY HD [facility] Last Admin: 01/12/24 18:45 Dose: 10,000 unit Heparin Sodium (Porcine) (Heparin 1,000 Unit/Ml Vial) 6,000 unit IV EVERY HD PRN PRN Reason: AFTER EACH Last Admin: 01/12/24 20:03 Dose: 6,000 unit Heparin Sodium (Porcine) (Heparin 1,000 Unit/Ml Vial) 0 unit IV PRN PRN PRN Reason: Heparin Re-Bolus Per Protocol Last Admin: 01/12/24 08:33 Dose: 3,000 unit Albumin Human (Albumin 25%) 50 mls @ 100 mls/hr IV EVERY HD [facility] Heparin Sodium/Dextrose (Heparin Drip 25,000 Units/5oo Ml Premix) 25,000 unit in 500 mls @ 0 mls/hr IV UD [facility]; Protocol Stop: 01/14/24 01:30 Last Admin: 01/13/24 14:06 Dose: 500 mls Sodium Chloride (Sodium Chloride) 250 mls @ 0 mls/hr IV .Q0M [facility] Pantoprazole Sodium 80 mg/ (Sodium Chloride) 250 mls @ 25 mls/hr IV Q10H [facility]; Protocol Last Admin: 01/13/24 18:00 Dose: Not Given Ipratropium [place] (Ipratropium Brom 0.5mg/2.5ml) 0.5 mg NEB [id number] [facility] Last Admin: 01/13/24 19:34 Dose: 0.5 mg Metoprolol Tartrate (Metoprolol Tar 25 Mg Tab) 12.5 mg PO BID [facility] Last Admin: 01/13/24 08:50 Dose: 12.5 mg Multivitamins/Minerals (Multivitamin Tab) 1 tab PO DAILY [facility] Last Admin: 01/13/24 08:50 Dose: 1 tab Ondansetron HCl (Ondansetron 4 Mg/2 Ml Vial) 4 mg IV Q6HP PRN PRN Reason: NAUSEA / VOMITING Microbiology Results 01/03/24 23:32 Blood - Blood Aerobic Blood Culture - Final No growth in 5 days. 01/03/24 23:32 Blood - Blood Anaerobic Blood Culture - Final No growth in 5 days. 01/03/24 23:16 Blood - Blood Aerobic Blood Culture - Final No growth in 5 days. 01/03/24 23:16 Blood - Blood Anaerobic Blood Culture - Final No growth in 5 days. Assessment/ Plan: Nephrology No dyspnea No chest pain No acute events overnight Sister Roz [phone] Vitals, medications, blood work and imaging reviewed in the chart General: In no apparent distress, Cooperative HEENT: Atraumatic Neck: Supple Respiratory: Normal air movement Cardiovascular: No edema, Regular rate/rhythm Gastrointestinal: Soft and benign, Non-distended Musculoskeletal: No clubbing, No contractures Integumentary: No cyanosis. Multiple ecchymoses Neurological: Normal speech Blood work reviewed in the chart. Imagings Data: EXAM DESCRIPTION: Chest Single View CLINICAL HISTORY: Ams COMPARISON: None. FINDINGS: Single frontal radiograph view of the chest. Cardiomediastinal silhouette: Atherosclerotic calcification of thoracic aorta. Heart is not enlarged. Lungs: No consolidation, pneumothorax, or pleural effusion. Leads overlie the chest. Bones: No acute osseous abnormality. Degenerative change of the spine and shoulders. Upper abdomen: No abnormality identified. IMPRESSION: 1. No acute pulmonary process identified. EXAM DESCRIPTION: CT of the head without contrast CLINICAL HISTORY: Ams COMPARISON: None available TECHNIQUE: Axial CT of the head obtained from the skull apex to the skull base without contrast. This exam was performed according to our departmental dose- optimization program, which includes automated exposure control, adjustment of the mA and/or kV according to patient size and/or use of iterative reconstruction technique. FINDINGS: No acute intracranial hemorrhage identified. No mass, mass effect, shift of the midline, abnormal extra-axial fluid collection or CT evidence of acute ischemic change identified. The ventricular system and sulcal spaces are mildly enlarged compatible with mild cerebral atrophy. Scattered areas of hypodensity throughout the supratentorial white matter are nonspecific and may be related to chronic small vessel ischemic change. The visualized paranasal sinuses and the mastoids are clear. No skull fracture identified. Visualized orbits and globes are unremarkable. Atherosclerotic calcification of the intracranial internal carotid arteries. IMPRESSION: 1. No acute intracranial abnormality by CT criteria. Conclusions/Impression: Stage III KRISTAL likely ATN CKD (Stage unclear) with Proteinuria -No NSAIDs -Dr. Dobson placed tunneled HD CVC; Daily HD initiated 01-07-24 -Hepatitis panel negative -Renal and Bladder US reviewed -HD placement at [facility] HTN Tachycardia -Continue Metoprolol BID Hypoalbuminemia -Consider protein supplementation Anemia due to blood loss in the setting of an elevated INR Anemia in chronic illness/ CKD B12 Deficiency -Transfuse PRBC prn -Retacrit qHD -Continue SC B12 -Continue MVI MGUS -Serum and Urine DEN pending Cigarette Smoker -Recommend cessation Hospitalist note reviewed
[2024-01-14 05:29] LABS: Hematocrit 20.5 % (39.6-49.0); Hemoglobin 6.9 g/dL (13.6-17.9); MCH 30.1 pg (27.0-35.0); MCHC 33.5 g/dL (32.0-36.0); MCV 89.8 fL (80-100); MPV 7.7 fL (7.6-11.3); Platelets 272 thou/uL (152-406); RBC Red Blood Cell Count 2.29 M/uL (4.33-5.43); Red Cell Distribution Width 16.6 % (12.1-15.2)
[2024-01-14 05:56] LABS: AST/SGOT 17 U/L (15-37); Albumin 2.3 g/dL (3.4-5.0); Albumin/Globulin Ratio 0.6 (1.1-1.8); Alkaline Phosphatase 66 U/L (45-117); Anion Gap 10.8 mEq/L (5.0-15.0); BUN Blood Urea Nitrogen 30 mg/dL (7-18); Bicarbonate 28 mEq/L (21-32); Bilirubin Total 0.3 mg/dL (0.2-1.0); Globulin 3.7 g/dL (2.3-3.5); Glomerular Filtration Rate 6 ml/min (=/>90); Glucose Level 86 mg/dL (74-106); Potassium 3.8 mEq/L (3.5-5.1); Sodium Level 140 mEq/L (136-145)
[2024-01-14 06:00] LABS: ALT/SGPT < 10 U/L (16-61)
[2024-01-14] MEDS: EPINEPHRINE 1 MG/ML VIAL ONE (06:56)
[2024-01-14] MEDS ORDERED: propofoL 200 MG/20 ML VIAL IV ONE (07:06)
[2024-01-14] MEDS ORDERED: LIDOCAINE 1% MPF 5 ML VIAL ONE (07:06)
[2024-01-14] MEDS: NA CHLORIDE 0.9% 500 ML ONE (07:10)
[2024-01-14] MEDS: FUROSEMIDE 20 MG/ 2ML VIAL IV ONE ×2 (08:00→17:55)
[2024-01-14] MEDS ORDERED: NA CHLORIDE 0.9% 250 ML IV SCH (08:00)
--- NOTE | 2024-01-14 11:32 | P.PN ---
Date of Service: 01/14/24 Subjective: Went with GI for scopes this morning Transfused 1 unit packed red blood cells today Desats to low 80s while sleeping, started 1 L nasal cannula this afternoon ROS: 10 point ROS as noted above, otherwise negative Physical exam GEN: Awake alert and oriented x 3, NAD HEENT: Normal conjunctiva, sclera anicteric CV: Regular rate and rhythm, no murmur noted right IJ central line in place Pulm: Nonlabored respirations on room air ABD: Soft and benign on palpation, normal active bowel sounds, ND/NT MSK: No joint tenderness Integumentary: No rashes Neuro: Normal speech, normal affect Vitals reviewed Problem List Acute kidney injury Acute blood loss anemia secondary to lower GI bleed Supratherapeutic INR-resolved 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 History of hypertension History of COPD Plan Stage III Acute kidney injury No significant improvement in renal function Temporary dialysis catheter placed right IJ 01/06 Had first session of dialysis 01/06 continue HD per nephrology Avoid NSAIDs, IV contrast Monitor renal function daily PT consulted working on setting up outpatient dialysis Acute blood loss anemia secondary to lower GI bleed Supratherapeutic INR-resolved Vitamin B12 deficiency 2 episodes of melena evening 01/09 Has received 6 units PRBC and 2 unit FFP Monitor H&H,6.9/20.5- transfuse one unit PRBC today 01/13 heparin drip restarted today Likely transition to eliquis when appropriate IVC filter placed 01/11 GI - Colonoscopy 01/13- mass found-Dr. Dobson consulted Vit B12 150- cynacobalamin 1000mcg SQ daily x 7 total doses 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 Patient with history of extensive left lower extremity DVT and PE in 2018 Was transferred to [facility] for evaluation for thrombectomy Reports he does have a stent placed to that leg, likely had thrombectomy and stent placement Venous ultrasound performed here shows DVT of left superficial femoral and left popliteal veins Heparin drip started 01/06- restarted 01/13 s/p GI scope procedures IVC filter placement 01/11 After scope/once cleared by GI, transition heparin drip to NOAC History of hypertension History of COPD Continue home meds VTE: Heparin drip- restarted Code: Full Dispo: Greater than 3 days <Amaya Ramos - Last Filed: 01/14/24 18:15> Patient seen and examined, plan of care discussed with Ms. Ramos. Patient has a 4 cm ascending colon mass which could be the source of GI bleed Dr. Vickers recommend resection. 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 General surgery Dr. Dobson informed who will evaluate patient for surgery. Continue heparin drip for DVT/PE Transfuse 1 more unit PRBC given hemoglobin of 6.9 <maggie barrios - Last Filed: 01/14/24 19:00>
[2024-01-14] MEDS: HEPARIN/D5W 25,000 UNIT/500 ML BAG IV SCH (12:30)
[2024-01-14 19:29] LABS: Hematocrit 24.5 % (39.6-49.0); Hemoglobin 8.3 g/dL (13.6-17.9)
--- NOTE | 2024-01-14 21:35 | P.PN ---
Date of Service: 01/14/24 Vital Signs Temp Pulse Resp BP Pulse Ox 98.3 F 92 H 20 151/77 H 99 01/14/24 16:00 01/14/24 17:55 01/14/24 16:00 01/14/24 17:55 01/14/24 16:00 Medications Albuterol Sulfate (Albuterol 2.5 Mg/3 Ml Neb Cris) 2.5 mg NEB [id number] PRN PRN Reason: SHORTNESS OF BREATH Cyanocobalamin (Cyanocobalamin 1000mcg/Ml Inj) 1,000 mcg SQ DAILY [facility] Stop: 01/18/24 09:01 Last Admin: 01/14/24 07:29 Dose: Not Given Epoetin Octavio (Epoetin Octavio 10,000 Unit/Ml Vial) 10,000 unit IV EVERY HD [facility] Last Admin: 01/12/24 18:45 Dose: 10,000 unit Heparin Sodium (Porcine) (Heparin 1,000 Unit/Ml Vial) 6,000 unit IV EVERY HD PRN PRN Reason: AFTER EACH Last Admin: 01/12/24 20:03 Dose: 6,000 unit Heparin Sodium (Porcine) (Heparin 1,000 Unit/Ml Vial) 0 unit IV PRN PRN PRN Reason: Heparin Re-Bolus Per Protocol Last Admin: 01/12/24 08:33 Dose: 3,000 unit Heparin Sodium (Porcine) (Heparin 1,000 Unit/Ml Vial) 0 unit IV PRN PRN PRN Reason: Heparin Re-Bolus Per Protocol Albumin Human (Albumin 25%) 50 mls @ 100 mls/hr IV EVERY HD [facility] Sodium Chloride (Sodium Chloride) 250 mls @ 0 mls/hr IV .Q0M [facility] Pantoprazole Sodium 80 mg/ (Sodium Chloride) 250 mls @ 25 mls/hr IV Q10H [facility]; Protocol Last Admin: 01/14/24 18:02 Dose: 250 mls Sodium Chloride (Sodium Chloride) 250 mls @ 0 mls/hr IV .Q0M [facility] Heparin Sodium/Dextrose (Heparin Drip 25,000 Units/5oo Ml Premix) 25,000 unit in 500 mls @ 0 mls/hr IV UD [facility]; Protocol Last Admin: 01/14/24 12:30 Dose: 500 mls Ipratropium [place] (Ipratropium Brom 0.5mg/2.5ml) 0.5 mg NEB [id number] [facility] Last Admin: 01/14/24 13:25 Dose: 0.5 mg Metoprolol Tartrate (Metoprolol Tar 25 Mg Tab) 12.5 mg PO BID [facility] Last Admin: 01/14/24 07:29 Dose: Not Given Multivitamins/Minerals (Multivitamin Tab) 1 tab PO DAILY [facility] Last Admin: 01/14/24 07:29 Dose: Not Given Ondansetron HCl (Ondansetron 4 Mg/2 Ml Vial) 4 mg IV Q6HP PRN PRN Reason: NAUSEA / VOMITING Microbiology Results 01/03/24 23:32 Blood - Blood Aerobic Blood Culture - Final No growth in 5 days. 01/03/24 23:32 Blood - Blood Anaerobic Blood Culture - Final No growth in 5 days. 01/03/24 23:16 Blood - Blood Aerobic Blood Culture - Final No growth in 5 days. 01/03/24 23:16 Blood - Blood Anaerobic Blood Culture - Final No growth in 5 days. Assessment/ Plan: Nephrology No dyspnea No chest pain No acute events overnight Sister Roz [phone] Vitals, medications, blood work and imaging reviewed in the chart General: In no apparent distress, Cooperative HEENT: Atraumatic Neck: Supple Respiratory: Normal air movement Cardiovascular: No edema, Regular rate/rhythm Gastrointestinal: Soft and benign, Non-distended Musculoskeletal: No clubbing, No contractures Integumentary: No cyanosis. Multiple ecchymoses Neurological: Normal speech Blood work reviewed in the chart. Imagings Data: EXAM DESCRIPTION: Chest Single View CLINICAL HISTORY: Ams COMPARISON: None. FINDINGS: Single frontal radiograph view of the chest. Cardiomediastinal silhouette: Atherosclerotic calcification of thoracic aorta. Heart is not enlarged. Lungs: No consolidation, pneumothorax, or pleural effusion. Leads overlie the chest. Bones: No acute osseous abnormality. Degenerative change of the spine and shoulders. Upper abdomen: No abnormality identified. IMPRESSION: 1. No acute pulmonary process identified. EXAM DESCRIPTION: CT of the head without contrast CLINICAL HISTORY: Ams COMPARISON: None available TECHNIQUE: Axial CT of the head obtained from the skull apex to the skull base without contrast. This exam was performed according to our departmental dose- optimization program, which includes automated exposure control, adjustment of the mA and/or kV according to patient size and/or use of iterative reconstruction technique. FINDINGS: No acute intracranial hemorrhage identified. No mass, mass effect, shift of the midline, abnormal extra-axial fluid collection or CT evidence of acute ischemic change identified. The ventricular system and sulcal spaces are mildly enlarged compatible with mild cerebral atrophy. Scattered areas of hypodensity throughout the supratentorial white matter are nonspecific and may be related to chronic small vessel ischemic change. The visualized paranasal sinuses and the mastoids are clear. No skull fracture identified. Visualized orbits and globes are unremarkable. Atherosclerotic calcification of the intracranial internal carotid arteries. IMPRESSION: 1. No acute intracranial abnormality by CT criteria. Conclusions/Impression: Stage III KRISTAL likely ATN CKD (Stage unclear) with Proteinuria -No NSAIDs -Dr. Dobson placed tunneled HD CVC; Daily HD initiated 01-07-24 -Hepatitis panel negative -Renal and Bladder US reviewed -HD placement at [facility] Dialysis HTN Tachycardia -Continue Metoprolol BID Hypoalbuminemia -Consider protein supplementation Anemia due to blood loss in the setting of an elevated INR Anemia in chronic illness/ CKD B12 Deficiency -Transfuse PRBC prn -Retacrit qHD -Continue SC B12 -Continue MVI MGUS -Serum and Urine DEN pending 4cm Ascending Colon Mass Hx PE/ DVT -Surgery evaluation pending Cigarette Smoker -Recommend cessation Hospitalist note reviewed
[2024-01-14 22:20] LABS: KAPPA LIGHT CHAIN, FREE SERUM <0.6 mg/L (3.3-19.4); LAMBDA LIGHT CHAIN, FREE SERUM 17.1 mg/L (5.7-26.3)
[2024-01-15 08:29] LABS: Absolute Basophils 0.1 K/uL (0-0.5); Absolute Eosinophils 0.1 K/uL (0-0.5); Absolute Lymphocytes (CBC) 2.1 K/uL (0.7-4.9); Absolute Monocytes 1.9 K/uL (0.1-1.3); Absolute Neutrophil 5.5 K/uL (1.8-8.0); Eosinophils % 1.4 % (0-4.4); Hematocrit 23.3 % (39.6-49.0); Hemoglobin 7.7 g/dL (13.6-17.9); Lymphocytes % 21.7 % (15.3-44.8); MCH 29.5 pg (27.0-35.0); MCHC 33.1 g/dL (32.0-36.0); MCV 89.2 fL (80-100); MPV 7.6 fL (7.6-11.3); Monocytes % 19.6 % (3.3-12.3); Neutrophils % 56.3 % (41.7-73.7); Nucleated RBC Absolute Count 0.1 (0-0); Nucleated Red Blood Cells % 0.8 % (0-0); Platelets 270 thou/uL (152-406); RBC Red Blood Cell Count 2.61 M/uL (4.33-5.43); Red Cell Distribution Width 16.8 % (12.1-15.2)
[2024-01-15 08:44] LABS: Anion Gap 12.9 mEq/L (5.0-15.0); Magnesium 2.3 mg/dL (1.6-2.4); Phosphorus 6.9 mg/dL (2.5-4.9); Potassium 3.9 mEq/L (3.5-5.1)
--- NOTE | 2024-01-15 09:10 | P.PN ---
Date of Service: 01/15/24 Subjective: Arouses easily, sleeping comfortably, no complaints this morning No new complaints ROS: 10 point ROS as noted above, otherwise negative Physical exam GEN: No acute distress, AAO X3, calm and sleepy HEENT: Normal conjunctiva, sclera anicteric CV: RRR, no murmur noted, right IJ central line in place Pulm: Nonlabored respirations on room air, symmetrical chest wall movement, on room air ABD: Soft and benign on palpation, bowel sounds present, ND/NT MSK: No joint tenderness Integumentary: No rashes Neuro: Normal speech, normal affect Vitals reviewed Problem List Acute kidney injury Acute blood loss anemia secondary to lower GI bleed Supratherapeutic INR-resolved 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 History of hypertension History of COPD Plan Stage III Acute kidney injury No significant improvement in renal function Temporary dialysis catheter placed right IJ 01/06 Had first session of dialysis 01/06 continue HD per nephrology Avoid NSAIDs, IV contrast Monitor renal function daily, BUN/creatinine to 35/11.2, GFR 4, UOP 300ml on 01/14/24 PT consulted- participating working on setting up outpatient dialysis Dialysis today- 1.8 L removed Acute blood loss anemia secondary to lower GI bleed Supratherapeutic INR-resolved Vitamin B12 deficiency 2 episodes of melena evening 01/09 Has received 6 units PRBC and 2 unit FFP Monitor H&H,6.9/20.5- transfuse one unit PRBC 01/13, post transfusion H/H 8.3/24.5 H/H 7.7/23.2 01/14, recheck 8.0/23.7 Heparin drip Likely transition to eliquis when appropriate IVC filter placed 01/11 GI - Colonoscopy 01/13- mass found-Dr. Dobson consulted Vit B12 150- cynacobalamin 1000mcg SQ daily x 7 total doses 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 Patient with history of extensive left lower extremity DVT and PE in [address] [facility] for evaluation for thrombectomy Reports he does have a stent placed to that leg, likely had thrombectomy and s tent placement Venous ultrasound performed here shows DVT of left superficial femoral and left popliteal veins Heparin drip started 01/06- restarted 01/13 s/p GI scope procedures IVC filter placement 01/11 After scope/once cleared by GI, transition heparin drip to NOAC History of hypertension History of COPD Continue home meds VTE: Heparin drip Code: Full Dispo: Greater than 3 days
[2024-01-15 10:38] LABS: Band Neutrophils 7 % (0-1); Differential Total Cells Count 100; Lymphocytes 20 % (15-42); Metamyelocytes 3 % (0-0); Monocytes 8 % (0-10); Nucleated Red Blood Cells 2 /100WBC; Segmented Neutrophils 60 % (40-80)
[2024-01-15 10:39] LABS: Anisocytosis 2+; Blood Morphology Comment NOTED (NOT SEEN); Hypochromasia 2+; Platelet Estimate ADEQ
[2024-01-15 11:59] LABS: Hematocrit 23.7 % (39.6-49.0)
[2024-01-15 20:16] LABS: Immunoglobulin A 91 mg/dL (70-320); Immunoglobulin G 936 mg/dL (600-1540); Immunoglobulin M 12 mg/dL (50-300)
--- NOTE | 2024-01-15 21:21 | P.PN ---
Date of Service: 01/15/24 Vital Signs Temp Pulse Resp BP Pulse Ox 97.5 F 86 16 122/59 L 95 01/15/24 16:00 01/15/24 16:00 01/15/24 16:00 01/15/24 16:00 01/15/24 16:00 Medications Albuterol Sulfate (Albuterol 2.5 Mg/3 Ml Neb Cris) 2.5 mg NEB [id number] PRN PRN Reason: SHORTNESS OF BREATH Cyanocobalamin (Cyanocobalamin 1000mcg/Ml Inj) 1,000 mcg SQ DAILY [facility] Stop: 01/18/24 09:01 Last Admin: 01/15/24 08:30 Dose: 1,000 mcg Epoetin Octavio (Epoetin Octavio 10,000 Unit/Ml Vial) 10,000 unit IV EVERY HD [facility] Last Admin: 01/15/24 12:45 Dose: 10,000 unit Heparin Sodium (Porcine) (Heparin 1,000 Unit/Ml Vial) 6,000 unit IV EVERY HD PRN PRN Reason: AFTER EACH Last Admin: 01/15/24 14:03 Dose: 6,000 unit Heparin Sodium (Porcine) (Heparin 1,000 Unit/Ml Vial) 0 unit IV PRN PRN PRN Reason: Heparin Re-Bolus Per Protocol Last Admin: 01/12/24 08:33 Dose: 3,000 unit Heparin Sodium (Porcine) (Heparin 1,000 Unit/Ml Vial) 0 unit IV PRN PRN PRN Reason: Heparin Re-Bolus Per Protocol Albumin Human (Albumin 25%) 50 mls @ 100 mls/hr IV EVERY HD [facility] Sodium Chloride (Sodium Chloride) 250 mls @ 0 mls/hr IV .Q0M [facility] Pantoprazole Sodium 80 mg/ (Sodium Chloride) 250 mls @ 25 mls/hr IV Q10H [facility]; Protocol Last Admin: 01/15/24 15:25 Dose: 250 mls Sodium Chloride (Sodium Chloride) 250 mls @ 0 mls/hr IV .Q0M [facility] Heparin Sodium/Dextrose (Heparin Drip 25,000 Units/5oo Ml Premix) 25,000 unit in 500 mls @ 0 mls/hr IV UD [facility]; Protocol Last Admin: 01/15/24 08:26 Dose: 500 mls Ipratropium [place] (Ipratropium Brom 0.5mg/2.5ml) 0.5 mg NEB [id number] [facility] Last Admin: 01/15/24 21:10 Dose: 0.5 mg Metoprolol Tartrate (Metoprolol Tar 25 Mg Tab) 12.5 mg PO BID [facility] Last Admin: 01/15/24 08:28 Dose: 12.5 mg Multivitamins/Minerals (Multivitamin Tab) 1 tab PO DAILY [facility] Last Admin: 01/15/24 08:28 Dose: 1 tab Ondansetron HCl (Ondansetron 4 Mg/2 Ml Vial) 4 mg IV Q6HP PRN PRN Reason: NAUSEA / VOMITING Microbiology Results 01/03/24 23:32 Blood - Blood Aerobic Blood Culture - Final No growth in 5 days. 01/03/24 23:32 Blood - Blood Anaerobic Blood Culture - Final No growth in 5 days. 01/03/24 23:16 Blood - Blood Aerobic Blood Culture - Final No growth in 5 days. 01/03/24 23:16 Blood - Blood Anaerobic Blood Culture - Final No growth in 5 days. Assessment/ Plan: Nephrology No dyspnea No chest pain No acute events overnight Sister Roz [phone] Vitals, medications, blood work and imaging reviewed in the chart General: In no apparent distress, Cooperative HEENT: Atraumatic Neck: Supple Respiratory: Normal air movement Cardiovascular: No edema, Regular rate/rhythm Gastrointestinal: Soft and benign, Non-distended Musculoskeletal: No clubbing, No contractures Integumentary: No cyanosis. Multiple ecchymoses Neurological: Normal speech Blood work reviewed in the chart. Imagings Data: EXAM DESCRIPTION: Chest Single View CLINICAL HISTORY: Ams COMPARISON: None. FINDINGS: Single frontal radiograph view of the chest. Cardiomediastinal silhouette: Atherosclerotic calcification of thoracic aorta. Heart is not enlarged. Lungs: No consolidation, pneumothorax, or pleural effusion. Leads overlie the chest. Bones: No acute osseous abnormality. Degenerative change of the spine and shoulders. Upper abdomen: No abnormality identified. IMPRESSION: 1. No acute pulmonary process identified. EXAM DESCRIPTION: CT of the head without contrast CLINICAL HISTORY: Ams COMPARISON: None available TECHNIQUE: Axial CT of the head obtained from the skull apex to the skull base without contrast. This exam was performed according to our departmental dose- optimization program, which includes automated exposure control, adjustment of the mA and/or kV according to patient size and/or use of iterative reconstruction technique. FINDINGS: No acute intracranial hemorrhage identified. No mass, mass effect, shift of the midline, abnormal extra-axial fluid collection or CT evidence of acute ischemic change identified. The ventricular system and sulcal spaces are mildly enlarged compatible with mild cerebral atrophy. Scattered areas of hypodensity throughout the supratentorial white matter are nonspecific and may be related to chronic small vessel ischemic change. The visualized paranasal sinuses and the mastoids are clear. No skull fracture identified. Visualized orbits and globes are unremarkable. Atherosclerotic calcification of the intracranial internal carotid arteries. IMPRESSION: 1. No acute intracranial abnormality by CT criteria. Conclusions/Impression: Stage III KRISTAL likely ATN CKD (Stage unclear) with Proteinuria -No NSAIDs -Dr. Dobson placed tunneled HD CVC; Daily HD initiated 01-07-24 -Hepatitis panel negative -Renal and Bladder US reviewed -HD placement at [facility] Dialysis HTN Tachycardia -Continue Metoprolol BID Hypoalbuminemia -Consider protein supplementation Anemia due to blood loss in the setting of an elevated INR Anemia in chronic illness/ CKD B12 Deficiency -Transfuse PRBC prn -Retacrit qHD -Continue SC B12 -Continue MVI MGUS -Serum and Urine DEN pending 4cm Ascending Colon Mass Hx PE/ DVT -Surgery evaluation pending Cigarette Smoker -Recommend cessation Hospitalist note reviewed Case reviewed with Dr. Self
[2024-01-16 04:36] LABS: Absolute Basophils 0.1 K/uL (0-0.5); Absolute Eosinophils 0.1 K/uL (0-0.5); Absolute Lymphocytes (CBC) 2.1 K/uL (0.7-4.9); Absolute Neutrophil 4.9 K/uL (1.8-8.0); Eosinophils % 1.2 % (0-4.4); Hematocrit 23.5 % (39.6-49.0); Hemoglobin 7.9 g/dL (13.6-17.9); Lymphocytes % 22.9 % (15.3-44.8); MCH 29.8 pg (27.0-35.0); MCHC 33.6 g/dL (32.0-36.0); MCV 88.9 fL (80-100); MPV 7.3 fL (7.6-11.3); Monocytes % 21.9 % (3.3-12.3); Nucleated RBC Absolute Count 0.1 (0-0); Nucleated Red Blood Cells % 1.3 % (0-0); Platelets 250 thou/uL (152-406); RBC Red Blood Cell Count 2.65 M/uL (4.33-5.43); Red Cell Distribution Width 16.7 % (12.1-15.2)
[2024-01-16 04:58] LABS: Anion Gap 7.8 mEq/L (5.0-15.0); Phosphorus 3.8 mg/dL (2.5-4.9); Potassium 3.8 mEq/L (3.5-5.1)
--- NOTE | 2024-01-16 07:58 | P.PN ---
Date of Service: 01/16/24 Subjective: Awake this morning, smiling, feeling better ROS: 10 point ROS as noted above, otherwise negative Physical exam GEN: AAOx3, NAD, calm and cooperative HEENT: Normal conjunctiva, sclera anicteric CV: RRR, no murmur noted, right IJ central line in place Pulm: symmetrical chest wall movement, on room air, bilateral clear breath sounds on auscultation ABD: Soft and benign on palpation, ND/NT, bowel sounds present, MSK: No joint tenderness Integumentary: No rashes Neuro: Normal speech, normal affect Vitals reviewed Problem List Acute kidney injury Acute blood loss anemia secondary to lower GI bleed Supratherapeutic INR-resolved 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 History of hypertension History of COPD Plan Stage III Acute kidney injury No significant improvement in renal function Temporary dialysis catheter placed right IJ 01/06 Had first session of dialysis 01/06 continue HD per nephrology Avoid NSAIDs, IV contrast Monitor renal function daily, BUN/creatinine to 18/7.10, GFR 8, UOP 300ml on 01/14/24 PT consulted- participating working on setting up outpatient dialysis Dialysis 01/14- 1.8 L removed Dialysis schedule TTS, OP dialysis chair being prepared Acute blood loss anemia secondary to lower GI bleed Supratherapeutic INR-resolved Vitamin B12 deficiency 2 episodes of melena evening 01/09 Has received 6 units PRBC and 2 unit FFP Monitor H&H,6.9/20.5- transfuse one unit PRBC 01/13, post transfusion H/H 8.3/24.5 H/H 7.9/23.5 Heparin drip Likely transition to eliquis when appropriate IVC filter placed 01/11 GI - Colonoscopy 01/13- mass found-Dr. Dobson consulted Vit B12 150- cynacobalamin 1000mcg SQ daily x 7 total doses 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 Patient with history of extensive left lower extremity DVT and PE in [address] [facility] for evaluation for thrombectomy Reports he does have a stent placed to that leg, likely had thrombectomy and stent placement Venous ultrasound performed here shows DVT of left superficial femoral and left popliteal veins Heparin drip started 01/06- restarted 01/13 s/p GI scope procedures IVC filter placement 01/11 After scope/once cleared by GI, transition heparin drip to NOAC History of hypertension History of COPD Continue home meds VTE: Heparin drip Code: Full Dispo: Greater than 3 days
[2024-01-16] MEDS: POTASSIUM CL SA 10 MEQ TAB PO ONE (09:00)
--- NOTE | 2024-01-16 11:43 | P.PN ---
Nephrology (S) Pt seen lying in bed, remains on protonix gtt and heparin drip. No acute complaints, wanting to go home. Vitals, medications, blood work and imaging reviewed in the chart General: In no apparent distress, Cooperative HEENT: Atraumatic, sclera anicteric Neck: Rt sided hemosplit dialysis catheter Respiratory: Normal air movement, non tachypnec, no rales Cardiovascular: Mild distal edema, Regular rate/rhythm mostly Gastrointestinal: Soft and benign, Non-distended Musculoskeletal: No clubbing, No contractures Integumentary: No cyanosis. Multiple ecchymoses Neurological: Normal speech Blood work reviewed in the chart. Conclusions/Impression: Sub-acute Stage III renal failure most likely 2nd to ATN (with relative hypotension and severe anemia noted on admission). Renal function tests normal in 2019. -S/p placement of a hemosplit dialysis catheter. HD initiated 01-07-24 -Renal and Bladder US reviewed, no obstructive uropathy -Non anuric -Severe azotemia improved -Cr level does rise back up off HD, remains dialysis dependent -Cont iHD TTS, OP HD set up, awaiting discharge HTN, underlying -Cont to trend, prev stopped IVF. Cautious UF on dialysis as tolerated Anemia multifactorial but with post hemorrhagic loss in the setting of suprathrapeutic INR -Monitor closely -Anticoagulation management per primary team
[2024-01-16] MEDS: PANTOPRAZOLE INJ 80 MG in NA CHLORIDE 0.9% 250 ML IV SCH (15:25)
[2024-01-17 04:22] LABS: Anion Gap 7.9 mEq/L (5.0-15.0); Potassium 3.9 mEq/L (3.5-5.1)
--- NOTE | 2024-01-17 07:49 | P.PN ---
Date of Service: 01/17/24 Subjective: Awake and feeling well this morning Monitoring H&H, 7.6/23.1, will recheck in the afternoon No new complaints ROS: 10 point ROS as noted above, otherwise negative Physical exam GEN: No acute distress, alert and oriented x 3 HEENT: Normal conjunctiva, sclera anicteric CV: Regular rate and rhythm, S1 S2 present, no murmur noted, right IJ central line in place Pulm: symmetrical chest wall movement, on room air, bilateral clear breath sounds on auscultation ABD: Soft and benign on palpation, ND/NT, bowel sounds present MSK: No joint tenderness Integumentary: No rashes Neuro: Normal speech, normal affect Vitals reviewed Problem List Stage III Acute kidney injury Acute blood loss anemia secondary to lower GI bleed Supratherapeutic INR-resolved Vitamin B12 deficiency 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 History of hypertension History of COPD Plan Stage III Acute kidney injury No significant improvement in renal function Temporary dialysis catheter placed right IJ 01/06 Had first session of dialysis 01/06 continue HD per nephrology Avoid NSAIDs, IV contrast Monitor renal function daily, BUN/creatinine to 18/7.10, GFR 8, UOP 300ml on 01/14/24 PT consulted- participating working on setting up outpatient dialysis Dialysis 01/14- 1.8 L removed Dialysis schedule TTS, OP dialysis chair being prepared Acute blood loss anemia secondary to lower GI bleed Supratherapeutic INR-resolved Vitamin B12 deficiency 2 episodes of melena evening 01/09 Has received 6 units PRBC and 2 unit FFP Monitor H&H,6.9/20.5- transfuse one unit PRBC 01/13, post transfusion H/H 8.3/24.5 H&H, 7.6/23.1, will recheck in the afternoon Heparin drip stopped 01/16- transistioned to Eliquis Likely transition to eliquis when appropriate IVC filter placed 01/11 GI - Colonoscopy 01/13- mass found likely causing the Bleeding Dr. 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 Patient with history of extensive left lower extremity DVT and PE in 2018 Was transferred to [facility] for evaluation for thrombectomy Reports he does have a stent placed to that leg, likely had thrombectomy and stent placement Venous ultrasound performed here shows DVT of left superficial femoral and left popliteal veins Heparin drip stopped 01/16- transitioned to Eliquis BID IVC filter placement 01/11 After scope/once cleared by GI, transition heparin drip to NOAC History of hypertension History of COPD Continue home meds VTE: Heparin drip Code: Full Dispo: Greater than 3 days
[2024-01-17 08:20] LABS: Absolute Basophils 0.1 K/uL (0-0.5); Absolute Eosinophils 0.1 K/uL (0-0.5); Absolute Lymphocytes (CBC) 1.9 K/uL (0.7-4.9); Absolute Neutrophil 4.9 K/uL (1.8-8.0); Basophils % 0.9 % (0-1.3); Eosinophils % 1.3 % (0-4.4); Hematocrit 23.1 % (39.6-49.0); Hemoglobin 7.6 g/dL (13.6-17.9); MCH 29.5 pg (27.0-35.0); MCV 89.5 fL (80-100); MPV 7.2 fL (7.6-11.3); Monocytes % 22.6 % (3.3-12.3); Neutrophils % 54.2 % (41.7-73.7); Nucleated RBC Absolute Count 0.1 (0-0); Nucleated Red Blood Cells % 0.8 % (0-0); Platelets 251 thou/uL (152-406); RBC Red Blood Cell Count 2.58 M/uL (4.33-5.43)
[2024-01-17] MEDS: POTASSIUM CL SA 10 MEQ TAB PO ONE (08:47)
[2024-01-17 10:11] LABS: Band Neutrophils 4 % (0-1); Differential Total Cells Count 100; Segmented Neutrophils 51 % (40-80)
[2024-01-17 10:12] LABS: Anisocytosis 1+; Blood Morphology Comment NOTED (NOT SEEN); Eosinophils 3 % (0-3); Hypochromasia 1+; Lymphocytes 22 % (15-42); Metamyelocytes 1 % (0-0); Monocytes 18 % (0-10); Myelocytes 1 % (0-0); Nucleated Red Blood Cells 1 /100WBC; Platelet Estimate ADEQ
[2024-01-17] MEDS: APIXABAN 2.5 MG TABLET PO SCH (10:40)
[2024-01-17 12:04] LABS: Hematocrit 23.9 % (39.6-49.0)
[2024-01-17 16:35] LABS: Abnormal Protein Band 1 0.6 g/dL; Albumin, (SPE) 2.6 g/dL (3.8-4.8); Alpha-1-Globulins 0.4 g/dL (0.2-0.3); Beta 1 Globulin 0.3 g/dL (0.4-0.6); Gamma Globulins 0.9 g/dL (0.8-1.7); INTERPRETATION REPORT; Total Protein 5.6 g/dL (6.1-8.1)
--- NOTE | 2024-01-17 18:21 | PN ---
Subjective: This is for a new problem patient has on the abdomen. We had seen the patient in the [facility] due to history of a hemodialysis catheter placement for renal failure. Now, he has anemia chronic ally. The endoscopy was done, found to have a near obstructive mass, fungating mass on the ascending colon with evidence of the previous bleeding and also near obstructing, so I was consulted for surgi mark intervention, possible hemicolectomy. The patient has been here for more than a week with differ ent problems. He comes with DVT. Also, a [place] filter have to be placed for that. He comes al so very coagulopathic with an INR of 14 from blood thinners. During the process also, they found abdullahi e gastritis, they found a colonic mass present and also anemia. He also had issue of the renal failu re. He was having a hemodialysis catheter for anemia, though it has been extensive, but at this mome nt also that fungating mass is causing almost obstruction of his abdomen. He has feel some discomfor t, pain, distention plus also we may be leave this contributing to his he is anemia. Initial patholo gy obviously was just a little miniscule part of that area and has not reflected any cancer yet altho ugh the way it shows, the way it presents, we cannot rule that out completely. Objective: Chest: Clear. Abdomen: Soft and depressible. It is mildly distended. Extremities: Good capillary refill. Obviously we have DVTs in the left side, catheter on the right chest. Assessment And Plan: From the surgical standpoint, obviously this will require, if it is located whe re I see in the pictures. Dr. Vickers located that area and also tattooed that area. Then, he may re quire right hemicolectomy with exploratory laparotomy, possible ostomy, bowel resection. Benefits, a lternatives, and risks were fully explained to the patient which include, but not limited to infectio n, bleeding, damage to adjacent structures, anesthesia complication, recurrence MA and even . H e also understands this may not relieve symptoms. He might need more than one surgical intervention. I am trying to get all the primary and child development consultant together to make sure that they have their medica l issues under control before we take this patient to this big event. At the same time, it is hard f or them to send somebody home with anemia, with a fungating mass causing obstruction in that region. So, even with all these medical problems, we might have to find this at least the best window of opp ortunity we can get trying to get this resolved, that will require also stopping his anticoagulation, require ICU, require renal evaluation, require also a bowel prep, so I have to see how he is going t o tolerate that. FAY/SAMIA Voice ID: [id number] Report ID: [id number]
--- NOTE | 2024-01-17 19:06 | PN ---
The patient was seen and evaluated at [facility] in [place]. The patient is alert, a wake, seen on dialysis in the dialysis suite on second floor. Discussed plan with Balaji the dialysis nurse. The patient examined and evaluated on dialysis, tolerating dialysis well today. Blood pressu res are stable with 130 systolic range. Electrolytes look good. Since his potassium has been reason able in the 3 range, he is getting dialyzed with a 4 K bath. He is getting ultrafiltration to keep h im close to EDW. Breathing has stabilized. The patient feels overall well. Discussed plan with the dialysis nurse. Also see dialysis notes and flow sheets for further details. /SAMIA Voice ID: [id number] Report ID: [id number]
[2024-01-17 20:27] LABS: Immunofixation Electrophoresis REPORT
[2024-01-18 03:43] LABS: Absolute Basophils 0.1 K/uL (0-0.5); Absolute Eosinophils 0.1 K/uL (0-0.5); Absolute Monocytes 2.3 K/uL (0.1-1.3); Absolute Neutrophil 5.1 K/uL (1.8-8.0); Basophils % 0.9 % (0-1.3); Hemoglobin 8.1 g/dL (13.6-17.9); Lymphocytes % 20.8 % (15.3-44.8); MCH 30.4 pg (27.0-35.0); MCHC 33.9 g/dL (32.0-36.0); MCV 89.6 fL (80-100); MPV 7.6 fL (7.6-11.3); Monocytes % 23.6 % (3.3-12.3); Neutrophils % 53.7 % (41.7-73.7); Nucleated RBC Absolute Count 0.2 (0-0); Nucleated Red Blood Cells % 1.9 % (0-0); Platelets 241 thou/uL (152-406); RBC Red Blood Cell Count 2.67 M/uL (4.33-5.43); Red Cell Distribution Width 17.1 % (12.1-15.2)
[2024-01-18 03:58] LABS: Anion Gap 9.2 mEq/L (5.0-15.0); Potassium 4.2 mEq/L (3.5-5.1)
--- NOTE | 2024-01-18 12:42 | P.PN ---
Date of Service: 01/18/24 Subjective: Awake and conversing well Started Eliquis yesterday Monitoring H/H ROS: 10 point ROS as noted above, otherwise negative Physical exam GEN: alert and oriented x 3, NAD HEENT: Normal conjunctiva, sclera anicteric CV: RRR, S1 S2 present, no murmur noted, right IJ central line in place Pulm: symmetrical chest wall movement, bilateral clear breath sounds on auscultation, on room air ABD: Soft and benign on palpation, ND/NT, normoactive bowel sounds MSK: No joint tenderness Integumentary: No rashes Neuro: Normal speech, normal affect Vitals reviewed Problem List Stage III Acute kidney injury Acute blood loss anemia secondary to lower GI bleed Supratherapeutic INR-resolved Vitamin B12 deficiency 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 History of hypertension History of COPD Plan Stage III Acute kidney injury No significant improvement in renal function Temporary dialysis catheter placed right IJ 01/06 Had first session of dialysis 01/06 continue HD per nephrology Avoid NSAIDs, IV contrast Monitor renal function daily PT consulted- participating working on setting up outpatient dialysis Dialysis 01/14- 1.8 L removed Dialysis schedule TTS, OP dialysis chair being prepared Acute blood loss anemia secondary to lower GI bleed Supratherapeutic INR-resolved Vitamin B12 deficiency 2 episodes of melena evening 01/09 Has received 7 units PRBC and 2 unit FFP H&H 8.11/05.0 Heparin drip stopped 01/16- transistioned to Eliquis IVC filter placed 01/11 GI - Colonoscopy 01/13- mass found likely causing the Bleeding Dr. 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 Patient with history of extensive left lower extremity DVT and PE in 2019 Was transferred to [facility] for evaluation for thrombectomy Reports he does have a stent placed to that leg, likely had thrombectomy and stent placement Venous ultrasound performed here shows DVT of left superficial femoral and left popliteal veins Heparin drip stopped 01/16- transitioned to Eliquis BID IVC filter placement 01/11 After scope/once cleared by GI, transition heparin drip to NOAC History of hypertension History of COPD Continue home meds VTE: Heparin drip Code: Full Dispo: Greater than 3 days
--- NOTE | 2024-01-18 19:39 | PN ---
Date of Progress Note: 01/18/2024 Subjective: The patient is seen in room 409 at [facility] in [place]. The patient h ad dialysis yesterday and tolerated it well. The patient was seen on dialysis by myself yesterday. He denies any headache, nausea, vomiting. His breathing is good. He is looking comfortable. Does g et confused at time. He is a poor historian. His sister is in the room with him as well. States th at once he is well, she will have him at home and he can live in [place] with them. She lives w ith her 2 brothers including Mr. Tiago Salvador. Madeleine is stating and his sisters confirming that william rebolledo may be transferring to [place] for treatment and evaluation of his colon mass, which may have bee n the reason why he was bleeding. Currently, he has not had any significant bleeding. His hemoglobi n has been stable since last night in the low 8 range. He had been on Coumadin before. The Eliquis was difficult to afford. They will need to figure out how to anticoagulate going forward and also ge t some instructions around treatment of his colon mass. Once the patient is stable, he is going to b e returning back to [place]. States that will be living in [place] and has been placed alr daija at the dialysis unit for outpatient dialysis. The patient otherwise is comfortable. No acute n eed for dialysis today. Objective: Vital Signs: Stable. Blood pressure 138/66, pulse 80 and regular, respirations are 14 a nd comfortable, O2 sats are 93% to 95% on room air. Lungs: Clear. Abdomen: Soft. Extremities: Reveal no significant edema. Laboratory Data: His WBC count is 9.5, hemoglobin 8.1, hematocrit 24, platelet count of 241. Sodium 135, potassium 4.2, chloride 104, bicarb 26, BUN 13, creatinine 6.33. Assessment/plan: Continue with 3 times a week dialysis. The patient seems to be dialysis dependent. Has a tunneled catheter on his right chest that looks clean for now. Treatment of his colon cancer , GI bleeding. Once clinically stabilized, will need outpatient dialysis, already has placement in [place] [facility] h[facility]. /MIGUELL Voice ID: [id number] Report ID: [id number]
[2024-01-19 06:53] LABS: Absolute Basophils 0.1 K/uL (0-0.5); Absolute Eosinophils 0.1 K/uL (0-0.5); Absolute Lymphocytes (CBC) 2.6 K/uL (0.7-4.9); Absolute Monocytes 2.1 K/uL (0.1-1.3); Absolute Neutrophil 5.4 K/uL (1.8-8.0); Eosinophils % 1.1 % (0-4.4); Hematocrit 25.8 % (39.6-49.0); Hemoglobin 8.5 g/dL (13.6-17.9); Lymphocytes % 24.9 % (15.3-44.8); MCH 29.6 pg (27.0-35.0); MCHC 32.9 g/dL (32.0-36.0); MCV 90.2 fL (80-100); MPV 7.4 fL (7.6-11.3); Monocytes % 20.8 % (3.3-12.3); Neutrophils % 52.2 % (41.7-73.7); Nucleated RBC Absolute Count 0.1 (0-0); Nucleated Red Blood Cells % 1.3 % (0-0); Platelets 268 thou/uL (152-406); RBC Red Blood Cell Count 2.86 M/uL (4.33-5.43); Red Cell Distribution Width 17.3 % (12.1-15.2)
[2024-01-19 07:32] LABS: Atypical Lymphocytes 1 %; Band Neutrophils 6 % (0-1); Blood Morphology Comment NOTED (NOT SEEN); Differential Total Cells Count 100; Eosinophils 2 % (0-3); Lymphocytes 23 % (15-42); Metamyelocytes 2 % (0-0); Monocytes 15 % (0-10); Nucleated Red Blood Cells 1 /100WBC; Platelet Estimate ADEQ; Segmented Neutrophils 49 % (40-80)
[2024-01-19 07:33] LABS: Basophilic Stippling 1+; Polychromasia 2+
--- NOTE | 2024-01-19 08:03 | P.PN ---
Date of Service: 01/19/24 Subjective: Sleeping, awakens easily, feeling "OK" no new complaints ROS: 10 point ROS as noted above, otherwise negative Physical exam GEN: No acute distress, sleeping, awakens easily, oriented x 3 HEENT: Normal conjunctiva, sclera anicteric CV: Regular rate and rhythm, S1 S2 present, no murmur noted, right IJ central line in place Pulm: Nonlabored breathing bilateral clear breath sounds on auscultation, on room air ABD: Soft and benign on palpation, normoactive bowel sounds MSK: No joint tenderness Integumentary: No rashes Neuro: Normal speech, normal affect Vitals reviewed Problem List Stage III Acute kidney injury Acute blood loss anemia secondary to lower GI bleed Supratherapeutic INR-resolved Vitamin B12 deficiency 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 History of hypertension History of COPD Plan Stage III Acute kidney injury No significant improvement in renal function Temporary dialysis catheter placed right IJ 01/06 Had first session of dialysis 01/06 continue HD per nephrology Avoid NSAIDs, IV contrast Monitor renal function daily PT consulted- participating working on setting up outpatient dialysis Dialysis 01/14- 1.8 L removed Dialysis schedule TTS, OP dialysis chair being prepared Acute blood loss anemia secondary to lower GI bleed Supratherapeutic INR-resolved Vitamin B12 deficiency 2 episodes of melena evening 01/09 Has received 7 units PRBC and 2 unit FFP H&H 8.5/25.8 Heparin drip stopped 01/16- transistioned to Eliquis IVC filter placed 01/11 GI - Colonoscopy 01/13- mass found likely causing the Bleeding Dr. 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 for evaluation for thrombectomy Reports he does have a stent placed to that leg, likely had thrombectomy and stent placement Venous ultrasound performed here shows DVT of left superficial femoral and left popliteal veins Heparin drip stopped 01/16- transitioned to Eliquis BID IVC filter placement 01/11 After scope/once cleared by GI, transition heparin drip to NOAC History of hypertension History of COPD Continue home meds VTE: Eliquis started 01/16 Code: Full Dispo: Transfer to [facility], pending bed
[2024-01-19 14:29] VITALS: O2SAT 94
--- NOTE | 2024-01-19 14:59 | PN ---
Date of Progress Note: 01/19/2024 Reason For Service: Right colon mass. Subjective: Vital signs stable. Physical exam unchanged. This morning, I discussed the case with c olorectal surgeon from [facility], initiated by Dr. Self as instructed yesterday. Our plan for this pa tient may be right hemicolectomy, but now with all these medical issues, I believe maybe it is stretc torres a little bit the resources of this institution. This patient comes with a series of medical pro blems including DVTs for which he has to have anticoagulation. Come to us also with Coumadin. Come to us also with hypertension, COPD, also with renal failure requiring new-onset hemodialysis for whic h the dialysis catheter was placed in. All this combined, I believe he should be in the higher level of care. So, we discussed the case with the colorectal with the information that I had and then bas gloriay he will accept him for transfer. The patient mentioned previously the possibility of that and he agreed with that. FAY/SAMIA Voice ID: [id number] Report ID: [id number]
[2024-01-19 17:51] VITALS: BP 160/77; TEMP 97
[2024-01-19] MEDS ORDERED: HEPARIN/D5W 25,000 UNIT/500 ML BAG IV SCH (20:00)
--- NOTE | 2024-01-19 21:49 | P.PN ---
Date of Service: 01/19/24 Vital Signs Temp Pulse Resp BP Pulse Ox 97.0 F 80 18 160/77 H 95 01/19/24 16:00 01/19/24 16:00 01/19/24 16:00 01/19/24 16:00 01/19/24 16:00 Microbiology Results 01/03/24 23:32 Blood - Blood Aerobic Blood Culture - Final No growth in 5 days. 01/03/24 23:32 Blood - Blood Anaerobic Blood Culture - Final No growth in 5 days. 01/03/24 23:16 Blood - Blood Aerobic Blood Culture - Final No growth in 5 days. 01/03/24 23:16 Blood - Blood Anaerobic Blood Culture - Final No growth in 5 days. Assessment/ Plan: Nephrology No dyspnea No chest pain No acute events overnight Sister Roz [phone] Vitals, medications, blood work and imaging reviewed in the chart General: In no apparent distress, Cooperative HEENT: Atraumatic Neck: Supple Respiratory: Normal air movement Cardiovascular: No edema, Regular rate/rhythm Gastrointestinal: Soft and benign, Non-distended Musculoskeletal: No clubbing, No contractures Integumentary: No cyanosis. Multiple ecchymoses Neurological: Normal speech Blood work reviewed in the chart. Imagings Data: EXAM DESCRIPTION: Chest Single View CLINICAL HISTORY: Ams COMPARISON: None. FINDINGS: Single frontal radiograph view of the chest. Cardiomediastinal silhouette: Atherosclerotic calcification of thoracic aorta. Heart is not enlarged. Lungs: No consolidation, pneumothorax, or pleural effusion. Leads overlie the chest. Bones: No acute osseous abnormality. Degenerative change of the spine and should ers. Upper abdomen: No abnormality identified. IMPRESSION: 1. No acute pulmonary process identified. EXAM DESCRIPTION: CT of the head without contrast CLINICAL HISTORY: Ams COMPARISON: None available TECHNIQUE: Axial CT of the head obtained from the skull apex to the skull base without contrast. This exam was performed according to our departmental dose- optimization program, which includes automated exposure control, adjustment of the mA and/or kV according to patient size and/or use of iterative reconstruction technique. FINDINGS: No acute intracranial hemorrhage identified. No mass, mass effect, shift of the midline, abnormal extra-axial fluid collection or CT evidence of acute ischemic change identified. The ventricular system and sulcal spaces are mildly enlarged compatible with mild cerebral atrophy. Scattered areas of hypodensity throughout the supratentorial white matter are nonspecific and may be related to chronic small vessel ischemic change. The visualized paranasal sinuses and the mastoids are clear. No skull fracture identified. Visualized orbits and globes are unremarkable. Atherosclerotic calcification of the intracranial internal carotid arteries. IMPRESSION: 1. No acute intracranial abnormality by CT criteria. Conclusions/Impression: Stage III KRISTAL likely ATN CKD (Stage unclear) with Proteinuria -No NSAIDs -Dr. Dobson placed tunneled HD CVC; Daily HD initiated 01-07-24 -Hepatitis panel negative -Renal and Bladder US reviewed -HD placement at [facility] Dialysis HTN Tachycardia -Continue Metoprolol BID Hypoalbuminemia -Consider protein supplementation Anemia due to blood loss in the setting of an elevated INR Anemia in chronic illness/ CKD B12 Deficiency -Transfuse PRBC prn -Retacrit qHD -Continue SC B12 -Continue MVI MGUS -Serum and Urine DEN pending 4cm Ascending Colon Mass Hx PE/ DVT -Surgery evaluation pending Cigarette Smoker -Recommend cessation Case reviewed with Dr. Self
== END 2024-01-19 19:40 | disposition short-term general hospital (02) | DRG 674 ==
LOC: ER 22:40 → 4TH 01-04 01:22
PROVIDERS: ADMIT Internal Medicine; ATTEND Internal Medicine
PROC: 30233K1 Transfusion of Nonautologous Frozen Plasma into Peripheral Vein, Percutaneous Approach (ICD-10-PCS; 2024-01-04)
PROC: 30233N1 Transfusion of Nonautologous Red Blood Cells into Peripheral Vein, Percutaneous Approach (ICD-10-PCS; 2024-01-04)
PROC: 5A1D70Z Performance of Urinary Filtration, Intermittent, Less than 6 Hours Per Day (ICD-10-PCS; 2024-01-07)
PROC: 02HV33Z Insertion of Infusion Device into Superior Vena Cava, Percutaneous Approach (ICD-10-PCS; 2024-01-07)
PROC: 0JH60XZ Insertion of Tunneled Vascular Access Device into Chest Subcutaneous Tissue and Fascia, Open Approach (ICD-10-PCS; principal; 2024-01-07 07:30)
PROC: 06H03DZ Insertion of Intraluminal Device into Inferior Vena Cava, Percutaneous Approach (ICD-10-PCS; 2024-01-12)
PROC: 0DB78ZX Excision of Stomach, Pylorus, Via Natural or Artificial Opening Endoscopic, Diagnostic (ICD-10-PCS; 2024-01-14)
PROC: 0DBK8ZX Excision of Ascending Colon, Via Natural or Artificial Opening Endoscopic, Diagnostic (ICD-10-PCS; 2024-01-14)
PROC: 0DB68ZX Excision of Stomach, Via Natural or Artificial Opening Endoscopic, Diagnostic (ICD-10-PCS; 2024-01-14 07:30)
DX: N17.0 Acute kidney failure with tubular necrosis (principal); D62 Acute posthemorrhagic anemia; D68.32 Hemorrhagic disorder due to extrinsic circulating anticoagulants; E87.0 Hyperosmolality and hypernatremia; I82.412 Acute embolism and thrombosis of left femoral vein; I82.432 Acute embolism and thrombosis of left popliteal vein; R64 Cachexia; I12.0 Hypertensive chronic kidney disease with stage 5 chronic kidney disease or end stage renal disease; D68.9 Coagulation defect, unspecified; N18.6 End stage renal disease; D63.1 Anemia in chronic kidney disease; K62.1 Rectal polyp; K63.5 Polyp of colon; E87.5 Hyperkalemia; K64.8 Other hemorrhoids; K63.9 Disease of intestine, unspecified; D47.2 Monoclonal gammopathy; K29.70 Gastritis, unspecified, without bleeding; E83.39 Other disorders of phosphorus metabolism; D51.9 Vitamin B12 deficiency anemia, unspecified; J44.9 Chronic obstructive pulmonary disease, unspecified; K44.9 Diaphragmatic hernia without obstruction or gangrene; T45.515A Adverse effect of anticoagulants, initial encounter; F17.210 Nicotine dependence, cigarettes, uncomplicated; Z99.2 Dependence on renal dialysis; Z79.01 Long term (current) use of anticoagulants; Z68.27 Body mass index [BMI] 27.0-27.9, adult; Z28.310 Unvaccinated for COVID-19; Z86.718 Personal history of other venous thrombosis and embolism; Z86.711 Personal history of pulmonary embolism
CPT/HCPCS: 36200; 36415; 36430; 37191; 70450; 71045; 76000; 76700; 76770; 76857; 76937; 80048; 80053; 80069; 81001; 82043; 82140; 82570; 82607; 82728; 82784; 82947; 83520; 83540; 83605; 83735; 84100; 84156; 84165; 84466; 84484; 84550; 85014; 85018; 85025; 85027; 85044; 85610; 85730; 86021; 86038; 86160; 86334; 86704; 86706; 86803; 86850; 86900; 86901; 86920; 86927; 87040; 87340; 88304; 88305; 88312; 90935; 93005; 93306; 93970; 96360; 96361; 96372; 97110; 97116; 97161; 97530; 99152; 99153; 99285; A4216; C1752; C1893; C9113; J0171; J0690; J0696; J1644; J1940; J2001; J2250; J2371; J2704; J3010; J3420; J3430; J7030; J7040; J7050; J7644; J7799; P9016; P9017; P9047; P9059; Q9966